=== PATIENT | female | born 1935 | race Caucasian/White ===

== ENCOUNTER → 2019-07-15 10:06 | Outpatient (BNVA) | payer MEDICARE, SELFPAY | PROVIDERS: Family Provider Nurse Practitioner; PCP Nurse Practitioner; Visit Provider Nurse Practitioner | DX: E03.8 Other specified hypothyroidism (principal); E78.2 Mixed hyperlipidemia; I10 Essential (primary) hypertension; E55.9 Vitamin D deficiency, unspecified | CPT/HCPCS: 80053; 80061; 82306; 84443 ==

== ENCOUNTER → 2019-12-30 08:05 | Outpatient (BNVA) | payer MEDICARE, SELFPAY | PROVIDERS: Family Provider Nurse Practitioner; PCP Nurse Practitioner; Visit Provider Nurse Practitioner | DX: E03.8 Other specified hypothyroidism (principal); E55.9 Vitamin D deficiency, unspecified; E78.2 Mixed hyperlipidemia; I10 Essential (primary) hypertension | CPT/HCPCS: 80053; 80061; 82306; 84443 ==

== ENCOUNTER → 2020-07-21 08:52 | Outpatient (BNVA) | payer MEDICARE, SELFPAY | PROVIDERS: Family Provider Nurse Practitioner; PCP Nurse Practitioner; Visit Provider Nurse Practitioner | DX: E03.8 Other specified hypothyroidism (principal); E78.2 Mixed hyperlipidemia; I10 Essential (primary) hypertension; E55.9 Vitamin D deficiency, unspecified | CPT/HCPCS: 80053; 80061; 82306; 84443 ==

== ENCOUNTER → 2021-02-10 08:52 | Outpatient (BNVA) | payer MEDICARE, SELFPAY | PROVIDERS: Family Provider Nurse Practitioner; PCP Nurse Practitioner; Visit Provider Nurse Practitioner | DX: E55.9 Vitamin D deficiency, unspecified (principal); I10 Essential (primary) hypertension; E78.2 Mixed hyperlipidemia; E03.8 Other specified hypothyroidism | CPT/HCPCS: 80053; 80061; 82306; 84443 ==

== ENCOUNTER → 2021-05-07 08:46 | Outpatient (BNVA) | payer MEDICARE, SELFPAY | PROVIDERS: Family Provider Nurse Practitioner; PCP Nurse Practitioner; Visit Provider Nurse Practitioner | DX: E03.8 Other specified hypothyroidism (principal); E55.9 Vitamin D deficiency, unspecified; I10 Essential (primary) hypertension | CPT/HCPCS: 80053; 80061; 82306; 84443 ==

== ENCOUNTER → 2021-08-12 13:36 | Outpatient (BNVA) | payer MEDICARE, SELFPAY | PROVIDERS: Family Provider Nurse Practitioner; PCP Nurse Practitioner; Visit Provider Nurse Practitioner | DX: E03.8 Other specified hypothyroidism (principal); E55.9 Vitamin D deficiency, unspecified; I10 Essential (primary) hypertension; E11.65 Type 2 diabetes mellitus with hyperglycemia | CPT/HCPCS: 80053; 80061; 82306; 84443 ==

== ENCOUNTER → 2022-01-31 09:47 | Outpatient (BNVA) | payer MEDICARE, SELFPAY | PROVIDERS: Family Provider Nurse Practitioner; PCP Nurse Practitioner; Visit Provider Nurse Practitioner | DX: E03.8 Other specified hypothyroidism (principal); E78.2 Mixed hyperlipidemia | CPT/HCPCS: 80053; 80061; 84443 ==

== ENCOUNTER → 2022-02-02 09:46 | Outpatient (BNVA) | payer MEDICARE, SELFPAY | PROVIDERS: Family Provider Nurse Practitioner; PCP Nurse Practitioner; Visit Provider Nurse Practitioner | DX: M25.512 Pain in left shoulder (principal) | CPT/HCPCS: 73030 ==

== ENCOUNTER → 2022-04-15 09:38 | Outpatient (BNVA) | payer MEDICARE, SELFPAY | PROVIDERS: Family Provider Nurse Practitioner; PCP Nurse Practitioner; Visit Provider Nurse Practitioner | DX: I10 Essential (primary) hypertension (principal); E03.8 Other specified hypothyroidism; E78.2 Mixed hyperlipidemia | CPT/HCPCS: 80053; 84443; 85025 ==

== ENCOUNTER 2022-07-30 10:54 | Emergency (ER) | payer MEDICARE, SELFPAY ==
[2022-07-30 10:59] VITALS: BP 124/62; PULSE 65; RESP 16; TEMP 37.2; O2SAT 99
--- NOTE | 2022-07-30 11:21 | XRR_ITS ---
PROCEDURE INFORMATION: Exam: XR Right Hand Exam date and time: 07/30/2022 11:42 AM Age: 86 years old Clinical indication: Pain; Hand; Right; Additional info: Pain post fall TECHNIQUE: Imaging protocol: Radiologic exam of the right hand. 3image(s) are provided. Views: 3 or more views. COMPARISON: No relevant prior studies available of the hand. Wrist same day. FINDINGS: Bones/joints: Osseous alignment is maintained.No displaced fracture or dislocation is appreciated. There is some chronic advanced degeneration of the 1st carpometacarpal junction predominantly with some adjacent soft tissue calcification. There is some chronic spurring of the dorsal interphalangeal distal joint margins. There is some mild chronic radiocarpal level narrowing. There is some subtle cortical irregularity about the proximal aspect of the 2nd and 3rd digit distal phalanges. Consider if there is localized point tenderness. Soft tissues: No radiopaque foreign body or subcutaneous emphysema is appreciated. There appears to be some slight prominence of the soft tissues overall. XR/XR hand RT min 3V* [id number] IMPRESSION: There is chronic degeneration with maintained osseous alignment. There is some subtle cortical irregularity which could represent spurring averaging although some nondisplaced injury could also present in this fashion of the proximal aspect of the 2nd and 3rd digit distal phalanges.
--- NOTE | 2022-07-30 11:21 | XRR_ITS ---
PROCEDURE INFORMATION: Exam: XR Right Wrist Exam date and time: 07/30/2022 11:42 AM Age: 86 years old Clinical indication: Pain; Wrist; Right; Additional info: Pain post fall TECHNIQUE: Imaging protocol: Radiologic exam of the right wrist. 2image(s) are provided. Views: 1 or 2 views. COMPARISON: No relevant prior studies available of the wrist. Hand same day. FINDINGS: Bones/joints: Osseous alignment is maintained.No displaced fracture or dislocation is appreciated. There is chronic degeneration of the 1st carpometacarpal junction predominantly with the adjacent soft tissue calcification. There are subchondral cystic degenerative changes. There is radiocarpal degenerative narrowing present. There is some linear lucency indicative of nondisplaced fracture of the distal radius of the radiocarpal junction. Soft tissues: No radiopaque foreign body or subcutaneous emphysema is appreciated. XR/XR wrist RT 2V [id number] IMPRESSION: There is subtle cortical irregularity and linear lucency indicative of nondisplaced fracture of the distal radius of the radiocarpal junction. No displaced fracture or dislocation is appreciated.
--- NOTE | 2022-07-30 11:21 | XRR_ITS ---
PROCEDURE INFORMATION: Exam: XR Right Humerus Exam date and time: 07/30/2022 11:42 AM Age: 86 years old Clinical indication: Pain; Upper arm; Right; Additional info: Pain post fall TECHNIQUE: Imaging protocol: Radiologic exam of the right humerus. 3image(s) are provided. Views: 2 or more views. COMPARISON: No relevant prior studies available. FINDINGS: Bones/joints: Osseous alignment is maintained.No displaced fracture or dislocation is appreciated.There is slightly decreased bone mineralization overall. There is chronic degeneration of the shoulder with subacromial and glenohumeral joint space narrowing indicative of chronic rotator cuff disease along with acromioclavicular hypertrophy. There is chronic degeneration of the superolateral aspect of the humeral head. There is some chronic spurring of the humeral epicondyles. There is some mild spurring of the olecranon and radial head with no fat pad elevation currently appreciated. Lungs: No lobar consolidation is appreciated. Pleural space: No pneumothorax is appreciated. Soft tissues: No radiopaque foreign body or subcutaneous emphysema is appreciated. XR/[place] [id number] IMPRESSION: There are chronic degenerative changes with maintained glenohumeral alignment.No fracture or dislocation is appreciated.
--- NOTE | 2022-07-30 12:11 | PC.NURSE ---
PT FELL FROM STANDING ON A CHAIR ATTEMPTING TO HANG UP A CLOCK PT LANDED ON HER RIGHT SIDE AND HAS A SWOLLEN RIGHT HAND. PT DENIES HITTING HER HEAD AND WAS DOWN FOR OVER 12 HOURS.
[2022-07-30 12:13] VITALS: BP 124/62; PULSE 58; RESP 16; O2SAT 98
--- NOTE | 2022-07-30 12:31 | ED_ITS ---
HPI - Extremity Problem General: Chief complaint: Extremity Injury, Upper Stated complaint: RIGHT HAND /WRIST PAIN S/P FALL Time Seen by Provider: 07/30/22 11:07 History of Present Illness: 86-year-old female presents emergency room via EMS from a local rehab center after he preplacement few weeks ago. Patient was complaining of right hip and knee pain within the past few days. Described the pain as throbbing sensation with severity of 7 out of 10. She further reviews that the pain started after her rehab section few days ago but denies any direct fall or injury. No fever, chills, nausea or vomiting. Review of Systems General: Reports: 10 or more systems reviewed and unremarkable except in HPI and below Resp: Reports: dyspnea GI: Denies: nausea, vomiting or hematemesis Musc: Reports: extremity pain, extremity swelling, joint swelling and other (Patient complaining of right humerus pain right wrist pain and right hand); Denies: neck pain, back pain, limited range of motion or deformity Neuro: Denies: headache(s), numbness in extremities, weakness in extremities, sensory changes, lack of coordination, difficulty walking, frequent falls, dizziness, vertigo, confusion or behavioral changes PFSH ED PFSH: Medical History Adult onset hypothyroidism Basal cell carcinoma (BCC) Cigarette smoker Essential (primary) hypertension Mixed hyperlipidemia Vitamin D insufficiency Surgical History History of cataract surgery History of hip surgery right Family History Other CHF (congestive heart failure) Cancer Diabetes Social History Smoking and tobacco status: current every day smoker Second hand smoke exposure: Yes Smoking risk assessment/counseling performed?: Yes Alcohol intake: never Desire information about alcohol rehabilitation?: No Counseling given: No Substance/Drug Use: never Desire information about substance/drug rehabilitation?: No Counseling given: No Adopted: No Caregiver/support person: No Lives independently: Yes Marital status: Single Number of children: 2 Current occupational status: retired Do you think of yourself as: Straight/Heterosexual Current gender identity: Female Physical Exam Narrative: EXAM NARRATIVE: Patient is awake and alert without acute distress. Const: COMMON NORMALS: no acute distress, average body habitus, patient oriented x3 and no limitations HENMT: COMMON NORMALS: normocephalic and atraumatic HEAD & SCALP: normal to inspection, normocephalic, atraumatic and Acrocyanosis present; no abrasion, no Abarca's sign, no contusion and no cranial bruits FACE & SINUS: Acrocyanosis present Neck/C-Spine: GENERAL: Yes normal visual inspection, Yes trachea midline, Yes anterior neck swelling and Yes lymphadenopathy Chest: COMMONS NORMALS: normal inspection of the chest, normal palpation of entire chest wall, normal inspection of the breasts and normal palpation of the breasts Breast/axilla inspection: Yes normal inspection of the breasts BREAST/AXILLA PALPATION: Yes normal palpation of the breasts Resp: COMMON NORMALS: normal respiratory effort and No retractions Extremity: NARRATIVE EXTREMITY EXAM: Some diffuse swelling of the right knee with some tenderness upon palpation to the anterior aspect. Emergency motion at the right hip. Obvious deformity or shortening skin without any signs of acute infection RIGHT UPPER EXTREMITY: No clavicle, No bony scapula, Yes upper arm (Tenderness along the lateral aspect of the humerus no obvious deformity.) and Yes wrist (Right wrist with somewhat swelling and bruising but no obvious deformity. ) Right wrist: Yes palpation and Yes neurovascular exam Neuro: COMMON NORMALS: patient oriented x3 Skin: COMMON NORMALS: no rashes or lesions noted, no wounds and turgor normal GENERAL SKIN EXAM: no rashes or lesions noted and turgor normal Course ED course: Patient made comfortable emergency room. She declined pain medication at this time. Splint was applied to the wrist after the x-ray was reviewed and discussed with patient and family. Daughter was also at bedside given history. Discussed patient with family. Also discussed the x-ray finding with family and they are willing to take patient back to [facility] for further rehab. Consultations: Consultation #1: Discussed patient with the orthopedics on-call . I reviewed the pelvic x-ray and recommended getting x-ray of the knee. The x-ray was done Vital Signs: Vital signs: Vital Signs Temperature 98.9 F 07/30/22 10:59 Pulse Rate 58 L 07/30/22 12:13 Respiratory Rate 16 07/30/22 12:13 Blood Pressure 124/62 07/30/22 12:13 Pulse Oximetry 98 07/30/22 12:13 Oxygen Delivery Me thod Room Air 07/30/22 12:13 MDM - Extremity (Nontraumatic) Medical Decision Making History provided by daughter and patient. Discussed x-ray finding with patient. Recommend close follow-up PCP. We will follow-up with official x-ray findings at this time. Consultation with orthopedics on-call Medical Records I reviewed the patient's medical records. Lab Data Radiology Impressions Hand X-Ray 07/30/22 11:21 IMPRESSION: There is chronic degeneration with maintained osseous alignment. There is some subtle cortical irregularity which could represent spurring averaging although some nondisplaced injury could also present in this fashion of the proximal aspect of the 2nd and 3rd digit distal phalanges. Humerus X-Ray 07/30/22 11:21 IMPRESSION: There are chronic degenerative changes with maintained glenohumeral alignment.No fracture or dislocation is appreciated. Wrist X-Ray 07/30/22 11:21 IMPRESSION: There is subtle cortical irregularity and linear lucency indicative of nondisplaced fracture of the distal radius of the radiocarpal junction. No displaced fracture or dislocation is appreciated. Imaging Data Other Xray: My impression: Humerus, wrist and hand no obvious fracture Discharge Plan Discharge Patient Disposition: Home Clinical Impression: Fall, Contusion of right wrist Condition: Stable Prescriptions: New naproxen 375 mg tablet,delayed release (DR/EC) 375 mg PO Q12H PRN (Reason: pain) Qty: 20 0RF No Action levothyroxine 150 mcg tablet 150 mcg PO DAILY Qty: 90 0RF cholecalciferol (vitamin D3) 1,250 mcg (50,000 unit) tablet 50,000 unit PO .1st and 16th monthly Qty: 2 5RF atorvastatin 10 mg tablet 10 mg PO DAILY Qty: 30 5RF amlodipine [Norvasc] 10 mg tablet 10 mg PO DAILY Qty: 30 5RF lisinopril 40 mg tablet 40 mg PO DAILY Qty: 30 5RF Discharge Orders: Discharge ED (Routine); Ordered 07/30/22 Ordered By: Jaqui Andrade Referrals: Marilou Pastrana, BEE BREEDER-C [Primary Care Provider] - Discharge Diet: Regular Discharge Activity: Resume usual activity Patient Instructions: Opioid Safety, Pain Management Coding Level of Care Code ED Tile And Marble Setter for Srinivas Henriquez
== END 2022-07-30 12:59 | disposition home or self-care (01) ==
PROVIDERS: Emergency Provider Family Medicine; PCP Nurse Practitioner
DX: S60.211A Contusion of right wrist, initial encounter (principal); F17.210 Nicotine dependence, cigarettes, uncomplicated; I10 Essential (primary) hypertension; E78.2 Mixed hyperlipidemia; X58.XXXA Exposure to other specified factors, initial encounter
CPT/HCPCS: 73060; 73100; 73130; 99283

== ENCOUNTER → 2022-08-11 16:10 | Outpatient (BNVA) | payer MEDICARE, SELFPAY | PROVIDERS: PCP Nurse Practitioner; Visit Provider Nurse Practitioner | DX: R53.83 Other fatigue (principal) | CPT/HCPCS: 80053; 81000; 84443; 85025; 87077; 87086; 87184 ==

== ENCOUNTER 2022-09-11 11:05 | Inpatient (IN) | payer MEDICARE, SELFPAY ==
[2022-09-11] VITALS (81 sets, daily range): BP systolic 119–178; BP diastolic 47–94; PULSE 40–73; RESP 8–31; TEMP 36.8–37.1; O2SAT 89–100
--- NOTE | 2022-09-11 11:16 | W.ED.FALL ---
HPI - Fall General: Chief Complaint: Fall Stated Complaint: fall, weakness Time Seen by Provider: 09/11/22 11:15 History of Present Illness: Ms. Davies is a 86-year-old lady presenting with upper department for episode of generalized weakness and malaise. She reports that she was going to the bathroom and felt lightheaded so she went to sit on the floor. She was on the floor for a few hours and unable to get up. She currently feels improved. She does note increased urination over the past few days but otherwise denies changes in health. Denies focal neurologic symptoms or head strike/loss of consciousness. No other specific changes in health, exacerbating, or alleviating factors identified. Onset (ago): hour(s) Prolonged down time: hour(s) Symptoms prior to fall: lightheadedness Review of Systems General: Reports: 10 or more systems reviewed and unremarkable except in HPI and below PFSH ED PFSH: Medical History Accelerated hypertension Adult onset hypothyroidism Basal cell carcinoma (BCC) Bradycardia Cigarette smoker Essential (primary) hypertension Meningioma, cerebral Mixed hyperlipidemia Rhabdomyolysis Syncope Vitamin D insufficiency Surgical History History of cataract surgery History of hip surgery right Family History Other CHF (congestive heart failure) Cancer Diabetes Social History Smoking and tobacco status: current every day smoker Second hand smoke exposure: Yes Smoking risk assessment/counseling performed?: Yes Alcohol intake: never Desire information about alcohol rehabilitation?: No Counseling given: No Substance/Drug Use: never Desire information about substance/drug rehabilitation?: No Counseling given: No Adopted: No Caregiver/support person: No Lives independently: Yes Marital status: Single Number of children: 2 Current occupational status: retired Do you think of yourself as: Straight/Heterosexual Current gender identity: Female Physical Exam Const: COMMON NORMALS: patient oriented x3 and alert GENERAL APPEARANCE: cooperative and well developed HENMT: COMMON NORMALS: normocephalic and atraumatic HEAD & SCALP: normocephalic and atraumatic THROAT: posterior oropharynx normal OTHER: No christopher signs or raccoon eyes. No hemotympanum. No otorrhea or rhinorrhea. Jaw alignment normal. Dentition baseline. No obvious bony step-offs. No septal hematoma. No evidence of ocular entrapment. Eye: COMMON NORMALS: conjunctivae normal CONJUNCTIVA: Yes conjunctivae normal SCLERA: sclerae normal Neck/C-Spine: COMMON NORMALS: supple GENERAL: Yes trachea midline Resp: COMMON NORMALS: normal respiratory effort and clear to auscultation bilaterally EFFORT & INSPECTION: Yes able to speak in complete sentences AUSCULTATION: clear to auscultation bilaterally Cardio: COMMON NORMALS: regular rate and regular rhythm RATE: regular rate RHYTHM: regular rhythm GI: COMMON NORMALS: Soft to palpation PALPATION: Yes Soft to palpation and No Tenderness to palpation present (GI) Extremity: GENERAL: Yes normal exam except as noted and No edema Neuro: COMMON NORMALS: patient oriented x3, CN's II-XII intact bilaterally, moves all extremities, no focal motor deficits and no sensory deficits noted SENSORIUM/ORIENTATION: Yes alert and No Orientation impaired Psych: COMMON NORMALS: mental status grossly normal and Normal thought process present THOUGHT PROCESS: Normal thought process present Course Vital Signs: Vital signs: Vital Signs Temperature 97.9 F 09/14/22 04:00 Pulse Rate 50 L 09/14/22 14:03 Respiratory Rate 17 09/14/22 14:03 Blood Pressure 166/72 09/14/22 14:03 Pulse Oximetry 97 09/14/22 14:03 Oxygen Delivery Me thod Room Air 09/13/22 16:00 MDM - Fall Medical Decision Making 86-year-old lady presenting with chief complaint of fall and downtime. Has had generalized illness lately. Exam as above. Nontoxic. Head to toe exam performed. EKG demonstrates sinus rhythm with normal axis and intervals, no STEMI. Labs with no leukocytosis, normal hemoglobin and platelet count. Metabolic panel with normal electrolytes. CKD present. Elevated CK. Negative range 2-hour delta troponin. UA pending. Chest x-ray with reported Posterior right seventh rib fracture however on reexamination patient has no tenderness in this region. Patient treated with IV fluids during ED course. She is noted to have bradycardia which may be related to generalized weakness. There is evidence of rhabdomyolysis based on elevated CK. The results of ED evaluation were discussed with the patient including plan for admission due to requirement for level of care not available if discharged to prevent significant worsening/deterioration. Patient agreeable with plan. Discussed with hospitalist service who was agreeable to admit patient. Medical Records I reviewed the patient's medical records. Lab Data I reviewed the patient's lab results. 09/12/22 02:55 09/12/22 02:55 Radiology Impressions Chest X-Ray 09/11/22 11:24 IMPRESSION: 1. Posterior right 7th rib fracture. 2. Stable cardiomegaly. Carotid Doppler Study 09/11/22 18:18 IMPRESSION: 1. No hemodynamically significant stenosis. 2. There is 50-69% stenosis in the left distal common carotid artery at the bifurcation. REFERENCES: SRU CRITERIA. The degree of internal carotid artery stenosis is based on criteria defined by the Society of Radiologists in Ultrasound (SRU). Normal is no stenosis. Mild is less than 50% stenosis. Moderate is 50-69% stenosis. Severe is greater than 69% stenosis to near occlusion. Near occlusion is a markedly narrowed lumen. Total occlusion is no detectable patent lumen. Head CT 09/11/22 18:21 IMPRESSION: 1. No acute intracranial abnormality. 2. Chronic right sphenoid sinusitis changes. 3. There is a 1 cm left frontal convexity calcified meningioma present. Laboratory Results WBC 6.9 10^3/uL (4.0-10.0) 09/12/22 02:55 RBC 3.55 10^6/uL (4.1-5.3) L 09/12/22 02:55 Hgb 11.2 g/dL (11.5-15.3) L 09/12/22 02:55 Hct 35.0 % (37.0-47.0) L 09/12/22 02:55 MCV 98.6 fl (81-99) 09/12/22 02:55 MCH 31.5 pg (28.0-34.0) 09/12/22 02:55 MCHC 32.0 g/dL (30.0-36.0) D 09/12/22 02:55 RDW 14.4 % (12.1-15.1) 09/12/22 02:55 Plt Count 155 10^3/cmm (130-400) 09/12/22 02:55 MPV 11.2 fL (7.4-10.4) H 09/12/22 02:55 Neut % (Auto) 73.3 % 09/12/22 02:55 Lymph % (Auto) 18.2 % 09/12/22 02:55 [place] % (Auto) 7.3 % 09/12/22 02:55 Eos % (Auto) 0.4 % 09/12/22 02:55 Baso % (Auto) 0.4 % 09/12/22 02:55 Neut # (Auto) 5.04 10^3/uL (1.8-7.7) 09/12/22 02:55 Lymph # (Auto) 1.3 10^3/uL (0.8-4.8) 09/12/22 02:55 [place] # (Auto) 0.5 10^3/uL (0.2-0.9) 09/12/22 02:55 Eos # (Auto) 0.0 10^3/uL (0.0-0.8) 09/12/22 02:55 Baso # (Auto) 0.0 10^3/uL (0.0-0.1) 09/12/22 02:55 Nucleated RBC % (auto) 0 % 09/12/22 02:55 Nucleated RBCs # 0.0 /100WBC 09/12/22 02:55 Sodium 146 mmol/L (136-145) H 09/12/22 02:55 Potassium 3.6 mmol/L (3.5-5.1) 09/12/22 02:55 Chloride 111 mmol/L (98-107) H 09/12/22 02:55 Carbon Dioxide 21 mmol/L (22-29) L 09/12/22 02:55 Anion Gap 17.6 (5-19) 09/12/22 02:55 BUN 27 mg/dL (8-23) H 09/12/22 02:55 Creatinine 1.1 mg/dL (0.5-0.9) H 09/12/22 02:55 GFR Calculation Not Reportable 09/12/22 02:55 Glucose 70 mg/dL (65-115) 09/12/22 02:55 Calculated Osmolality 306 mOsm/kg (285-295) H 09/12/22 02:55 Calcium 8.3 mg/dL (8.5-10.5) L 09/12/22 02:55 Magnesium 2.1 mg/dL (1.7-2.3) 09/11/22 11:42 Total Bilirubin 0.5 mg/dL (0.15-1.2) 09/12/22 02:55 AST 35 U/L (0-32) H 09/12/22 02:55 ALT 25 U/L (0-33) 09/12/22 02:55 Alkaline Phosphatase 59 U/L (35-105) 09/12/22 02:55 Creatine Kinase 372 U/L (26-192) H* 09/12/22 02:55 Troponin T Baseline 67 ng/L (0-10) H 09/11/22 11:42 Troponin T 120 Minute 61.06 ng/L (0-10) H 09/11/22 13:40 Delta Troponin T -5.94 ABS# (0-10) L 09/11/22 13:40 Troponin T Hi Sens 6Hr 62.49 ng/L (0-10) H 09/11/22 17:55 Troponin T Hi Sens 6Hr Delta -4.51 ng/L (0-12) L 09/11/22 17:55 Total Protein 5.0 g/dL (6.6-8.7) L 09/12/22 02:55 Albumin 3.1 g/dL (3.5-5.2) L 09/12/22 02:55 Globulin 1.9 g/dL (1.3-4.6) 09/12/22 02:55 TSH 1.48 uIU/mL (0.27-4.20) 09/11/22 11:42 Urine Color Yellow (Yellow) 09/12/22 13:10 Urine Appearance Clear (CLEAR) 09/12/22 13:10 Urine pH 5 (5-7) 09/12/22 13:10 Ur Specific [place] 1.020 (1.005-1.030) 09/12/22 13:10 Urine Protein Neg (Negative) 09/12/22 13:10 Urine Glucose (UA) Norm (Normal) 09/12/22 13:10 Urine Ketones 1+ (Negative) H 09/12/22 13:10 Urine Blood 2+ (Negative) H 09/12/22 13:10 Urine Nitrate Negative (Negative) 09/12/22 13:10 Urine Bilirubin Neg (Negative) 09/12/22 13:10 Urine Urobilinogen Norm mg/dL (Negative) 09/12/22 13:10 Ur Leukocyte Esterase Negative (Negative) 09/12/22 13:10 Urine RBC 0-4 /hpf (0-2) H 09/12/22 13:10 Urine WBC None /hpf (0-5) 09/12/22 13:10 Ur Squamous Epith Cells Rare /hpf (0-5) 09/12/22 13:10 Amorphous Sediment Not Reportable 09/12/22 13:10 Urine Bacteria Trace /hpf (NONE) 09/12/22 13:10 Discharge Plan Discharge Patient Disposition: Placed in Observation Admit Provider: Anne Pastor Clinical Impression: Rhabdomyolysis, Generalized weakness, Bradycardia Discharge Diet: Regular Discharge Activity: Increase activity as tolerated Coding Level of Care Code ED Electric Meter Inspector for Srinivas Henriquez
--- NOTE | 2022-09-11 11:24 | XRR_ITS ---
PROCEDURE INFORMATION: Exam: XR Chest Exam date and time: 09/11/2022 11:48 AM Age: 86 years old Clinical indication: Other: Weakness; Additional info: Weakness, lightheaded TECHNIQUE: Imaging protocol: Radiologic exam of the chest. Views: 1 view. COMPARISON: CR XR chest 1V [id number] 01/10/2018 4:29 PM FINDINGS: Lungs: The lung parenchyma is clear. Pleural spaces: No pneumothorax. No pleural effusion. Heart/Mediastinum: The heart is mildly enlarged for size, similar to prior exam. Bones/joints: Posterior right 7th rib fracture. XR/XR chest 1V portable [id number] IMPRESSION: 1. Posterior right 7th rib fracture. 2. Stable cardiomegaly.
--- NOTE | 2022-09-11 11:25 | ECG_ITS ---
[facility] Test Date: 2022-09-11 Pat Name: Amy Davies Department: Room: Gender: Female Administrative Asst: : 1935 Requested By: German Galvan Order Number: [id number] Roca MD: Patrick Krause M.D. Measurements Intervals [place] Rate: 50 P: 80 [place]: 138 QRS: 75 QRSD: 102 T: 81 QT: 511 QTc: 470 Interpretive Statements SINUS BRADYCARDIA WITH SINUS ARRHYTHMIA PROLONGED QT INTERVAL Compared to ECG 01/10/2018 17:34:44 Prolonged QT interval now present Sinus rhythm no longer present Electronically Signed On 09-12-2022 8:31:56 CDT by Patrick Krause M.D. [id number]
[2022-09-11 11:57] LABS: Basophils % 0.2 %; Eosinophils % 0.1 %; Hematocrit 38.5 % (37.0-47.0); Lymphocytes # 1.4 10^3/uL (0.8-4.8); Lymphocytes % 17.6 %; Mean Corpuscular HGB Conc 33.8 g/dL (30.0-36.0); Mean Corpuscular Volume 94.8 fl (81-99); Mean Platelet Volume 10.5 fL (7.4-10.4); Monocytes # 0.5 10^3/uL (0.2-0.9); Monocytes % 5.9 %; Neutrophils # 6.17 10^3/uL (1.8-7.7); Neutrophils % 75.7 %; Nucleated Red Blood Cells % 0 %; Platelet Count 176 10^3/cmm (130-400); Red Blood Count 4.06 10^6/uL (4.1-5.3); Red Cell Distribution Width 14.3 % (12.1-15.1); White Blood Count 8.2 10^3/uL (4.0-10.0)
[2022-09-11 12:23] LABS: Troponin(5th) Baseline 67 ng/L (0-10)
[2022-09-11 12:32] LABS: Alanine Aminotransferase 33 U/L (0-33); Albumin Level 3.8 g/dL (3.5-5.2); Alkaline Phosphatase 72 U/L (35-105); Aspartate Amino Transferase 57 U/L (0-32); Blood Urea Nitrogen 34 mg/dL (8-23); Carbon Dioxide 22 mmol/L (22-29); Chloride 107 mmol/L (98-107); Globulin 2.2 g/dL (1.3-4.6); Glucose 70 mg/dL (65-115); Magnesium 2.1 mg/dL (1.7-2.3); Osmolality Calculated 304 mOsm/kg (285-295); Sodium 144 mmol/L (136-145); Thyroid Stimulating Hormone 1.48 uIU/mL (0.27-4.20); Total Bilirubin 0.6 mg/dL (0.15-1.2)
[2022-09-11 12:44] LABS: Creatine Phosphokinase 932 U/L (26-192)
[2022-09-11] MEDS: sodium chloride 0.9% 1,000 ML 999 ML IV (12:53)
--- NOTE | 2022-09-11 14:03 | ECG_ITS ---
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 Measurements Intervals [place] Rate: 47 P: 139 [place]: 148 QRS: 70 QRSD: 102 T: 78 QT: 497 QTc: 444 Interpretive Statements SINUS BRADYCARDIA Compared to ECG 09/11/2022 11:32:09 Sinus arrhythmia no longer present Prolonged QT interval no longer present Electronically Signed On 09-12-2022 8:36:49 CDT by Patrick Krause M.D. [id number]
[2022-09-11 14:32] LABS: Troponin 5 2HR 61.06 ng/L (0-10)
[2022-09-11 14:36] LABS: Troponin 5 2HR Delta -5.94 ABS# (0-10)
--- NOTE | 2022-09-11 16:22 | PC.NURSE ---
Received patient from ER staff at 1506. Patient is alert to person, place, time, and situation. Walked from ER stretcher to bed with 1 person assist, she gets lightheaded while doing so. HR: 43, BP 175/66, SPO2:97% on room air, Temp: 97.6. Belongings include Cellphone and clothing. Orthostatic show blood pressure maintains (See electronic chart), but patient feels increasingly lightheadedfrom laying to sitting to standing. Asymptomatic while at rest.
--- NOTE | 2022-09-11 18:04 | ECG_ITS ---
[facility] Test Date: 2022-09-11 Pat Name: Amy Davies Department: Room: [facility] Gender: Female User Interface Engineer: : 1935 Requested By: German Galvan Order Number: [id number] Chanelle MD: Patrick Krause M.D. Measurements Intervals [place] Rate: 39 P: -22 [place]: 149 QRS: 69 QRSD: 95 T: 78 QT: 502 QTc: 408 Interpretive Statements SINUS BRADYCARDIA NONSPECIFIC T-WAVE ABNORMALITY Compared to ECG 09/11/2022 14:03:06 T-wave abnormality now present Electronically Signed On 09-12-2022 8:36:10 CDT by Patrick Krause M.D. [id number]
--- NOTE | 2022-09-11 18:18 | USCV_ITS ---
Amy Davies Age: 86 Gender: F : 1935 Exam Date: 09/11/2022 19:08 Ordering Phys: Anne Pastor MD Technologist: YAMEL Exam Location: [facility] [place] Indication: syncope BP: / HR: Rhythm: Sinus Technical Quality: Adequate MEASUREMENTS (Male / Female) Normal Values FINDINGS Left Ventricle Left ventricle is normal size. LV systolic function is normal with EF of 55 to 60%. No regional wall motion abnormalities are seen. Right Ventricle Normal in size and function Right Atrium Not well visualized Left Atrium Dilated Mitral Valve Structurally normal mitral valve. Mild mitral regurgitation Aortic Valve Mild aortic thickening. No significant stenosis or regurgitation. Mild aortic regurgitation. Tricuspid Valve Trace tricuspid regurgitation. Insufficient TR jet to calculate RVSP Pulmonic Valve Mild pulmonic regurgitation. Pericardium Normal Aorta Normal in size IVC Appears to be normal CONCLUSIONS LV systolic function is normal with EF of 55 to 60%. Left atrial dilation Mild mitral regurgitation Mild aortic regurgitation Trace tricuspid regurgitation Mild pulmonic regurgitation No comparison studies are available. Patrick Krause MD (Electronically Signed) Final Date: 12 September 2022 17:36 S
--- NOTE | 2022-09-11 18:18 | USR_ITS ---
PROCEDURE INFORMATION: Exam: US Duplex Bilateral Extracranial Arteries; Complete; Carotid Arteries Exam date and time: 09/11/2022 7:27 PM Age: 86 years old Clinical indication: Syncope and collapse TECHNIQUE: Imaging protocol: Real-time duplex ultrasound scan of the bilateral extracranial arteries combining nava scale, color Doppler and spectral waveform analysis with image documentation. Complete exam. Exam focused on the carotid arteries. COMPARISON: CT head wo con* [id number] 09/11/2022 6:37 PM FINDINGS: Right common carotid artery: Unremarkable. No occlusion or stenosis. Waveforms are normal. Right internal carotid artery: Moderate calcified atherosclerotic plaque. No occlusion or stenosis. Waveforms are normal. Right ICA/CCA ratio: Within normal limits. Right external carotid artery: Patent. Right vertebral artery: Unremarkable. Antegrade flow. Left common carotid artery: There is 50-69% stenosis in the left distal common carotid artery at the bifurcation. Left internal carotid artery: Moderate calcified atherosclerotic plaque. No occlusion or stenosis. Waveforms are normal. Left ICA/CCA ratio: Within normal limits. Left external carotid artery: Patent. Left vertebral artery: Unremarkable. Antegrade flow. US/CV carotid duplex BI* [id number] IMPRESSION: 1. No hemodynamically significant stenosis. 2. There is 50-69% stenosis in the left distal common carotid artery at the bifurcation. REFERENCES: SRU CRITERIA. The degree of internal carotid artery stenosis is based on criteria defined by the Society of Radiologists in Ultrasound (SRU). Normal is no stenosis. Mild is less than 50% stenosis. Moderate is 50-69% stenosis. Severe is greater than 69% stenosis to near occlusion. Near occlusion is a markedly narrowed lumen. Total occlusion is no detectable patent lumen.
--- NOTE | 2022-09-11 18:18 | PC.NURSE ---
Patient has not urinated since arrival in ER. Nurse bladder scanned patient and it shows greater than 305 mL . Patient does not report an urge to urinate, bladder does not feel distended. Nurse alerted Dr mathis to bladder scan results. No new orders received.
--- NOTE | 2022-09-11 18:21 | CTR_ITS ---
PROCEDURE INFORMATION: Exam: CT Head Without Contrast Exam date and time: 09/11/2022 6:37 PM Age: 86 years old Clinical indication: Syncope and collapse; Patient HX: Syncopal episode TECHNIQUE: Imaging protocol: Computed tomography of the head without contrast. Radiation optimization: All CT scans at this facility use at least one of these dose optimization techniques: automated exposure control; mA and/or kV adjustment per patient size (includes targeted exams where dose is matched to clinical indication); or iterative reconstruction. REPORTING DATA: Count of CT and Cardiac NM exams in prior 12 months: This patient has received 0 known CTs and 0 known cardiac nuclear medicine studies in the 12 months prior to the current study. COMPARISON: No relevant prior studies available. RADIATION DOSE METRICS: Total DLP (mGy-cm): 1119.48 FINDINGS: Brain: No acute infarct. No hemorrhage. Unremarkable white matter for age. There is a calcified left frontal convexity extra-axial mass measuring 1 cm on series 4, image 45 which is most likely a meningioma. No mass effect. Left basal ganglia chronic lacunar type infarct. Cerebral ventricles: No ventriculomegaly. Paranasal sinuses: Scattered paranasal sinus mucosal thickening, without air-fluid level present. Chronic right sphenoid opacification. Mastoid air cells: Visualized mastoid air cells are well aerated. Bones/joints: Chronic right sphenoid osteitis changes. No acute fracture. Soft tissues: Unremarkable. CT/CT head wo con* [id number] IMPRESSION: 1. No acute intracranial abnormality. 2. Chronic right sphenoid sinusitis changes. 3. There is a 1 cm left frontal convexity calcified meningioma present.
--- NOTE | 2022-09-11 18:22 | P.HP_ITS ---
Providers/Chief Complaint Admitting Physician: Anne Pastor MD Primary Care Provider: Marilou Pastrana, DESIGN STUDIO CONSULTANT-C Chief Complaint: fall, weakness History of Present Illness Amy Davies is a 86 year old female who presented to the ER today after sustaining a fall. Patient states that she went to the bathroom this morning and then she just dropped to the floor. She is unable to specify if she suffered a mechanical fall or her legs gave way. She denied feeling any dizziness, nausea, vomiting, chest pain or palpitations at that time. She denies losing consciousness..She states that after she fell, she rearranged her bathroom floor and cleaned it. She was unable to get back up. Again unable to specify why. She was found by family member and brought to the ER. Her daughters are not currently available to provide further history. In the ER she was noted to have sinus bradycardia with HR 40-50. SBP 160s without orthostatic drop. Denies any recent fever, chills , nausea, vomiting , abdominal pain recently. She was able to ambulate from ER stretcher to hospital bed, howevre did complain of some dizziness on doing so. There is no past h/o seziures. Denies history of recurrent falls however was here in the ER on 07/30 with a fractured wrist after a fall. There is also evidence of a right 7th rib fracture. Review of Systems General: Reports: 10 or more systems reviewed and unremarkable except in HPI and below Const: Denies: fever(s), chills or body aches Eyes: Denies: change in vision, blurry vision or photophobia ENMT: Reports: hoarseness; Denies: throat pain, enlarged tonsils, odynophagia or nasal congestion Card: Denies: chest pain, palpitations, irregular heart rhythm, edema, swelling of feet/ankles, lightheadedness, pre-syncope, dyspnea on exertion or orthopnea Resp: Denies: dyspnea, productive cough, non-productive cough, wheezing, stridor, pain on inspiration, change in phlegm color, hemoptysis or chest congestion GI: Denies: abdominal pain, nausea, vomiting, hematemesis, coffee ground emesis, dysphagia, heartburn, diarrhea, constipation, GI cramping, change in stool character, hematochezia or melena : Denies: flank pain, difficulty voiding, dysuria, urinary frequency, urinary urgency, urinary hesitancy or hematuria Musc: Denies: neck pain, back pain, extremity pain, joint swelling, joint warmth or deformity Neuro: Denies: headache(s), numbness in extremities, weakness in extremities, sensory changes, difficulty walking, frequent falls, dizziness, vertigo, behavioral changes, Slurred speech present or seizure-like activity Psych: Denies: anxiety, depression, suicidal ideation or homicidal ideation Endo: Denies: polyuria, polydipsia, tired all the time, cold intolerance or hot flashes Haider/Lymph: Denies: easy bruising or easy bleeding Medications/Allergies Home Medications Medication Instructions Recorded Confirmed Last Taken Type cholecalciferol (vitamin D3) 1,250 50,000 unit PO . and 02/02/22 09/11/22 Unknown Rx mcg (50,000 unit) tablet monthly #2 tabs naproxen 375 mg tablet,delayed 375 mg PO Q12H PRN pain #20 tabs 07/30/22 09/11/22 Unknown Rx release amlodipine 10 mg tablet (Norvasc) 10 mg PO DAILY #30 tabs 08/11/22 09/11/22 Unknown Rx atorvastatin 10 mg tablet 10 mg PO DAILY #30 tabs 08/11/22 09/11/22 Unknown Rx lisinopril 40 mg tablet 40 mg PO DAILY #30 tabs 08/11/22 09/11/22 Unknown Rx levothyroxine 175 mcg tablet 175 mcg PO DAILY #90 tabs 08/15/22 09/11/22 Unknown Rx Allergies Allergy/AdvReac Type Severity Reaction Status Date / Time No Known Allergies Allergy Verified 09/11/22 11:14 PFSH Acute PFSH: Medical History Adult onset hypothyroidism Basal cell carcinoma (BCC) Cigarette smoker Essential (primary) hypertension Mixed hyperlipidemia Vitamin D insufficiency Surgical History History of cataract surgery History of hip surgery right Family History Other CHF (congestive heart failure) Cancer Diabetes Social History Smoking and tobacco status: current every day smoker Second hand smoke exposure: Yes Smoking risk assessment/counseling performed?: Yes Alcohol intake: never Desire information about alcohol rehabilitation?: No Counseling given: No Substance/Drug Use: never Desire information about substance/drug rehabilitation?: No Counseling given: No Adopted: No Caregiver/support person: No Lives independently: Yes Marital status: Single Number of children: 2 Current occupational status: retired Do you think of yourself as: Straight/Heterosexual Current gender identity: Female Vitals/I&O/Wt Last Vital Signs Temp 98.2 F 09/11/22 11:06 Pulse 58 L 09/11/22 14:00 Resp 18 09/11/22 14:00 BP 154/55 09/11/22 16:01 Pulse Ox 100 09/11/22 14:00 O2 Del Method Room Air 09/11/22 15:20 09/11/22 09/11/22 09/11/22 06:59 14:59 22:59 Intake Total 1200 / 1200 Balance 1200 / 1200 Weight last 48 hrs Weight 68.039 kg Physical Exam Narrative: General: No acute distress, AO x3 HEENT: PERRLA, pupils bilaterally equal and reactive, pallors not present Chest: Normal vesicular breath sounds, systolic murmur+, equal good air entry bilaterally CVS: S1-S2 regular, no murmurs, no tachycardia, no gallops, no rubs Abdomen: Soft, nontender, no organomegaly, bowel sounds present Neuro: No focal deficits, no facial deformity, AO x3, power 5/5 in all limbs Data 09/12/22 02:55 09/12/22 02:55 A&P Assessment and plan (1) Syncope: Patient presents to the hospital with what may be a syncopal episode. She is vague in her history as to the circumstances of her fall , but sates that she went to the bathroom and then just landed on the floor in unclear circumstances and remained there until she was found by family. Patient states the fall happened this morning, but visitor at bedside states that this was yesterday. Uncertain if they are referring to 2 separate falls or the same episode. Previously in July she visited the ER for a wrist fracture which she sustained after a fall- again unable to specify circumstances. On evaluation she is found to have sinus bradycardia with HR 42-59 bpm. She den ies any dizziness except when attempting to walk. BP is maintained with SBP ranging 150-160 bpm There are no focal deficits concerning for stroke Admit to CSU with continuous telemetry monitoring for bradycardia. If Hr less than 40, may be an indication for PPM placement- will consult cardiology in that case Review of home medications does not reveal any medications contributing to bradycardia TSH WNL check Ct head , carotid doppler and echocardiogram. (2) Rhabdomyolysis: Hold statins IVF NS @ 50 cc/hr check CK with am labs monitor kidney function (3) Bradycardia: appears to be relatively new. Review of prior HR shows HR range 70s except in July 2022. (4) Rib fracture: right 7th rib fracture as seen on CXR denies any current pain Saturating 98% on RA Plan Recently treated for UTI, denies any current urinary complaints DVT ppx: SCD for now, await CT head DNR//DNI , but willing for PPM if needed Attestations Medical Necessity Statement*: less than 2 midnight stay is anticipated at this time Coding Level of Care Code Acute Code for [facility] Diagnoses Syncope R55 Rhabdomyolysis M62.82 Bradycardia R00.1 Rib fracture S22.39XA
[2022-09-11 18:33] LABS: Troponin 5 6HR 62.49 ng/L (0-10); Troponin 5 6HR Delta -4.51 ng/L (0-12)
[2022-09-11] MEDS: sodium chloride 0.9% 1,000 ML 50 ML IV (18:47)
[2022-09-12] VITALS (29 sets, daily range): BP systolic 116–170; BP diastolic 45–84; PULSE 33–64; RESP 13–21; TEMP 36.1–36.8; O2SAT 92–100
[2022-09-12 03:33] LABS: Basophils % 0.4 %; Eosinophils % 0.4 %; Hemoglobin 11.2 g/dL (11.5-15.3); Lymphocytes # 1.3 10^3/uL (0.8-4.8); Lymphocytes % 18.2 %; Mean Corpuscular Hemoglobin 31.5 pg (28.0-34.0); Mean Corpuscular Volume 98.6 fl (81-99); Mean Platelet Volume 11.2 fL (7.4-10.4); Monocytes # 0.5 10^3/uL (0.2-0.9); Monocytes % 7.3 %; Neutrophils # 5.04 10^3/uL (1.8-7.7); Neutrophils % 73.3 %; Nucleated Red Blood Cells % 0 %; Platelet Count 155 10^3/cmm (130-400); Red Blood Count 3.55 10^6/uL (4.1-5.3); Red Cell Distribution Width 14.4 % (12.1-15.1); White Blood Count 6.9 10^3/uL (4.0-10.0)
[2022-09-12 03:57] LABS: Alanine Aminotransferase 25 U/L (0-33); Albumin Level 3.1 g/dL (3.5-5.2); Alkaline Phosphatase 59 U/L (35-105); Anion Gap 17.6 (5-19); Aspartate Amino Transferase 35 U/L (0-32); Blood Urea Nitrogen 27 mg/dL (8-23); Calcium 8.3 mg/dL (8.5-10.5); Carbon Dioxide 21 mmol/L (22-29); Chloride 111 mmol/L (98-107); Globulin 1.9 g/dL (1.3-4.6); Glucose 70 mg/dL (65-115); Osmolality Calculated 306 mOsm/kg (285-295); Potassium 3.6 mmol/L (3.5-5.1); Sodium 146 mmol/L (136-145); Total Bilirubin 0.5 mg/dL (0.15-1.2)
[2022-09-12 04:42] LABS: Creatine Phosphokinase 372 U/L (26-192)
[2022-09-12] MEDS: levothyroxine 175 mcg Tablet PO (09:59)
[2022-09-12] MEDS: pantoprazole DR 40 mg Tablet PO (09:59)
[2022-09-12] MEDS: amlodipine 10 mg Tablet PO (09:59)
--- NOTE | 2022-09-12 12:23 | P.CONIM_ITS ---
Providers/Reason For Consult Consulting Physician/Specialty*: HECTOR Mancilla MD/cardiology Reason for Consult*: Patient is diagnosed with bradycardia syncope Requesting Physician: Dr. Sykes Attending Physician: Sumanth Sykes DO Primary Care Provider: STEFFANY White History of Present Illness History of Present Illness Amy Davies is a 86 year old female Review of Systems Narrative: This is an 86-year-old white female with a history of hypertension, dyslipidemia, is admitted to the hospital through the emergency room where she presented with an episode of passing out spell. She was found to be hypertensive and also with a slow heart rate. Cardiology consult is requested for further cardiac evaluation recommendations. This patient apparently was found on the floor of her bathroom, yesterday morning by her family. Patient y is not able to recall exactly as to what happened. She found herself on the floor trying to clean up the urine. According to the emergency room records, she felt dizzy and lightheaded in the bathroom. In order to avoid a fall, she gradually slid into the bathroom floor. She sustained some contusion of the left knee. There is no documentation of loss of consciousness. She denies any chest pain or palpitation, prior to this event or following this event. She has no history for any cardiac arrhythmia. She has no history for coronary artery disease, myocardial infarction or congestive heart failure. She has no fever, chills or cough. No recent medication changes. She has a history of hypertension for many years. Also history of hypothyroidism and dyslipidemia. She has been taking the medications as prescribed. No significant family history for atherosclerotic heart diseas. She smokes 2 or 3 cigarettes a day. She has been smoking like this for the last more than 40 years. Medications/Allergies Home Medications Medication Instructions Recorded Confirmed Last Taken Type cholecalciferol (vitamin D3) 1,250 50,000 unit PO . and 02/02/22 09/11/22 Unknown Rx mcg (50,000 unit) tablet monthly #2 tabs naproxen 375 mg tablet,delayed 375 mg PO Q12H PRN pain #20 tabs 07/30/22 09/11/22 Unknown Rx release amlodipine 10 mg tablet (Norvasc) 10 mg PO DAILY #30 tabs 08/11/22 09/11/22 Unknown Rx atorvastatin 10 mg tablet 10 mg PO DAILY #30 tabs 08/11/22 09/11/22 Unknown Rx lisinopril 40 mg tablet 40 mg PO DAILY #30 tabs 08/11/22 09/11/22 Unknown Rx levothyroxine 175 mcg tablet 175 mcg PO DAILY #90 tabs 08/15/22 09/11/22 Unknown Rx Allergies Allergy/AdvReac Type Severity Reaction Status Date / Time No Known Allergies Allergy Verified 09/11/22 11:14 Current Medications Generic Name Dose Route Start Last Admin Trade Name Randall PRJarrell Reason Stop Dose Admin Amlodipine Besylate 10 mg 09/12/22 09:00 09/12/22 09:59 Amlodipine 10 Mg Tablet PO 10 mg DAILY DAMI Administration Sodium Chloride 1,000 mls @ 50 mls/hr 09/11/22 18:30 09/11/22 18:47 Sodium Chloride 0.9% IV 50 mls/hr .Q20H DAMI Administration Levothyroxine Sodium 175 mcg 09/12/22 09:00 09/12/22 09:59 Levothyroxine 175 Mcg Tablet PO 175 mcg DAILY DAMI Administration Pantoprazole Sodium 40 mg 09/12/22 09:00 09/12/22 09:[address] 40 Mg Tablet PO 40 mg DAILY DAMI Administration PFSH Acute PFSH: Medical History Adult onset hypothyroidism Basal cell carcinoma (BCC) Cigarette smoker Essential (primary) hypertension Mixed hyperlipidemia Vitamin D insufficiency Surgical History History of cataract surgery History of hip surgery right Family History Other CHF (congestive heart failure) Cancer Diabetes Social History Smoking and tobacco status: current every day smoker Second hand smoke exposure: Yes Smoking risk assessment/counseling performed?: Yes Alcohol intake: never Desire information about alcohol rehabilitation?: No Counseling given: No Substance/Drug Use: never Desire information about substance/drug rehabilitation?: No Counseling given: No Adopted: No Caregiver/support person: No Lives independently: Yes Marital status: Single Number of children: 2 Current occupational status: retired Do you think of yourself as: Straight/Heterosexual Current gender identity: Female Vitals/I&O/Wt Last Vital Signs Temp 96.9 F L 09/12/22 10:00 Pulse 54 L 09/12/22 12:00 Resp 15 09/12/22 12:00 BP 162/61 09/12/22 12:00 Pulse Ox 97 09/12/22 12:00 O2 Del Method Room Air 09/12/22 12:00 09/11/22 09/12/22 09/12/22 22:59 06:59 14:59 Intake Total 1450 / 1450 110 / 1560 Output Total 0 / 0 900 / 900 Balance 1450 / 1450 -790 / 660 Weight last 48 hrs Weight 150 lb Physical Exam Narrative: GENERAL: The patient is alert and oriented times three. Not in any acute distress. HEENT: No significant pallor, icterus or lymphadenopathy.Oral cavity: There are no mucous membrane lesions. NECK: Trachea appears to be central. No masses noted. No JVD or thyromegaly appreciated. RESPIRATORY: Chest is symmetrical. No intercostals muscle retraction or any accessory muscle activation. There is no chest wall tenderness. Breath sounds are heard bilaterally. No rales or rhonchi heard. No evidence of any consolidation. BREASTS: Deferred. HEART: The heart sounds are normal. No S3 or S4. Short systolic murmur in the left border. No diastolic murmurs. No pericardial rub ABDOMEN: No vessel pulsations or distention. No tenderness. No organomegaly ap preciated. Bowel sounds are normally heard. : Deferred. RECTAL: Deferred. LYMPHATIC: No lymphadenopathy noted in the neck. EXTREMITIES: No edema or cyanosis. No clubbing. MUSCULOSKELETAL: No acute joint deformities or swelling SKIN: There are no significant rashes or ecchymosis NEUROPSYCHIATRIC: The patient is alert and oriented x3. Appears to be in a good mood. No tremors or rigidity noted. Data 09/12/22 02:55 09/12/22 02:55 A&P Assessment and plan (1) Bradycardia: Of the bradycardia is not clear. Patient is not on any AV dheeraj blocking agents. Possibility of sinus dheeraj dysfunction causing this is a strong consideration. She need to be closely monitored. If the patient has symptomatic bradycardia, she may require a permanent pacemaker to further manage her condition (2) Mixed hyperlipidemia: May continue on the current medications. (3) Accelerated hypertension: Diabetes medications need to be optimized. Currently the blood pressures are stage II. (4) Adult onset hypothyroidism: Clinically euthyroid. May continue on the current medications. (5) Rhabdomyolysis: May continue on the IV hydration and close monitoring of electrolytes Plan I may go ahead and do an echocardiogram to evaluate LV function and rule out any other pathology. Based on the patient's clinical progress the results of the above, further recommendations will be made. Thank you for the opportunity to this patient recommendation Consult Attestations Medical Necessity Statement: Patient requires continued hospital stay for close monitoring and further management Coding Level of Care Code 75377 Diagnoses Bradycardia R00.1 Mixed hyperlipidemia E78.2 Accelerated hypertension I10 Adult onset hypothyroidism E03.8 Rhabdomyolysis M62.82
[2022-09-12 13:40] LABS: Urine Appearance Clear (CLEAR); Urine Color Yellow (Yellow); pH Urine 5 (5-7)
[2022-09-12 13:41] LABS: Add Urine Culture? No; Add Urine Microscopic? YES; Bacteria Urine TRACE /hpf; Bilirubin Urine Neg (Negative); Blood Urine 2+ (Negative); Glucose Urine UA Norm (Normal); Ketones Urine 1+ (Negative); Leukocyte Esterase Urine Negative (Negative); Nitrate Urine Negative (Negative); Protein Urine Neg (Negative); RBC Urine 0-4 /hpf (0-2); Squamous Epithelial Cell Urine RARE /hpf (0-5); Urobilinogen Urine Norm (Negative)
[2022-09-12] MEDS: sodium chloride 0.9% 1,000 ML 50 ML IV (14:21)
--- NOTE | 2022-09-12 15:45 | PM.PN ---
Subjective Subjective: Patient admitted with syncope. Patient is difficult to get a clear answer from however patient states that she ended up on the floor and that she did fall. She is found to be in bradycardia symptomatic with no AV dheeraj blocking agents. Cardiology has been consulted for possible permanent pacemaker. Patient denies any current symptoms of chest pain shortness of breath of course she is only gotten out of bed to a commode. Vitals/I&O/Wt Last Vital Signs Temp 96.9 F L 09/12/22 10:00 Pulse 54 L 09/12/22 12:00 Resp 15 09/12/22 12:00 BP 131/63 09/12/22 13:00 Pulse Ox 97 09/12/22 12:00 O2 Del Method Room Air 09/12/22 12:00 09/12/22 09/12/22 09/12/22 06:59 14:59 22:59 Intake Total 110 / 1560 978.333 / 978.333 Output Total 900 / 900 Balance -790 / 660 978.333 / 978.333 Weight last 48 hrs Weight 68.039 kg Physical Exam Narrative: Elderly frail female. No acute distress. Heart slow, IR regular systolic murmur auscultated Lungs: Clear to auscultation without wheezes rales or rhonchi Abdomen soft nontender nondistended positive bowel sounds no hepatosplenomegaly Extremities: No clubbing cyanosis or edema Data 09/12/22 02:55 09/12/22 02:55 A&P Assessment and plan (1) Syncope: With slow A-fib. Symptomatic Consult cardiology. Appreciate consult cardiology ordered echocardiogram. (2) Rib fracture: Pain management. (3) Rhabdomyolysis: From 11/12 to 03[birth year]18/1971 today. (4) Generalized weakness: Also note total protein at 5 and albumin 3.1 patient probably has protein calorie malnutrition (5) Bradycardia: Diagnosis is slow atrial fibrillation (6) Cigarette smoker: Currently smokes 3 to 4 cigarettes a day. (7) Essential (primary) hypertension: On admissions patient's blood pressure was 172/76 this was diagnosed as accelerated hypertension. Now she is 134/66 Plan Await cardiology recommendations if needed permanent pacemaker. Attestations Medical Necessity Statement*: Patient was symptomatic bradycardia unable to care for self at home continued close cardiac monitoring necessary to ensure no further life-threatening arrhythmia. Coding Level of Care Code Acute Code for [facility] Diagnoses Syncope R55 Rib fracture S22.39XA Rhabdomyolysis M62.82 Generalized weakness R53.1 Bradycardia R00.1 Cigarette smoker F17.210 Essential (primary) hypertension I10
[2022-09-13] VITALS (27 sets, daily range): BP systolic 113–167; BP diastolic 56–101; PULSE 44–80; RESP 16–23; TEMP 36.4–36.7; O2SAT 89–98
[2022-09-13] MEDS: pantoprazole DR 40 mg Tablet PO (08:22)
[2022-09-13] MEDS: amlodipine 10 mg Tablet PO (08:22)
[2022-09-13] MEDS: levothyroxine 175 mcg Tablet PO (08:22)
[2022-09-13] MEDS: sodium chloride 0.9% 1,000 ML 200 ML IV ×2 (09:46→18:34)
--- NOTE | 2022-09-13 13:41 | PM.PN ---
Subjective Subjective: The patient seems to be unsteady in her gait. Denies any chest pain or palpitations. The heart rate is in the 50s most of the times. As she gets up and move around, the heart rate goes up into the 60s and 70s. Through the night, the rate has been staying in the 40s. No prolonged pauses. No recurrence of syncopal episodes. Medications: Medication Review Details: Current Medications Amlodipine Besylate (Amlodipine 10 Mg Tablet) 10 mg PO DAILY [facility] Last Admin: 09/13/22 08:22 Dose: 10 mg Sodium Chloride (Sodium Chloride 0.9%) 1,000 mls @ 200 mls/hr IV .Q5H [facility] Stop: 09/13/22 14:44 Last Admin: 09/13/22 09:46 Dose: 200 mls/hr Levothyroxine Sodium (Levothyroxine 175 Mcg Tablet) 175 mcg PO DAILY [facility] Last Admin: 09/13/22 08:22 Dose: 175 mcg Ondansetron HCl (Ondansetron 2 Mg/Ml Sdv 2 Ml) 4 mg IVP Q8H PRN PRN Reason: vomiting, or N/V if npo Pantoprazole Sodium (Pantoprazole Dr 40 Mg Tablet) 40 mg PO DAILY [facility] Last Admin: 09/13/22 08:22 Dose: 40 mg Vitals/I&O/Wt Last Vital Signs Temp 98.1 F 09/13/22 00:00 Pulse 65 09/13/22 13:00 Resp 23 H 09/13/22 13:00 BP 143/67 09/13/22 13:00 Pulse Ox 97 09/13/22 13:00 O2 Del Method Room Air 09/12/22 12:00 09/12/22 09/13/22 09/13/22 22:59 06:59 14:59 Intake Total 480 / 1458.333 240 / 1819.204 7570.833 / 1310.833 Output Total 750 / 750 500 / 1250 Balance -270 / 708.333 -260 / 960.428 9006.833 / 1310.833 Physical Exam Narrative: GENERAL: The patient is alert and oriented times three. Not in any acute distress. HEENT: No significant pallor, icterus or lymphadenopathy.Oral cavity: There are no mucous membrane lesions. NECK: Trachea appears to be central. No masses noted. No JVD or thyromegaly appreciated. RESPIRATORY: Chest is symmetrical. No intercostals muscle retraction or any accessory muscle activation. There is no chest wall tenderness. Breath sounds are heard bilaterally. No rales or rhonchi heard. No evidence of any consolidation. BREASTS: Deferred. HEART: The heart sounds are normal. No S3 or S4. Short systolic murmur at the lower sternal border. No pericardial rub ABDOMEN: No vessel pulsations or distention. No tenderness. No organomegaly appreciated. Bowel sounds are normally heard. : Deferred. RECTAL: Deferred. LYMPHATIC: No lymphadenopathy noted in the neck. EXTREMITIES: No edema or cyanosis. No clubbing. MUSCULOSKELETAL: No acute joint deformities or swelling SKIN: There are no significant rashes or ecchymosis NEUROPSYCHIATRIC: The patient is alert and oriented x3. No focal motor deficits. She seems to have an unsteady gait Data 09/12/22 02:55 09/12/22 02:55 Other data: Echocardiogram done on 09/11/2022 LV systolic function is normal with EF of 55 to 60%. ?Left atrial dilation ?Mild mitral regurgitation ?Mild aortic regurgitation ?Trace tricuspid regurgitation ?Mild pulmonic regurgitation ?No comparison studies are available. A&P Assessment and plan (1) Bradycardia: Patient has intermittent sinus bradycardia. At this point it is not very clear as to what exactly caused her passing out spell. Because of her dementia and unsteady gait, it might be difficult to say. (2) Mixed hyperlipidemia: May continue on the current medications. (3) Accelerated hypertension: Blood pressure medications need to be optimized. Currently the blood pressures are stage II. (4) Adult onset hypothyroidism: Clinically euthyroid. May continue on the current medications. (5) Rhabdomyolysis: May continue on the IV hydration and close monitoring of electrolytes Plan I had a long discussion with the family, including her brother and 2 daughters. Since it is not convincing that the sinus bradycardia might have caused the passing out spell it was thought to be appropriate to place her on an event monitor and watch the response. The patient's family would like her to go to a rehab facility, where she can be closely monitored and participate in a rehab program. If the patient continues to remain stable, from a cardiac standpoint, she may be discharged to such a facility. Attestations Medical Necessity Statement*: Disposition as per the primary Coding Level of Care Code 98640 Diagnoses Bradycardia R00.1 Mixed hyperlipidemia E78.2 Accelerated hypertension I10 Adult onset hypothyroidism E03.8 Rhabdomyolysis M62.82
[2022-09-13] MEDS: acetaminophen 325 mg Tablet 650 MG PO (17:09)
--- NOTE | 2022-09-13 19:02 | PM.PN ---
Subjective Subjective: Patient admitted with syncope. Patient is difficult to get a clear answer from however patient states that she ended up on the floor and that she did fall. She is found to be in bradycardia symptomatic with no AV dheeraj blocking agents. Cardiology has been consulted for possible permanent pacemaker. Patient denies any current symptoms of chest pain shortness of breath of course she is only gotten out of bed to a commode. Vitals/I&O/Wt Last Vital Signs Temp 98.1 F 09/13/22 00:00 Pulse 80 09/13/22 17:16 Resp 21 H 09/13/22 16:00 BP 167/66 09/13/22 17:16 Pulse Ox 97 09/13/22 16:00 O2 Del Method Room Air 09/13/22 16:00 09/13/22 09/13/22 09/13/22 06:59 14:59 22:59 Intake Total 240 / 7196.625 2075.833 / 1471.932 1916 / 2550.833 Output Total 500 / 1250 500 / 500 Balance -260 / 470.698 4742.833 / 1310.833 740 / 2050.833 Physical Exam Narrative: Elderly frail female. No acute distress. Heart slow, IR regular systolic murmur auscultated Lungs: Clear to auscultation without wheezes rales or rhonchi Abdomen soft nontender nondistended positive bowel sounds no hepatosplenomegaly Extremities: No clubbing cyanosis or edema Data 09/12/22 02:55 09/12/22 02:55 A&P Assessment and plan (1) Bradycardia: With cardiology. Dr. Mancilla does not believe her bradycardia caused her syncopal episode. Her bradycardia has resolved despite no particular treatment. He recommended orthostatic vital signs and these are positive she was given a liter of fluids and still continues to be positive we will continue fluids overnight. (2) Mixed hyperlipidemia: Continue home medications (3) Accelerated hypertension: While technically patient has hypertension and could be optimized I would adjust carefully due to bradycardia and symptoms. (4) Adult onset hypothyroidism: Continue replacement (5) Rhabdomyolysis: Continue IV hydration (6) Syncope: With slow A-fib. Symptomatic As above (7) Rib fracture: Pain management. (8) Generalized weakness: Also note total protein at 5 and albumin 3.1 patient probably has protein calorie malnutrition (9) Cigarette smoker: Currently smokes 3 to 4 cigarettes a day. (10) Essential (primary) hypertension: As above Plan Current plan is to resuscitate with IV fluids and recheck orthostatics. If these remain with a positive I would consider a new neurologic etiology of syncope and further work-up as an outpatient. Attestations Medical Necessity Statement*: Patient with symptomatic bradycardia and orthostatic hypotension that so far has been resistant to treatment patient requires further treatment. Coding Level of Care Code Acute Code for [facility] Fwd Diagnoses Bradycardia R00.1 Mixed hyperlipidemia E78.2 Accelerated hypertension I10 Adult onset hypothyroidism E03.8 Rhabdomyolysis M62.82 Syncope R55 Rib fracture S22.39XA Generalized weakness R53.1 Cigarette smoker F17.210 Essential (primary) hypertension I10
[2022-09-14] VITALS (16 sets, daily range): BP systolic 126–172; BP diastolic 62–93; PULSE 48–88; RESP 14–24; TEMP 36.6; O2SAT 93–100
[2022-09-14] MEDS: sodium chloride 0.9% 1,000 ML 200 ML IV ×2 (00:22→05:40)
[2022-09-14] MEDS: pantoprazole DR 40 mg Tablet PO (08:22)
[2022-09-14] MEDS: levothyroxine 175 mcg Tablet PO (08:22)
[2022-09-14] MEDS: amlodipine 10 mg Tablet PO (08:22)
--- NOTE | 2022-09-14 09:28 | P.DS_ITS ---
Discharge Providers Date of Admission: 09/12/22 18:31 Date of Discharge: September 14, 2022 Attending Provider at Admission: Anne Pastor MD Attending Provider at Discharge: Sumanth Sykes, DO Consults: Cardiology?Dr. Mancilla Primary Care Provider: STEFFANY White Diagnoses at Discharge Discharge Diagnosis (1) Bradycardia: Status: Acute (2) Mixed hyperlipidemia: Status: Chronic (3) Accelerated hypertension: Status: Inactive (4) Adult onset hypothyroidism: Status: Chronic (5) Rhabdomyolysis: Status: Acute (6) Syncope: Status: Acute (7) Rib fracture: Status: Acute (8) Generalized weakness: Status: Acute (9) Cigarette smoker: Status: Chronic (10) Essential (primary) hypertension: Status: Chronic Reason for Visit Reason for Visit: fall, weakness Brief History: Patient experienced a syncopal episode and was found to be significantly bradycardic in the 30s and 40s. Hospital Course Hospital Course Patient was admitted for her syncopal episode and noted bradycardia. She was not on any AV dheeraj blockers. It was suspected that she would require a pacemaker. However after observation her heart rate started to increase into the 50s and 60s. Orthostatics were obtained and they were markedly abnormal. Her laboratory studies showed a protein calorie malnutrition state. She was given IV hydration of about 3 L over 2 days. On the day of discharge 10-05 she was no longer orthostatic. However at rest and laying down she is hypertensive. Dr. Mancilla evaluated the patient and determined that a pacemaker was not needed at this time. The recommendation is that we tolerate a higher blood pressure and her in order to the likelihood of hypotension while upright and active. Thus we will continue her Norvasc dose and I will cut her lisinopril dose in half to 20 mg a day. Current vital signs are 166/72 and heart rate is in the 80s. She is in atrial fib controlled rate. With the recent fall coagulation is not considered at this time. Patient will be discharged with home health care for a nurse to check vital signs discussed with her her fluid and food intake. I had a long conversation with the patient that she needs more protein in her diet. We talked specifics about what she could make herself in the morning and that her daughter who helps with supplying her food would increase the protein intake as well. She was also advised to increase her fluid intake. Physical Exam Narrative: Elderly frail female. No acute distress. Heart irregularly irregular with a normal heart rate. She does have a systolic murmur auscultated. Lungs: Clear to auscultation without wheezes rales or rhonchi Abdomen soft nontender nondistended positive bowel sounds no hepatosplenomegaly Extremities: No clubbing cyanosis or edema Discharge Data Studies Completed and Pending Completed Studies During Hospitalization Category Date Time Status CT head wo con* [id number] Routine Cat Scan 09/11/22 18:21 Completed XR chest 1V portable [id number] Stat Exams 09/11/22 11:24 Completed CV carotid duplex BI* [id number] Routine Ultrasound 09/11/22 18:18 Completed CV. echo complete* [id number] Routine Ultrasound 09/11/22 18:18 Completed Radiology Impressions Chest X-Ray 09/11/22 11:24 IMPRESSION: 1. Posterior right 7th rib fracture. 2. Stable cardiomegaly. Carotid Doppler Study 09/11/22 18:18 IMPRESSION: 1. No hemodynamically significant stenosis. 2. There is 50-69% stenosis in the left distal common carotid artery at the bifurcation. REFERENCES: SRU CRITERIA. The degree of internal carotid artery stenosis is based on criteria defined by the Society of Radiologists in Ultrasound (SRU). Normal is no stenosis. Mild is less than 50% stenosis. Moderate is 50-69% stenosis. Severe is greater than 69% stenosis to near occlusion. Near occlusion is a markedly narrowed lumen. Total occlusion is no detectable patent lumen. Head CT 09/11/22 18:21 IMPRESSION: 1. No acute intracranial abnormality. 2. Chronic right sphenoid sinusitis changes. 3. There is a 1 cm left frontal convexity calcified meningioma present. Laboratory Results WBC 6.9 10^3/uL (4.0-10.0) 09/12/22 02:55 RBC 3.55 10^6/uL (4.1-5.3) L 09/12/22 02:55 Hgb 11.2 g/dL (11.5-15.3) L 09/12/22 02:55 Hct 35.0 % (37.0-47.0) L 09/12/22 02:55 MCV 98.6 fl (81-99) 09/12/22 02:55 MCH 31.5 pg (28.0-34.0) 09/12/22 02:55 MCHC 32.0 g/dL (30.0-36.0) D 09/12/22 02:55 RDW 14.4 % (12.1-15.1) 09/12/22 02:55 Plt Count 155 10^3/cmm (130-400) 09/12/22 02:55 MPV 11.2 fL (7.4-10.4) H 09/12/22 02:55 Neut % (Auto) 73.3 % 09/12/22 02:55 Lymph % (Auto) 18.2 % 09/12/22 02:55 [place] % (Auto) 7.3 % 09/12/22 02:55 Eos % (Auto) 0.4 % 09/12/22 02:55 Baso % (Auto) 0.4 % 09/12/22 02:55 Neut # (Auto) 5.04 10^3/uL (1.8-7.7) 09/12/22 02:55 Lymph # (Auto) 1.3 10^3/uL (0.8-4.8) 09/12/22 02:55 [place] # (Auto) 0.5 10^3/uL (0.2-0.9) 09/12/22 02:55 Eos # (Auto) 0.0 10^3/uL (0.0-0.8) 09/12/22 02:55 Baso # (Auto) 0.0 10^3/uL (0.0-0.1) 09/12/22 02:55 Nucleated RBC % (auto) 0 % 09/12/22 02:55 Nucleated RBCs # 0.0 /100WBC 09/12/22 02:55 Sodium 146 mmol/L (136-145) H 09/12/22 02:55 Potassium 3.6 mmol/L (3.5-5.1) 09/12/22 02:55 Chloride 111 mmol/L (98-107) H 09/12/22 02:55 Carbon Dioxide 21 mmol/L (22-29) L 09/12/22 02:55 Anion Gap 17.6 (5-19) 09/12/22 02:55 BUN 27 mg/dL (8-23) H 09/12/22 02:55 Creatinine 1.1 mg/dL (0.5-0.9) H 09/12/22 02:55 GFR Calculation Not Reportable 09/12/22 02:55 Glucose 70 mg/dL (65-115) 09/12/22 02:55 Calculated Osmolality 306 mOsm/kg (285-295) H 09/12/22 02:55 Calcium 8.3 mg/dL (8.5-10.5) L 09/12/22 02:55 Magnesium 2.1 mg/dL (1.7-2.3) 09/11/22 11:42 Total Bilirubin 0.5 mg/dL (0.15-1.2) 09/12/22 02:55 AST 35 U/L (0-32) H 09/12/22 02:55 ALT 25 U/L (0-33) 09/12/22 02:55 Alkaline Phosphatase 59 U/L (35-105) 09/12/22 02:55 Creatine Kinase 372 U/L (26-192) H* 09/12/22 02:55 Troponin T Baseline 67 ng/L (0-10) H 09/11/22 11:42 Troponin T 120 Minute 61.06 ng/L (0-10) H 09/11/22 13:40 Delta Troponin T -5.94 ABS# (0-10) L 09/11/22 13:40 Troponin T Hi Sens 6Hr 62.49 ng/L (0-10) H 09/11/22 17:55 Troponin T Hi Sens 6Hr Delta -4.51 ng/L (0-12) L 09/11/22 17:55 Total Protein 5.0 g/dL (6.6-8.7) L 09/12/22 02:55 Albumin 3.1 g/dL (3.5-5.2) L 09/12/22 02:55 Globulin 1.9 g/dL (1.3-4.6) 09/12/22 02:55 TSH 1.48 uIU/mL (0.27-4.20) 09/11/22 11:42 Urine Color Yellow (Yellow) 09/12/22 13:10 Urine Appearance Clear (CLEAR) 09/12/22 13:10 Urine pH 5 (5-7) 09/12/22 13:10 Ur Specific [place] 1.020 (1.005-1.030) 09/12/22 13:10 Urine Protein Neg (Negative) 09/12/22 13:10 Urine Glucose (UA) Norm (Normal) 09/12/22 13:10 Urine Ketones 1+ (Negative) H 09/12/22 13:10 Urine Blood 2+ (Negative) H 09/12/22 13:10 Urine Nitrate Negative (Negative) 09/12/22 13:10 Urine Bilirubin Neg (Negative) 09/12/22 13:10 Urine Urobilinogen Norm mg/dL (Negative) 09/12/22 13:10 Ur Leukocyte Esterase Negative (Negative) 09/12/22 13:10 Urine RBC 0-4 /hpf (0-2) H 09/12/22 13:10 Urine WBC None /hpf (0-5) 09/12/22 13:10 Ur Squamous Epith Cells Rare /hpf (0-5) 09/12/22 13:10 Amorphous Sediment Not Reportable 09/12/22 13:10 Urine Bacteria Trace /hpf (NONE) 09/12/22 13:10 Vitals Last Vital Signs Temp 97.9 F 09/14/22 04:00 Pulse 50 L 09/14/22 08:00 Resp 17 09/14/22 08:00 BP 166/72 09/14/22 08:34 Pulse Ox 97 09/14/22 08:00 O2 Del Method Room Air 09/13/22 16:00 Discharge Plan Discharge Patient Disposition: Home Condition: Stable Prescriptions: Continued cholecalciferol (vitamin D3) 1,250 mcg (50,000 unit) tablet 50,000 unit PO .1st and 16th monthly Qty: 2 5RF amlodipine [Norvasc] 10 mg tablet 10 mg PO DAILY Qty: 30 5RF atorvastatin 10 mg tablet 10 mg PO DAILY Qty: 30 5RF levothyroxine 175 mcg tablet 175 mcg PO DAILY Qty: 90 0RF Rx Instructions: dose increase. Lab needed 11 weeks naproxen 375 mg tablet,delayed release (DR/EC) 375 mg PO Q12H PRN (Reason: pain) Qty: 20 0RF Changed lisinopril 40 mg tablet 20 mg PO DAILY Qty: 30 5RF Discharge Orders: Discharge Order (Routine); Ordered 09/14/22 Ordered By: Sumanth Sykes Referrals: Marilou Pastrana, [employer]ICIAN-[employer] [Primary Care Provider] - 09/20/22 11:40 am Discharge Diet: Regular Discharge Activity: Increase activity as tolerated Patient Instructions: High Protein / High Calorie Diet (DC), Rib Fracture (DC), Syncope (DC), Fall Prevention for Older Adults (DC), Bradycardia (DC), Fall Prevention (DC), Opioid Safety Activity Restrictions/Additional Instructions: Work-up at the hospital has shown that you have malnutrition both protein and just overall calorie malnutrition. Please increase your food intake. Also you need to drastically increase your fluid intake. You are found to have a deficit in your fluid balance. If you are experiencing further weakness and dizziness please see your physician for a neurologic work-up Lastly it is advised that you would consider short-term half-way home placement for 2 to 3 weeks to get stronger if you fail home health care. Discharge Attestations Time Spent in Discharge Care*: greater than 30 min Quality Metrics Clinical Quality Measures [ No reported AMI, CVA or VTE this stay] Coding Level of Care Code 67170 Diagnoses Bradycardia R00.1 Mixed hyperlipidemia E78.2 Accelerated hypertension I10 Adult onset hypothyroidism E03.8 Rhabdomyolysis M62.82 Syncope R55 Rib fracture S22.39XA Generalized weakness R53.1 Cigarette smoker F17.210 Essential (primary) hypertension I10
--- NOTE | 2022-09-14 14:01 | PC.NURSE ---
Patient received discharge orders. All IVs removed, all prescriptions sent to preferred pharmacy. Education given to patient who verbalized understanding. All patient belongings sent with patient. Patient taken via w/c to main exit with staff at 1359.
== END 2022-09-14 13:59 | disposition home health service (06) | DRG 309 ==
LOC: ER 13:11 → ICU 13:38
PROVIDERS: Admitting Provider Student in an Organized Health Care Education/Training Program; Emergency Provider Emergency Medicine; PCP Nurse Practitioner; Visit Provider Internal Medicine
DX: I48.91 Unspecified atrial fibrillation (principal); E46 Unspecified protein-calorie malnutrition; S22.31XA Fracture of one rib, right side, initial encounter for closed fracture; M62.82 Rhabdomyolysis; W18.30XA Fall on same level, unspecified, initial encounter; E78.2 Mixed hyperlipidemia; I10 Essential (primary) hypertension; E03.9 Hypothyroidism, unspecified; F17.210 Nicotine dependence, cigarettes, uncomplicated; Z68.22 Body mass index [BMI] 22.0-22.9, adult; Z87.440 Personal history of urinary (tract) infections; Z66 Do not resuscitate; E55.9 Vitamin D deficiency, unspecified; I95.1 Orthostatic hypotension
CPT/HCPCS: 36415; 70450; 71045; 80053; 81001; 82550; 83735; 84443; 84484; 85025; 93005; 93306; 93880; 97110; 97162; 97165; 99285; G0378; J7030

== ENCOUNTER → 2022-10-10 13:52 | Outpatient (BNVA) | payer MEDICARE, SELFPAY | PROVIDERS: PCP Nurse Practitioner; Visit Provider Nurse Practitioner | DX: I10 Essential (primary) hypertension (principal); R53.1 Weakness | CPT/HCPCS: 80053; 85025 ==

== ENCOUNTER 2022-10-12 12:33 | Outpatient (CLI) | payer MEDICARE, SELFPAY ==
--- NOTE | 2022-10-12 13:00 | CT_ITS ---
WS: [id number] CT ABDOMEN AND PELVIS NONCONTRAST HISTORY: R63.4 - Abnormal weight loss TECHNIQUE: Imaging performed through the abdomen and pelvis. Coronal and sagittal reformats are submi tted. All CT scans at [facility] use at least one of these dose optimization techniques: auto mated exposure control; mA and/or kV adjustment per patient size (includes targeted exams where dose is matched to clinical indication); or iterative reconstruction. DLP: 273.54 mGy.cm COMPARISON: None available. Lower thorax: Lung bases are clear. Moderate cardiomegaly. Heavy vascular calcifications in the coron chyna arteries. Liver: Normal size liver. No mass or bile duct dilatation. Gallbladder: Contracted gallbladder. No adjacent inflammation. Pancreas: Normal size and attenuation. Normal pancreatic duct. No pancreatitis or mass. Spleen: Normal. Adrenal glands: Normal. No mass. Right kidney: Normal size kidney with no mass or hydronephrosis. Left kidney: Marked atrophy. No obstruction. Aorta: Moderate atherosclerotic plaque with ectasia and tortuosity. Very mild aneurysmal dilatation n ear the bifurcation. Bilobed appearance of the distal aorta may be from remote dissection or plaque w ithin thrombus. Calcified plaque extends into the iliac arteries. Patient has extensive mesenteric ar terial calcifications. No free fluid, intraperitoneal air or significant lymphadenopathy. GI tract: No obstruction is identified. There is mild diffuse constipation and retained fecal materia l. Increasing fecal material at the rectum. No obstruction. The appendix is not definitely visualized . Abdominal wall: Negative. No hernia. Pelvis: Atrophic uterus as expected. No free fluid or adenopathy. Osseous structures: Prior RIGHT hip arthroplasty. Increase in lumbar lordosis. T12 anterior wedging b y 20%. Mild anterior wedging of T11 by 10%. IMPRESSION: 1. No acute abdominal or pelvic abnormalities are noted on this unenhanced exam. 2. Moderate cardiomegaly. 3. Extensive atherosclerotic disease within the abdominal aorta and mesenteric arteries. Patient is at risk for ischemia. 4. No free fluid or free air. 5. Marked atrophy LEFT kidney. No obstruction.
[2022-10-12] MEDS: iohexol 350 mg/mL 500 mL Btl (per mL) PO (13:54)
== END 2022-10-12 12:34 | disposition home or self-care (01) ==
PROVIDERS: PCP Nurse Practitioner; Visit Provider Nurse Practitioner
DX: R63.4 Abnormal weight loss (principal); R53.1 Weakness; I51.7 Cardiomegaly; I70.0 Atherosclerosis of aorta; K55.1 Chronic vascular disorders of intestine; N26.1 Atrophy of kidney (terminal)
CPT/HCPCS: 74176; Q9967

== ENCOUNTER 2022-10-27 10:44 | Inpatient (IN) | payer MEDICARE, SELFPAY ==
[2022-10-27] VITALS (7 sets, daily range): BP systolic 127–166; BP diastolic 64–82; PULSE 45–56; RESP 15–21; TEMP 36.8; O2SAT 96–100
--- NOTE | 2022-10-27 11:37 | XR_ITS ---
WS: [id number] Exam: XR chest 1V portable [id number] Date/Time of Exam: 10/27/2022 12:03 PM Reason For Exam: weakness Comparison 09/11/2022. The lungs are clear and fully expanded. Mild cardiac enlargement unchanged. No pleural effusions. Hea led RIGHT seventh rib fracture. Dextroscoliosis of the thoracic spine. The mediastinum is normal in c ontour. Moderate DJD of the RIGHT shoulder with high riding humeral head. Extensive atherosclerotic p laquing of the thoracic and abdominal aorta. IMPRESSION: 1. No acute cardiopulmonary finding. 2. Mild cardiac enlargement unchanged.
--- NOTE | 2022-10-27 11:38 | ED_ITS ---
HPI - Weakness General: Chief complaint: Weakness Stated complaint: weakness Time Seen by Provider: 10/27/22 10:49 Source: patient and family Mode of arrival: EMS Limitations: altered mental status (mild dementia) History of Present Illness: Patient is an 86-year-old female who presents to ED today along with family for complaints of weakness. Family states she was found lying in the floor this morning and states she was too weak to get up on her own. Patient tells me she had sat on the floor yesterday evening to watch television. She states she had placed couch cushions and gotten a book to read on the floor. Family confirms that she had seemed to make a bed on the floor. Patient tells me there was no fall. She has no complaints of pain anywhere. She states she wanted to get up but feels like she could not find the strength in her legs to get up. PMH is significant for high blood pressure and hypothyroidism. Current medications include levothyroxine, lisinopril, atorvastatin. Last echo was performed upon last hospitalization and showed an EF of 55-60% MD Complaint: generalized weakness Onset (ago): hour(s) Duration: intermittent Location: LLE and RLE Migration: none Severity: moderate Relieving factors: none Exacerbating factors: none Associated symptoms: Reports no associated symptoms; Denies chest pain, chills, fever(s) or headache(s) Review of Systems Const: Reports: other (generalized weakness); Denies: fever(s), chills, body aches, fatigue or malaise Card: Denies: chest pain, palpitations, edema, swelling of feet/ankles, dyspnea on exertion, orthopnea, leg pain with exertion or acrocyanosis Musc: Denies: neck pain, back pain, extremity pain, extremity swelling, joint pain or joint swelling Neuro: Reports: weakness in extremities (legs); Denies: headache(s), numbness in extremities, sensory changes, lack of coordination or dizziness PFSH ED PFSH: Medical History Accelerated hypertension Adult onset hypothyroidism Basal cell carcinoma (BCC) Bradycardia Cigarette smoker Essential (primary) hypertension Meningioma, cerebral Mixed hyperlipidemia Rhabdomyolysis Syncope Vitamin D insufficiency Surgical History History of cataract surgery History of hip surgery right 2018 Family History Other CHF (congestive heart failure) Cancer Diabetes Social History Smoking and tobacco status: current every day smoker Second hand smoke exposure: Yes Smoking risk assessment/counseling performed?: Yes Alcohol intake: never Desire information about alcohol rehabilitation?: No Counseling given: No Substance/Drug Use: never Desire information about substance/drug rehabilitation?: No Counseling given: No Adopted: No Caregiver/support person: No Lives independently: Yes Marital status: Single Number of children: 2 Current occupational status: retired Do you think of yourself as: Straight/Heterosexual Current gender identity: Female Physical Exam Const: COMMON NORMALS: no acute distress, average body habitus, patient oriented x3, no limitations, healthy appearing, alert and well nourished EXAM LIMITATIONS: altered mental status (slight dementia-family states she is at baseline) GENERAL APPEARANCE: cooperative ORIENTATION/CONSCIOUSNESS: Yes awake, Yes oriented to person and Yes oriented to place HENMT: COMMON NORMALS: normocephalic and atraumatic HEAD & SCALP: normal to inspection, normocephalic and atraumatic Eye: GENERAL EYE: appearance normal, both eyes and all related structures and normal light reflex DIRECT OPHTHALMOSCOPY: Yes normal light reflex Neck/C-Spine: COMMON NORMALS: full ROM, no lymphadenopathy and no meningeal signs GENERAL: Yes normal visual inspection CERVICAL SPINE: Yes cervical ROM normal and No Cervical spine tenderness Chest: COMMONS NORMALS: normal inspection of the chest and normal palpation of entire chest wall Resp: COMMON NORMALS: normal respiratory effort and clear to auscultation bilaterally AUSCULTATION: clear to auscultation bilaterally Cardio: COMMON NORMALS: regular rhythm RATE: bradycardic RHYTHM: regular rhythm GI: COMMON NORMALS: Normal to inspection, nondistended, normoactive bowel sounds present, Soft to palpation and non-tender PALPATION: Yes Soft to palpation Back/Pelvis: COMMON NORMALS: thoracic and lumbar spine normal to inspection, no thoracic nor lumbar tenderness and thoraco-lumbar ROM normal Extremity: COMMON NORMALS: normal to inspection, full ROM, capillary refill normal, no joint enlargement, no clubbing, cyanosis or edema, no calf tenderness and no pedal edema GENERAL: Yes normal exam except as noted Neuro: COMMON NORMALS: patient oriented x3, CN's II-XII intact bilaterally, moves all extremities, no focal motor deficits and no sensory deficits noted SENSORIUM/ORIENTATION: Yes alert, Yes oriented to person and Yes oriented to place MENINGEAL SIGNS: Yes no meningeal signs SPEECH: speech normal MOTOR EXAM: 5/5 motor strength present throughout Skin: COMMON NORMALS: no rashes or lesions noted GENERAL SKIN EXAM: no rashes or lesions noted Course Consultations: Consultation #1: Dr. Martinez-accepts hospitalization Vital Signs: Vital signs: Vital Signs Temperature 98.2 F 10/27/22 10:46 Pulse Rate 49 L 10/27/22 12:36 Respiratory Rate 18 10/27/22 12:36 Blood Pressure 154/82 10/27/22 12:36 Pulse Oximetry 98 10/27/22 12:36 Oxygen Delivery Me thod Room Air 10/27/22 12:36 MDM - Weakness Medical Decision Making Patient here along with family for concerns of weakness after lying on the floor all night. Patient states she laid on the floor to watch television. She denies any fall and has zero physical complaints at this time. No notable weakness to her lower extremities on exam. She did arrive bradycardic. Patient does have a history of this and has an appointment with Dr. Mancilla next month. Patient was recently admitted to the hospital with similar story although she had complained of some lightheadedness and dizziness at that time. EKGs during that hospitalization showing sinus bradycardia with heart rates averaging in the 40s. EKG today appears similar although she has a prolonged QT today. Blood work overall is unremarkable apart from her CPK which is critically elevated at 513. Her baseline troponin is 165. Patient has no complaints of chest pain at this time. Last troponin was performed during her last hospitalization and found to be 67. CXR is normal. Urine is pending. Dr. Belcher is followed along with patient throughout her hospitalization and agrees with plan for admission. Will go ahead and start her on IV fluids. Her last echo performed last month showed a normal EF. Lab Data 10/27/22 11:50 10/27/22 11:50 Laboratory Results WBC 7.15 10^3/uL (3.29-11.43) 10/27/22 11:50 RBC 3.99 10^6/uL (3.85-5.65) 10/27/22 11:50 Hgb 12.30 g/dL (11.27-16.99) 10/27/22 11:50 Hct 37.7 % (36-47) 10/27/22 11:50 MCV 94.5 fl (85-98) 10/27/22 11:50 MCH 30.8 pg (27-33) 10/27/22 11:50 MCHC 32.6 g/dL (30-55) 10/27/22 11:50 RDW 14.2 % (12.1-15.1) 10/27/22 11:50 Plt Count 216 10^3/cmm (157-399) 10/27/22 11:50 MPV 10.2 fL (7.4-10.4) 10/27/22 11:50 Neut % (Auto) 73.0 % 10/27/22 11:50 Lymph % (Auto) 19.2 % 10/27/22 11:50 [place] % (Auto) 6.7 % 10/27/22 11:50 Eos % (Auto) 0.4 % 10/27/22 11:50 Baso % (Auto) 0.6 % 10/27/22 11:50 Neut # (Auto) 5.22 10^3/uL (1.8-7.7) 10/27/22 11:50 Lymph # (Auto) 1.4 10^3/uL (0.8-4.8) 10/27/22 11:50 [place] # (Auto) 0.5 10^3/uL (0.2-0.9) 10/27/22 11:50 Eos # (Auto) 0.0 10^3/uL (0.0-0.8) 10/27/22 11:50 Baso # (Auto) 0.0 10^3/uL (0.0-0.1) 10/27/22 11:50 Nucleated RBC % (auto) 0 % 10/27/22 11:50 Nucleated RBCs # 0.0 /100WBC 10/27/22 11:50 Sodium 144 mmol/L (136-145) 10/27/22 11:50 Potassium 4.1 mmol/L (3.5-5.1) 10/27/22 11:50 Chloride 107 mmol/L (98-107) 10/27/22 11:50 Carbon Dioxide 25 mmol/L (22-29) 10/27/22 11:50 Anion Gap 16.1 (5-19) 10/27/22 11:50 BUN 26 mg/dL (8-23) H 10/27/22 11:50 Creatinine 1.1 mg/dL (0.5-0.9) H 10/27/22 11:50 GFR Calculation Not Reportable 10/27/22 11:50 Glucose 76 mg/dL (65-115) 10/27/22 11:50 Calculated Osmolality 302 mOsm/kg (285-295) H 10/27/22 11:50 Calcium 9.4 mg/dL (8.5-10.5) 10/27/22 11:50 Magnesium 2.0 mg/dL (1.7-2.3) 10/27/22 11:50 Total Bilirubin 0.6 mg/dL (0.15-1.2) 10/27/22 11:50 AST 22 U/L (0-32) 10/27/22 11:50 ALT 9 U/L (0-33) 10/27/22 11:50 Alkaline Phosphatase 92 U/L (35-105) 10/27/22 11:50 Creatine Kinase 513 U/L (26-192) H* 10/27/22 11:50 Troponin T Baseline 165 ng/L (0-10) H* 10/27/22 11:50 Total Protein 6.3 g/dL (6.6-8.7) L 10/27/22 11:50 Albumin 3.6 g/dL (3.5-5.2) 10/27/22 11:50 Globulin 2.7 g/dL (1.3-4.6) 10/27/22 11:50 TSH 0.12 uIU/mL (0.27-4.20) L 10/27/22 11:50 Discharge Plan Discharge Patient Disposition: Admitted As Inpatient Clinical Impression: Generalized weakness, Rhabdomyolysis, Elevated troponin, Bradycardia Condition: Stable Prescriptions: No Action cholecalciferol (vitamin D3) 1,250 mcg (50,000 unit) tablet 50,000 unit PO .1st and 16th monthly Qty: 2 5RF atorvastatin 10 mg tablet 10 mg PO DAILY Qty: 30 5RF lisinopril 40 mg tablet 40 mg PO DAILY Qty: 30 5RF (DME) DME: Walker Unit See Rx Instructions .ROUTE .MEDSUPPLY Qty: 1 0RF Rx Instructions: Code E0143 and E0156 walker 4 wheels and seat levothyroxine 175 mcg tablet 175 mcg PO DAILY Qty: 90 0RF Rx Instructions: dose increase. Lab needed 11 weeks Referrals: Marilou Pastrana FNP-C [Primary Care Provider] - Coding Level of Care Code ED Open[employer] Developer for Chg Martinez
--- NOTE | 2022-10-27 11:48 | ECG_ITS ---
[facility] Test Date: 2022-10-27 Pat Name: Amy Davies Department: Room: Gender: Female Customer Relations Consultant: : 1935 Requested By: Pat Reno Order Number: [id number] Chanelle MD: Fernando العراقي M.D. Measurements Intervals [place] Rate: 51 P: -70 CT: 105 QRS: 66 QRSD: 89 T: 79 QT: 595 QTc: 551 Interpretive Statements JUNCTIONAL BRADYCARDIA MODERATE T-WAVE ABNORMALITY, CONSIDER ANTERIOR ISCHEMIA [-0.1+ mV T-WAVE IN V3/V4] PROLONGED QT INTERVAL CRITICAL TEST RESULT Compared to ECG 09/11/2022 18:04:59 Possible ischemia now present Prolonged QT interval now present Sinus bradycardia no longer present T-wave abnormality still present Electronically Signed On 10-27-2022 19:28:31 CDT by Fernando العراقي M.D. [id number]
[2022-10-27 12:04] LABS: Basophils % 0.6 %; Eosinophils % 0.4 %; Hematocrit 37.7 % (36-47); Lymphocytes # 1.4 10^3/uL (0.8-4.8); Lymphocytes % 19.2 %; Mean Corpuscular HGB Conc 32.6 g/dL (30-55); Mean Corpuscular Hemoglobin 30.8 pg (27-33); Mean Corpuscular Volume 94.5 fl (85-98); Mean Platelet Volume 10.2 fL (7.4-10.4); Monocytes # 0.5 10^3/uL (0.2-0.9); Monocytes % 6.7 %; Neutrophils # 5.22 10^3/uL (1.8-7.7); Nucleated Red Blood Cells % 0 %; Platelet Count 216 10^3/cmm (157-399); Red Blood Count 3.99 10^6/uL (3.85-5.65); Red Cell Distribution Width 14.2 % (12.1-15.1); White Blood Count 7.15 10^3/uL (3.29-11.43)
[2022-10-27 12:29] LABS: Troponin(5th) Baseline 165 ng/L (0-10)
[2022-10-27 12:33] LABS: Alanine Aminotransferase 9 U/L (0-33); Albumin Level 3.6 g/dL (3.5-5.2); Alkaline Phosphatase 92 U/L (35-105); Anion Gap 16.1 (5-19); Aspartate Amino Transferase 22 U/L (0-32); Blood Urea Nitrogen 26 mg/dL (8-23); Calcium 9.4 mg/dL (8.5-10.5); Carbon Dioxide 25 mmol/L (22-29); Chloride 107 mmol/L (98-107); Globulin 2.7 g/dL (1.3-4.6); Glucose 76 mg/dL (65-115); Osmolality Calculated 302 mOsm/kg (285-295); Potassium 4.1 mmol/L (3.5-5.1); Sodium 144 mmol/L (136-145); Thyroid Stimulating Hormone 0.12 uIU/mL (0.27-4.20); Total Bilirubin 0.6 mg/dL (0.15-1.2); Total Protein 6.3 g/dL (6.6-8.7)
--- NOTE | 2022-10-27 12:39 | ECG_ITS ---
[facility] Test Date: 2022-10-27 Pat Name: Amy Davies Department: Room: Gender: Female Director Of Infection Prevention: : 1935 Requested By: Pat Reno Order Number: [id number] Chanelle MD: Fernando العراقي M.D. Measurements Intervals [place] Rate: 57 P: -69 ND: 109 QRS: 67 QRSD: 88 T: 75 QT: 568 QTc: 554 Interpretive Statements JUNCTIONAL BRADYCARDIA WITH OCCASIONAL SUPRAVENTRICULAR PREMATURE COMPLEXES MINIMAL VOLTAGE CRITERIA FOR LVH, CONSIDER NORMAL VARIANT [MEETS CRITERIA IN ONE OF: R(aVL), S(V1), R(V5), R(V5/V6)+S(V1)] ST DEVIATION AND MODERATE T-WAVE ABNORMALITY, CONSIDER ANTERIOR ISCHEMIA [-0.1+ mV T-WAVE IN V3/V4] PROLONGED QT INTERVAL CRITICAL TEST RESULT Compared to ECG 10/27/2022 11:48:45 No significant changes Electronically Signed On 10-27-2022 19:29:23 CDT by Fernando العراقي M.D. [id number]
[2022-10-27] MEDS: aspirin 81 mg Chew Tablet 324 MG PO (12:43)
[2022-10-27 12:48] LABS: Creatine Phosphokinase 513 U/L (26-192)
[2022-10-27] MEDS: sodium chloride 0.9% 1,000 ML 999 ML IV (13:29)
[2022-10-27 13:54] LABS: Free T4 Free Thyroxine 1.77 ng/dL (0.82-1.77); T3 Free 1.8 PG/ML (2.0-4.4)
--- NOTE | 2022-10-27 13:55 | ECG_ITS ---
[facility] Test Date: 2022-10-27 Pat Name: Amy Davies Department: Room: Gender: Female Shipping Lead: : 1935 Requested By: Pat Reno Order Number: [id number] Chanelle MD: Fernando العراقي M.D. Measurements Intervals [place] Rate: 50 P: -75 [place]: 109 QRS: 65 QRSD: 91 T: 71 QT: 629 QTc: 574 Interpretive Statements JUNCTIONAL BRADYCARDIA ST DEVIATION AND MODERATE T-WAVE ABNORMALITY, CONSIDER ANTERIOR ISCHEMIA [-0.1+ mV T-WAVE IN V3/V4] PROLONGED QT INTERVAL CRITICAL TEST RESULT Compared to ECG 10/27/2022 12:44:11 No significant changes Electronically Signed On 10-27-2022 19:29:27 CDT by Fernando العراقي M.D. [id number]
[2022-10-27 14:12] LABS: CKMB 8.6 ng/mL (0-5.34); CKMB Relative Index 1.6 % (0.0-10.4)
[2022-10-27 14:24] LABS: Troponin 5 2HR Delta -8.9 ABS# (0-10)
[2022-10-27 14:33] LABS: Troponin 5 2HR 156.1 ng/L (0-10)
[2022-10-27 15:32] LABS: Add Urine Microscopic? YES; Bilirubin Urine Neg (Negative); Blood Urine 3+ (Negative); Glucose Urine UA Norm (Normal); Ketones Urine 1+ (Negative); Leukocyte Esterase Urine Negative (Negative); Nitrate Urine Negative (Negative); Protein Urine Neg (Negative); Urine Appearance Clear (CLEAR); Urine Color Yellow (Yellow); Urobilinogen Urine Norm (Negative); pH Urine 5 (5-7)
[2022-10-27 15:34] LABS: Add Urine Culture? No; Bacteria Urine TRACE /hpf; Fine Granular Casts Urine 0-4 /lpf; Mucus Urine 2+ /hpf; Squamous Epithelial Cell Urine 0-4 /hpf (0-5); WBC Urine 0-4 /hpf (0-5)
--- NOTE | 2022-10-27 15:35 | P.HP_ITS ---
Providers/Chief Complaint Admitting Physician: Reggie Martinez MD Primary Care Provider: Marilou Pastrana, SUPERINTENDENT TRANSPORTATION-C Chief Complaint: weakness History of Present Illness Amy Davies is a 86 year old female with a past medical history of hypertension, hyperlipidemia, history of bradycardia, history of a DVT, completed anticoagulation, who presents to [facility] due to generalized weakness. Patient tells me that yesterday morning, she was able to carry out her chores, she cleaned the bathroom, she carried out her regular activities, after doing this, at around noon time, she decided to lay on the floor instead of laying in her walker, as it was uncomfortable, with a rocking [id number], she spent the entire evening and night on the floor, as she felt comfortable there, she read a book she watch TV but this morning when she woke up she tried to get up off the floor she could not she felt weak in her legs, no facial droop no slurring of her words, no paresthesias, she is able to lift her legs, but just does not have the strength to lift her self off the ground, no history of strokes, no chest pain, no palpitations, no shortness of breath, no dysuria, hematuria, no diarrhea, no abdominal pain, no cough, no fevers, no ascending weakness, no urinary continence, no bowel incontinence, no saddle or perianal anesthesia, no back pain Review of Systems Const: Denies: fever(s) or chills Eyes: Denies: change in vision ENMT: Denies: throat pain Card: Denies: chest pain, palpitations, edema or syncope Resp: Denies: dyspnea or non-productive cough GI: Denies: abdominal pain, nausea, diarrhea, hematochezia or melena : Denies: flank pain, difficulty voiding or dysuria Musc: Denies: neck pain or back pain Skin/Breast: Denies: rash Neuro: Reports: weakness in extremities; Denies: headache(s), numbness in extremities, sensory changes, lack of coordination, frequent falls, dizziness, vertigo, confusion, Slurred speech present or difficulty communicating thoughts Psych: Denies: anxiety Endo: Denies: polyuria or polydipsia Medications/Allergies Home Medications Medication Instructions Recorded Confirmed Last Taken Type cholecalciferol (vitamin D3) 1,250 50,000 unit PO .1st and 02/02/22 10/27/22 10/14/22 Rx mcg (50,000 unit) tablet monthly #2 tabs atorvastatin 10 mg tablet 10 mg PO DAILY #30 tabs 08/11/22 10/27/22 10/27/22 Rx levothyroxine 175 mcg tablet 175 mcg PO DAILY #90 tabs 08/15/22 10/27/22 10/27/22 Rx lisinopril 40 mg tablet 40 mg PO DAILY #30 tabs 09/20/22 10/27/22 10/27/22 Rx DME: Walker #1 ea 10/13/22 10/27/22 Unknown Rx Allergies Allergy/AdvReac Type Severity Reaction Status Date / Time No Known Allergies Allergy Verified 10/27/22 10:54 PFSH Acute PFSH: Medical History Accelerated hypertension Adult onset hypothyroidism Basal cell carcinoma (BCC) Bradycardia Cigarette smoker Essential (primary) hypertension Meningioma, cerebral Mixed hyperlipidemia Rhabdomyolysis Syncope Vitamin D insufficiency Surgical History History of cataract surgery History of hip surgery right 2018 Family History Other CHF (congestive heart failure) Cancer Diabetes Social History Smoking and tobacco status: current every day smoker Second hand smoke exposure: Yes Smoking risk assessment/counseling performed?: Yes Alcohol intake: never Desire information about alcohol rehabilitation?: No Counseling given: No Substance/Drug Use: never Desire information about substance/drug rehabilitation?: No Counseling given: No Adopted: No Caregiver/support person: No Lives independently: Yes Marital status: Single Number of children: 2 Current occupational status: retired Do you think of yourself as: Straight/Heterosexual Current gender identity: Female Vitals/I&O/Wt Last Vital Signs Temp 98.2 F 10/27/22 10:46 Pulse 48 L 10/27/22 15:13 Resp 18 10/27/22 15:13 BP 154/82 10/27/22 15:13 Pulse Ox 98 10/27/22 15:13 O2 Del Method Room Air 10/27/22 15:13 10/27/22 10/27/22 10/27/22 06:59 14:59 22:59 Intake Total 1000 / 1000 Balance 1000 / 1000 Weight last 48 hrs Weight 68.039 kg Physical Exam Narrative: Severe protein calorie malnutrition, with temporal muscle wasting, bilateral calf muscle wasting, bilateral thighs, bilateral arms and shoulders muscle wasting, Const: COMMON NORMALS: no acute distress and patient oriented x3 HENMT: COMMON NORMALS: normocephalic HEAD & SCALP: normocephalic Eye: COMMON NORMALS: Equal, round and reactive pupils present and EOMs intact bilaterally Neck/C-Spine: COMMON NORMALS: no JVD Lymph: LYMPHATIC: no lymphadenopathy noted Resp: COMMON NORMALS: normal respiratory effort, No retractions, No use of accessory muscles and clear to auscultation bilaterally AUSCULTATION: clear to auscultation bilaterally Cardio: COMMON NORMALS: regular rate, regular rhythm, S1 normal heart sound present and S2 normal heart sound present RATE: regular rate RHYTHM: regular rhythm HEART SOUNDS: S1 normal heart sound present and S2 normal heart sound present GI: COMMON NORMALS: Normal to inspection, nondistended, normoactive bowel so unds present, Soft to palpation and non-tender Extremity: COMMON NORMALS: no pedal edema Neuro: COMMON NORMALS: patient oriented x3, CN's II-XII intact bilaterally, moves all extremities and no focal motor deficits Psych: COMMON NORMALS: mental status grossly normal Skin: NARRATIVE SKIN EXAM: Loose skin over abdomen present Data 10/27/22 11:50 10/27/22 11:50 CXR: My impression: No acute infiltrates, mild cardiomegaly EKG 3: My Interpretation: Bradycardia, T wave inversions in anterior leads,, QTc 5 or 74 ms, MA 190 ms, QRS 91 ms A&P Assessment and plan (1) Rhabdomyolysis: Qualifiers: Rhabdomyolysis type: non-traumatic Qualified Code(s): M62.82 - Rhabdomyolysis (2) NSTEMI (non-ST elevated myocardial infarction): (3) Bradycardia: (4) Arteriosclerosis: (5) Essential (primary) hypertension: (6) Vitamin D insufficiency: (7) Goals of care, counseling/discussion: (8) Severe protein-calorie malnutrition: (9) Physical deconditioning: (10) Muscle wasting: (11) Generalized weakness: Plan Generalized weakness -Orthostatic vitals were negative -UA negative for UTI -Chest x-ray no focal pneumonia -No significant electrolyte abnormalities -Will monitor, PT OT -No alarm symptoms no urine incontinence, no bowel incontinence or saddle apparent anesthesia, no ascending weakness NSTEMI -Type I versus type II -No chest pain complaints -Serial EKGs, serial troponins, telemetry monitoring -Continue aspirin, hold off. Given rhabdomyolysis, -Cardiac echo History of DVT, with elevated troponins, will order cardiac echo, D-dimer Rhabdomyolysis, IV fluids Bradycardia, with long QT, T wave inversions entire leads -Continue to telemetry monitoring -I had extensive discussion with patient's about pacemaker placement, if needed, she is unsure about it, video profoundly members had it, she has not made up her mind Muscle wasting, severe protein calorie malnutrition, bilateral calves, bilateral thighs, bilateral arms, temporal muscle wasting, will consult dietary, PT OT, supplement meals Patient is DNR/DNI Lovenox for DVT prophylaxis Goals of care, she is DNR/DNI, she tells me that if God is ready to take her, that she is ready, she does not want any life-sustaining measures, she is unsure about pacemaker placement she is going to think on it, he is okay with medications to help with a heart rate Attestations Medical Necessity Statement*: Patient requires hospitalization inpatient, greater than 2 midnights for genera lized weakness, NSTEMI, rhabdomyolysis, prolonged QT, bradycardia Diagnoses Rhabdomyolysis M62.82 Rhabdomyolysis type: non-traumatic NSTEMI (non-ST elevated myocardial infarction) I21.4 Bradycardia R00.1 Arteriosclerosis I70.90 Essential (primary) hypertension I10 Vitamin D insufficiency E55.9 Goals of care, counseling/discussion Z71.89 Severe protein-calorie malnutrition E43 Physical deconditioning R53.81 Muscle wasting M62.50 Generalized weakness R53.1
[2022-10-27 16:01] LABS: D Dimer 3.71 ug/mLFEU (0-0.59)
--- NOTE | 2022-10-27 16:01 | USCV_ITS ---
Keke Amy Age: 86 Gender: F : 1935 Exam Date: 10/27/2022 19:18 Ordering Phys: Reggie Martinez MD Technologist: DOMINIQUE [place]am Location[place] [facility] [place] [facility] [place] Indication: assess for DVT ; history of LLE DVT, patient cannot recall how long ago. AMS, dementia. HISTORY: assess for DVT ; history of LLE DVT, patient cannot recall how long ago. AMS, dementia. PROCEDURES: Venous duplex imaging was performed in bilateral lower extremities. The following venous structures were evaluated: common femoral vein, profunda vein, proximal portion of the greater saphenous vein, superficial femoral vein, and the popliteal vein. In addition, the posterior tibial veins were evaluated. FINDINGS: Acute DVT left: complete occlusion mid SFA through the popliteal vein. No right DVT. CONCLUSIONS Acute left lower extremity deep venous thrombosis, SFA and popliteal veins. Dr. Constance Hartman DO (Electronically Signed) Final Date: 28 October 2022 08:30 S
--- NOTE | 2022-10-27 16:01 | USCV_ITS ---
Keke Amy Age: 86 Gender: F : 1935 Exam Date: 10/27/2022 19:56 Ordering Phys: Reggie Martinez MD Technologist: DOMINIQUE [place] [facility] [place]: NSTEMI, weakness, history of LEFT atrial enlargement. There was a prior echo on 09/11/22. BP: 166 / 80 HR: 53 Rhythm: Sinus Technical Quality: Adequate MEASUREMENTS (Male / Female) Normal Values 2D ECHO LV Diastolic Diameter PLAX 3.1 cm 4.2 - 5.9 / 3.9 - 5.3 cm LV Systolic Diameter PLAX 2.0 cm IVS Diastolic Thickness 2.2 cm 0.6 - 1.0 / 0.6 - 0.9 cm IVS Systolic Thickness 2.8 cm LVPW Diastolic Thickness 1.6 cm 0.6 - 1.0 / 0.6 - 0.9 cm LVPW Systolic Thickness 2.2 cm LVOT Diameter 2.1 cm LV Ejection Fraction 2D Teich 68.1 % LV Ejection Fraction MOD 2C 77.6 % LV Ejection Fraction 2C AL 77.4 % LA Diameter 4.4 cm LA Width 4.6 cm LA Height 6.6 cm RA Width 3.2 cm RA Height 4.3 cm Aorta at Sinotubular Diameter 2.9 cm IVC Diameter 1.3 cm M-MODE Aortic Annulus Diameter 3.2 cm LA Ao Ratio MM 1.3 MV E Point Septal Separation 0.5 cm DOPPLER AV Peak Velocity 165.0 cm/s LVOT Peak Velocity 91.0 cm/s AV Area Cont Eq vti 2.1 cm squared AV Area Cont Eq pk 1.9 cm squared MV Peak Velocity 104.0 cm/s MV Area PHT 2.5 cm squared Mitral E to A Ratio 0.8 MV E' Velocity 39.0 cm/s Mitral E to MV E' Ratio 12.2 Mitral E to LV E' Lateral Ratio 9.7 Mitral E to LV E' Septal Ratio 16.4 TR Peak Velocity 229.0 cm/s TR Peak Gradient 21.0 mmHg TV Peak E Velocity 59.0 cm/s Right Atrial Pressure 5.0 mmHg Pulmonary Artery Systolic Pressu 26.0 mmHg PV Peak Velocity 95.0 cm/s RV Acceleration Time 0.1 s RV Ejection Time 0.4 s RV AcT/ET 0.3 FINDINGS Left Ventricle Normal left ventricular size and systolic function, EF 75 %. No regional wall motion abnormalities. Moderate left ventricular hypertrophy. Grade I/IV diastolic dysfunction (abnormal relaxation filling pattern), normal to mildly elevated filling pressures. Right Ventricle The right ventricle is normal in size and function. Right Atrium The right atrium is normal in size. Left Atrium Mildly increased left atrial size. Mitral Valve Trace mitral valve regurgitation. Aortic Valve Thickened aortic valve. Moderate aortic valve calcification. Tricuspid Valve Mild tricuspid valve regurgitation. Pulmonic Valve Mild pulmonary valve regurgitation. Pericardium Normal pericardium without effusion. Aorta Normal ascending aorta dimension. IVC Normal inferior vena cava. CONCLUSIONS Normal left ventricular size and systolic function, EF 75 %. No regional wall motion abnormalities. Moderate left ventricular hypertrophy. Grade I/IV diastolic dysfunction (abnormal relaxation filling pattern), normal to mildly elevated filling pressures. Mildly increased left atrial size. Thickened aortic valve. Moderate aortic valve calcification. Trace mitral valve regurgitation. Mild pulmonary valve regurgitation. Estimated pulmonary artery peak systolic pressure 26 mmHg There is no pericardial effusion. There are no intracardiac masses. Compared to the study from 09/11/2022, there may not be a significant change Dr Cyndee Mancilla MD FACC (Electronically Signed) Final Date: 27 October 2022 22:16 S
--- NOTE | 2022-10-27 16:49 | CTR_ITS ---
PROCEDURE INFORMATION: Exam: CTA Chest With Contrast Exam date and time: 10/27/2022 9:47 PM Age: 86 years old Clinical indication: Abnormal findings; Abnormal diagnostic tests; Elevated d-dimer and other: Heavenly trop; Additional info: Weakness, eleavted d dimer, elevated trop TECHNIQUE: Imaging protocol: Computed tomographic angiography of the chest with contrast. Exam focused on the arteries. 3D rendering (Not supervised by radiologist): MIP and/or 3D reconstructed images were created by the technologist. Radiation optimization: All CT scans at this facility use at least one of these dose optimization techniques: automated exposure control; mA and/or kV adjustment per patient size (includes targeted exams where dose is matched to clinical indication); or iterative reconstruction. Contrast material: OMNI 350; Contrast volume: 80 ml; Contrast route: INTRAVENOUS (IV); REPORTING DATA: Count of CT and Cardiac NM exams in prior 12 months: This patient has received 2 known CTs and 0 known cardiac nuclear medicine studies in the 12 months prior to the current study. COMPARISON: CR XR chest 1V portable [id number] 10/27/2022 12:13 PM RADIATION DOSE METRICS: Total DLP (mGy-cm): 321.23 FINDINGS: Pulmonary arteries: Normal. No pulmonary emboli. Aorta: Unremarkable. No aortic aneurysm. No aortic dissection. Lungs: There is probable atelectasis/scar in the lungs. There is mild ground-glass opacification in all lobes of the bilateral lungs. No dominant lung mass. Pleural spaces: Unremarkable. No pneumothorax. No pleural effusion. Heart: Unremarkable. No cardiomegaly. No pericardial effusion. Lymph nodes: Unremarkable. No enlarged lymph nodes. Bones/joints: Degenerative change is identified in the spine. There is no evidence for acute fracture or malalignment. Soft tissues: Unremarkable. CT/CT angio chest PE protcl [id number] IMPRESSION: There is no evidence for a pulmonary artery embolus. There is mild ground-glass opacification in all lobes of the bilateral lungs consistent with pneumonia and/or edema.
[2022-10-27] MEDS: pantoprazole 40 mg SDV IVP (17:37)
[2022-10-27] MEDS: enoxaparin 40 mg/0.4 mL Syringe SUBCUT (17:37)
[2022-10-27] MEDS: sodium chloride 0.9% 1,000 ML 75 ML IV (17:38)
--- NOTE | 2022-10-27 18:05 | ECG_ITS ---
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 Measurements Intervals [place] Rate: 50 P: 9 PA: 146 QRS: 56 QRSD: 98 T: 68 QT: 611 QTc: 562 Interpretive Statements SINUS BRADYCARDIA WITH FREQUENT SUPRAVENTRICULAR PREMATURE COMPLEXES MARKED T-WAVE ABNORMALITY, CONSIDER ANTERIOR ISCHEMIA [-0.5+ mV T-WAVE IN V3/V4] PROLONGED QT INTERVAL CRITICAL TEST RESULT Compared to ECG 10/27/2022 14:04:34 No significant changes Electronically Signed On 10-27-2022 19:30:52 CDT by Fernando العراقي M.D. [email or web address]
[2022-10-27 19:06] LABS: Troponin 5 6HR Delta -23.7 ng/L (0-12)
[2022-10-27 19:08] LABS: Troponin 5 6HR 141.3 ng/L (0-10)
[2022-10-27] MEDS: iohexol 350 mg/mL 500 mL Btl (per mL) IV (21:52)
[2022-10-28] VITALS (11 sets, daily range): BP systolic 134–187; BP diastolic 65–79; PULSE 48–74; RESP 15–28; TEMP 36.6–37.2; O2SAT 93–99
[2022-10-28 05:22] LABS: Basophils % 0.5 %; Eosinophils # 0.2 10^3/uL (0.0-0.8); Eosinophils % 3.5 %; Hematocrit 32.5 % (36-47); Lymphocytes # 1.3 10^3/uL (0.8-4.8); Lymphocytes % 22.4 %; Mean Corpuscular HGB Conc 32.3 g/dL (30-55); Mean Corpuscular Hemoglobin 30.5 pg (27-33); Mean Corpuscular Volume 94.5 fl (85-98); Monocytes # 0.5 10^3/uL (0.2-0.9); Monocytes % 8.2 %; Neutrophils # 3.88 10^3/uL (1.8-7.7); Neutrophils % 65.1 %; Nucleated Red Blood Cells % 0 %; Platelet Count 202 10^3/cmm (157-399); Red Blood Count 3.44 10^6/uL (3.85-5.65); Red Cell Distribution Width 14.6 % (12.1-15.1); White Blood Count 5.97 10^3/uL (3.29-11.43)
[2022-10-28 05:48] LABS: Alanine Aminotransferase 8 U/L (0-33); Albumin Level 3.1 g/dL (3.5-5.2); Alkaline Phosphatase 75 U/L (35-105); Anion Gap 11.5 (5-19); Aspartate Amino Transferase 19 U/L (0-32); Blood Urea Nitrogen 31 mg/dL (8-23); Calcium 8.6 mg/dL (8.5-10.5); Carbon Dioxide 25 mmol/L (22-29); Chloride 112 mmol/L (98-107); Globulin 2.5 g/dL (1.3-4.6); Glucose 99 mg/dL (65-115); Osmolality Calculated 305 mOsm/kg (285-295); Phosphorus 3.8 mg/dL (2.5-4.5); Potassium 4.5 mmol/L (3.5-5.1); Sodium 144 mmol/L (136-145); Total Bilirubin 0.2 mg/dL (0.15-1.2); Total Protein 5.6 g/dL (6.6-8.7)
[2022-10-28] MEDS: sodium chloride 0.9% 1,000 ML 75 ML IV ×2 (07:59→09:40)
[2022-10-28 09:24] LABS: Creatine Phosphokinase 248 U/L (26-192)
--- NOTE | 2022-10-28 09:35 | PC.CHAP ---
Pastoral Care Encounter/Spiritual Assessment Type of Contact [] Declined ward assistant visit [] Patient/Family/Request visit [] Outpatient visit [] Follow-up visit [] Physician referral [] Code/Alert [x] Routine visit [] Staff referral [] Actively dying [] Patient sleeping [] Family support [] [] Out of room [] Palliative care [] [] Receiving care in room [] Pre-surgical visit [] Trauma [] Long length of stay [] ICU visit [] Other: Relational/Emotional Strength [x] Patient feels connected with others/family/visitors/staff [] Distress [] Loneliness/isolation [] Abandonment Spirituality of Patient [x] Person of Darlene [] Attends Zoroastrianism of their Darlene [x] Believes in Prayer [] Reads Bible or Hindu materials [] There are Spiritual issues to be addressed Stave Cutter Interventions [x] Prayer [x] Active listening [] Non-anxious presence [x] Spiritual/emotional support [] Crisis/trauma care [] Spiritual counseling [] Bereavement support [] Provided bereavement packet [] Provided Bible/devotional materials [] Provided toy/stuffed animal, coloring book to patient or family member [] Provided Communion [] Anointing/[place] [] Salvation [x] Completed spiritual assessment [] Other: Impact on Illness or Injury [] Angry [] Fearful [] Anxious [] Often cries [] Exhaustion [] Unable to work [] Unable to attend presybeterian [] Unable to walk/stand [] Unable to read [] Unable to drive [] Unable to eat/drink [] Unable to sleep [] Unable to be with family [] Patient intubated [] Other: Summary Time spent with patient 5 min
[2022-10-28] MEDS: aspirin 81 mg EC Tablet PO (09:38)
[2022-10-28] MEDS: levothyroxine 175 mcg Tablet PO (09:38)
[2022-10-28] MEDS: cefTRIAXone 1,000 MG in sodium chloride 0.9% (plus) 50 ML 100 MG IV (09:39)
[2022-10-28] MEDS: pantoprazole 40 mg SDV IVP (09:39)
[2022-10-28] MEDS: azithromycin 500 MG in sodium chloride 0.9% 250 ML 250 MG IV (09:39)
[2022-10-28] MEDS: heparin 5,000 unit/mL INJ 1 mL IV (10:34)
[2022-10-28] MEDS: heparin drip 25,000 UNIT/500 ML PREMIX 19 UNIT IV (10:35)
--- NOTE | 2022-10-28 14:40 | USR_ITS ---
PROCEDURE INFORMATION: Exam: US Retroperitoneal; Complete; Kidneys and Bladder Exam date and time: 10/28/2022 4:44 PM Age: 86 years old Clinical indication: Condition or disease; Other: Samuel; Additional info: Samuel, with doppler TECHNIQUE: Imaging protocol: Real-time ultrasound of the retroperitoneum with image documentation. Complete exam focused on the kidneys and bladder. COMPARISON: CT abdomen pelvis wo con [id number] 10/12/2022 1:48 PM FINDINGS: Right kidney: The right kidney measures 10.4 x 5.6 x 5.3 cm in approximately 1.4 cm simple cyst is seen in the lower pole. No solid mass or hydronephrosis. No cortical thinning. Cortical thickness measures about 1.3 cm. Blood flow is visualized. Left kidney: There is suboptimal visualization of the left kidney which appears to be relatively hypoplastic with uncertain measurements. No blood flow is seen on color Doppler imaging. Aorta: There are extensive aortic calcifications. The distal aorta is ectatic measuring about 2.9 cm in diameter. Urinary bladder: The bladder is unremarkable. US/US renal BI* [id number] IMPRESSION: 1. Simple cyst in the right kidney. Otherwise unremarkable right kidney. 2. Hypoplastic left kidney. Unable to document blood flow with color Doppler. 3. Ectatic calcified abdominal aorta.
--- NOTE | 2022-10-28 15:04 | P.PN_ITS ---
Vitals/I&O/Wt Last Vital Signs Temp 98.6 F 10/28/22 12:00 Pulse 62 10/28/22 12:00 Resp 18 10/28/22 12:00 BP 176/79 10/28/22 12:00 Pulse Ox 95 10/28/22 12:00 O2 Del Method Room Air 10/28/22 12:00 10/28/22 10/28/22 10/28/22 06:59 14:59 22:59 Intake Total 1300 / 2540 720 / 720 Balance 1300 / 2540 720 / 720 Weight last 48 hrs Weight 68.039 kg Physical Exam Const: COMMON NORMALS: no acute distress and patient oriented x3 Resp: COMMON NORMALS: normal respiratory effort, No retractions, No use of accessory muscles and clear to auscultation bilaterally AUSCULTATION: clear to auscultation bilaterally Cardio: COMMON NORMALS: regular rate, regular rhythm, S1 normal heart sound present and S2 normal heart sound present RATE: regular rate RHYTHM: regular rhythm HEART SOUNDS: S1 normal heart sound present and S2 normal heart sound present GI: COMMON NORMALS: Normal to inspection, nondistended, normoactive bowel sounds present and non-tender Extremity: COMMON NORMALS: no pedal edema Neuro: COMMON NORMALS: patient oriented x3 Psych: COMMON NORMALS: mental status grossly normal Data 10/28/22 04:24 10/28/22 04:24 A&P Assessment and plan (1) DVT (deep venous thrombosis): (2) CLOVIS (acute kidney injury): (3) Bradycardia: (4) Arteriosclerosis: (5) Essential (primary) hypertension: (6) Vitamin D insufficiency: (7) Goals of care, counseling/discussion: (8) Severe protein-calorie malnutrition: (9) Physical deconditioning: (10) Muscle wasting: (11) Generalized weakness: Plan Generalized weakness -Orthostatic vitals were negative -UA negative for UTI -Chest x-ray no focal pneumonia -No significant electrolyte abnormalities -Will monitor, PT OT -No alarm symptoms no urine incontinence, no bowel incontinence or saddle apparent anesthesia, no ascending weakness Acute kidney injury -IV fluids -Renal ultrasound NSTEMI -Type I versus type II -No chest pain complaints -Serial EKGs, serial troponins, telemetry monitoring -Continue aspirin, hold of on statins , Given rhabdomyolysis, -CT angiogram negative for PE given left lower extremity DVT -Cardiac echo CONCLUSIONS ?Normal left ventricular size and systolic function, EF 75 %. No ?regional wall motion abnormalities.? Moderate left ventricular ?hypertrophy. Grade I/IV diastolic dysfunction (abnormal ?relaxation filling pattern), normal to mildly elevated filling ?pressures. ?Mildly increased left atrial size. ?Thickened aortic valve. Moderate aortic valve calcification. ?Trace mitral valve regurgitation. ?Mild pulmonary valve regurgitation. ?Estimated pulmonary artery peak systolic pressure 26 mmHg ?There is no pericardial effusion. ?There are no intracardiac masses. ?Compared to the study from 09/11/2022, there may not be a ?significant change Acute DVT, left lower extremity, start heparin drip CT angiogram negative for pulmonary embolism or- Rhabdomyolysis, IV fluids Bradycardia, with long QT, T wave inversions entire leads -Continue to telemetry monitoring -I had extensive discussion with patient's about pacemaker placement, if needed, she is unsure about it, video profoundly members had it, she has not made up her mind Muscle wasting, severe protein calorie malnutrition, bilateral calves, bilateral thighs, bilateral arms, temporal muscle wasting, will consult dietary, PT OT, supplement meals Patient is DNR/DNI Lovenox for DVT prophylaxis Goals of care, she is DNR/DNI, she tells me that if God is ready to take her, that she is ready, she does not want any life-sustaining measures, she is unsure about pacemaker placement she is going to think on it, he is okay with medications to help with a heart rate Attestations Medical Necessity Statement*: Patient requires hospitalization for acute DVT, NSTEMI, clovis Diagnoses DVT (deep venous thrombosis) I82.409 CLOVIS (acute kidney injury) N17.9 Bradycardia R00.1 Arteriosclerosis I70.90 Essential (primary) hypertension I10 Vitamin D insufficiency E55.9 Goals of care, counseling/discussion Z71.89 Severe protein-calorie malnutrition E43 Physical deconditioning R53.81 Muscle wasting M62.50 Generalized weakness R53.1
[2022-10-28 17:15] LABS: Partial Thromboplastin Time 190.3 SECONDS (23.9-36.7)
[2022-10-28 21:11] LABS: Partial Thromboplastin Time 101.1 SECONDS (23.9-36.7)
[2022-10-28] MEDS: atorvastatin 40 mg Tablet PO (21:57)
[2022-10-29] VITALS (7 sets, daily range): BP systolic 161–177; BP diastolic 76–99; PULSE 47–75; RESP 15–22; TEMP 36.6–37; O2SAT 95–98
[2022-10-29] MEDS: sodium chloride 0.9% 1,000 ML 75 ML IV (04:33)
[2022-10-29 05:06] LABS: Basophils % 0.7 %; Eosinophils # 0.4 10^3/uL (0.0-0.8); Hematocrit 33.8 % (36-47); Lymphocytes # 1.6 10^3/uL (0.8-4.8); Lymphocytes % 29.8 %; Mean Corpuscular HGB Conc 31.1 g/dL (30-55); Mean Corpuscular Hemoglobin 30.3 pg (27-33); Mean Corpuscular Volume 97.7 fl (85-98); Monocytes # 0.5 10^3/uL (0.2-0.9); Monocytes % 8.3 %; Neutrophils # 2.86 10^3/uL (1.8-7.7); Nucleated Red Blood Cells % 0 %; Platelet Count 180 10^3/cmm (157-399); Red Blood Count 3.46 10^6/uL (3.85-5.65); Red Cell Distribution Width 14.6 % (12.1-15.1)
[2022-10-29 05:36] LABS: Anion Gap 9.9 (5-19); Blood Urea Nitrogen 21 mg/dL (8-23); Calcium 8.2 mg/dL (8.5-10.5); Carbon Dioxide 26 mmol/L (22-29); Chloride 111 mmol/L (98-107); Glucose 94 mg/dL (65-115); Osmolality Calculated 299 mOsm/kg (285-295); Partial Thromboplastin Time 211.8 SECONDS (23.9-36.7); Potassium 3.9 mmol/L (3.5-5.1); Sodium 143 mmol/L (136-145)
--- NOTE | 2022-10-29 05:48 | PC.NURSE ---
Nurse voalte messaged Dr. Alvarez to inform her that patient's PTT was critical at 211.8 and heparin gtt had been stopped, Dr. Alvarez responded ok, check ptt in 1 hour
[2022-10-29] MEDS: azithromycin 500 MG in sodium chloride 0.9% 250 ML 250 MG IV (09:07)
[2022-10-29] MEDS: pantoprazole 40 mg SDV IVP (09:07)
[2022-10-29] MEDS: levothyroxine 175 mcg Tablet PO (09:08)
[2022-10-29] MEDS: cefTRIAXone 1,000 MG in sodium chloride 0.9% (plus) 50 ML 50 MG IV (09:08)
[2022-10-29] MEDS: aspirin 81 mg EC Tablet PO (09:08)
[2022-10-29 09:17] LABS: Partial Thromboplastin Time 151.4 SECONDS (23.9-36.7)
--- NOTE | 2022-10-29 09:29 | PC.SOCIAL ---
Pg 2 IMM Explained to pt Pg 2 IMM. No questions voiced. Provided pt a copy. Initialed, dated, & timed a copy & placed in chart.
--- NOTE | 2022-10-29 09:48 | PC.NURSE ---
Provider notified of PTT results at 0920. Provider stopped heparin drip and will start PO medication at 1300 today. Also see critical lab flow sheet.
--- NOTE | 2022-10-29 11:38 | P.DS_ITS ---
Discharge Providers Date of Admission: 10/27/22 13:35 Date of Discharge: October 29, 2022 Attending Provider at Admission: Reggie Martinez MD Attending Provider at Discharge: Reggie Martinez MD Primary Care Provider: STEFFANY White Diagnoses at Discharge Discharge Diagnosis (1) DVT (deep venous thrombosis): Status: Acute (2) CLOVIS (acute kidney injury): Status: Acute (3) Bradycardia: Status: Acute (4) Arteriosclerosis: Status: Acute (5) Essential (primary) hypertension: Status: Chronic (6) Vitamin D insufficiency: Status: Chronic (7) Goals of care, counseling/discussion: Status: Acute (8) Severe protein-calorie malnutrition: Status: Acute (9) Physical deconditioning: Status: Acute (10) Muscle wasting: Status: Acute (11) Generalized weakness: Status: Acute Reason for Visit Reason for Visit: weakness Hospital Course Hospital Course Amy Davies is a 86 year old female with a past medical history of hypertension, hyperlipidemia, history of bradycardia, history of a DVT, completed anticoagulation, who presents to [facility] due to generalized weakness.? Patient tells me that yesterday morning, she was able to carry out her chores, she cleaned the bathroom, she carried out her regular act ivities, after doing this, at around noon time, she decided to lay on the floor instead of laying in her walker, as it was uncomfortable, with a rocking [id number], she spent the entire evening and night on the floor, as she felt comfortable there, she read a book she watch TV but this morning when she woke up she tried to get up off the floor she could not she felt weak in her legs, no facial droop no slurring of her words, no paresthesias, she is able to lift her legs, but just does not have the strength to lift her self off the ground, no history of strokes, no chest pain, no palpitations, no shortness of breath, no dysuria, hematuria, no diarrhea, no abdominal pain, no cough, no fevers, no ascending weakness, no urinary continence, no bowel incontinence, no saddle or perianal anesthesia, no back pain This is a 86-year-old female who presented to [facility] for generalized weakness, CT angiogram of the chest shows scattered infiltrates, possible pneumonia, she was started with IV antibiotics, so far remained afebrile, discharged on p.o. 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 On discharge I will discharge her with instructions to drink plenty of electrolyte balanced fluids, avoid nephrotoxic agents, follow-up with nephrology in [place] Patient had bradycardia with prolonged QT during hospitalization asymptomatic, no lightheadedness, dizziness, no passing out spells, no significant sinus block or bundle branch block, we had extensive discussion with her about considering pacemaker placement however for now she declines pacemaker placement, wanted to medically manage, will discharge her with close follow-up with cardiology as outpatient For NSTEMI, no complaints of chest pain, echocardiogram no significant wall motion abnormalities, EF 75%, EKG did show T wave abnormalities in anterior leads, discharged on aspirin, statin, with a close follow-up cardiology as outpatient She also has a history of a meningioma, 1 cm left frontal convexity calcified meningioma present, follow-up with neurosurgery as outpatient Physical Exam Const: COMMON NORMALS: no acute distress and patient oriented x3 Resp: COMMON NORMALS: normal respiratory effort, No retractions, No use of accessory muscles and clear to auscultation bilaterally AUSCULTATION: clear to auscultation bilaterally Cardio: COMMON NORMALS: regular rate, regular rhythm, S1 normal heart sound present and S2 normal heart sound present RATE: regular rate RHYTHM: regular rhythm HEART SOUNDS: S1 normal heart sound present and S2 normal heart sound present GI: COMMON NORMALS: Normal to inspection, nondistended, normoactive bowel sounds present and non-tender Extremity: COMMON NORMALS: no pedal edema Neuro: COMMON NORMALS: patient oriented x3 Psych: COMMON NORMALS: mental status grossly normal Discharge Data Studies Completed and Pending Completed Studies During Hospitalization Category Date Time Status CT angio chest PE protcl [id number] Stat Cat Scan 10/27/22 16:49 Completed XR chest 1V portable [id number] Urgent Exams 10/27/22 11:37 [place] [id number] Routine Ultrasound 10/27/22 16:01 Completed CV. echo complete* [id number] Routine Ultrasound 10/27/22 16:01 Completed US renal BI* [id number] Routine Ultrasound 10/28/22 14:40 Completed Pending at discharge Category Date Time Status Basic Metabolic Panel AM LABS Lab 10/30/22 04:00 Ordered Basic Metabolic Panel AM LABS Lab 10/31/22 04:00 Ordered Complete Blood Count w/Auto AM LABS Lab 10/30/22 04:00 Ordered Complete Blood Count w/Auto AM LABS Lab 10/31/22 04:00 Ordered Platelet Count Q2D Lab 10/30/22 04:00 Ordered Platelet Count Q2D Lab 11/01/22 04:00 Ordered Respiratory Panel 2 Routine Lab 10/28/22 09:51 Uncollected Sputum Culture and Gram Stain Stat Lab 10/28/22 09:51 Uncollected Radiology Impressions Chest CTA 10/27/22 16:49 IMPRESSION: There is no evidence for a pulmonary artery embolus. There is mild ground-glass opacification in all lobes of the bilateral lungs consistent with pneumonia and/or edema. Renal Ultrasound 10/28/22 14:40 IMPRESSION: 1. Simple cyst in the right kidney. Otherwise unremarkable right kidney. 2. Hypoplastic left kidney. Unable to document blood flow with color Doppler. 3. Ectatic calcified abdominal aorta. Laboratory Results WBC 5.40 10^3/uL (3.29-11.43) 10/29/22 04:11 RBC 3.46 10^6/uL (3.85-5.65) L 10/29/22 04:11 Hgb 10.50 g/dL (11.27-16.99) L 10/29/22 04:11 Hct 33.8 % (36-47) L 10/29/22 04:11 MCV 97.7 fl (85-98) 10/29/22 04:11 MCH 30.3 pg (27-33) 10/29/22 04:11 MCHC 31.1 g/dL (30-55) 10/29/22 04:11 RDW 14.6 % (12.1-15.1) 10/29/22 04:11 Plt Count 180 10^3/cmm (157-399) 10/29/22 04:11 MPV 11.0 fL (7.4-10.4) H 10/29/22 04:11 Neut % (Auto) 53.0 % 10/29/22 04:11 Lymph % (Auto) 29.8 % 10/29/22 04:11 Mcmullen % (Auto) 8.3 % 10/29/22 04:11 Eos % (Auto) 8.0 % 10/29/22 04:11 Baso % (Auto) 0.7 % 10/29/22 04:11 Neut # (Auto) 2.86 10^3/uL (1.8-7.7) 10/29/22 04:11 Lymph # (Auto) 1.6 10^3/uL (0.8-4.8) 10/29/22 04:11 [place]mullen # (Auto) 0.5 10^3/uL (0.2-0.9) 10/29/22 04:11 Eos # (Auto) 0.4 10^3/uL (0.0-0.8) 10/29/22 04:11 Baso # (Auto) 0.0 10^3/uL (0.0-0.1) 10/29/22 04:11 Nucleated RBC % (auto) 0 % 10/29/22 04:11 Nucleated RBCs # 0.0 /100WBC 10/29/22 04:11 APTT 151.4 SECONDS (23.9-36.7) H* 10/29/22 07:00 D-Dimer 3.71 ug/mLFEU (0-0.59) H 10/27/22 11:50 Sodium 143 mmol/L (136-145) 10/29/22 04:11 Potassium 3.9 mmol/L (3.5-5.1) 10/29/22 04:11 Chloride 111 mmol/L (98-107) H 10/29/22 04:11 Carbon Dioxide 26 mmol/L (22-29) 10/29/22 04:11 Anion Gap 9.9 (5-19) 10/29/22 04:11 BUN 21 mg/dL (8-23) 10/29/22 04:11 Creatinine 1.2 mg/dL (0.5-0.9) H 10/29/22 04:11 GFR Calculation Not Reportable 10/29/22 04:11 Glucose 94 mg/dL (65-115) 10/29/22 04:11 Calculated Osmolality 299 mOsm/kg (285-295) H 10/29/22 04:11 Lactic Acid 1.0 mmol/L (0.5-2.2) 10/27/22 11:50 Calcium 8.2 mg/dL (8.5-10.5) L 10/29/22 04:11 Phosphorus 3.8 mg/dL (2.5-4.5) 10/28/22 04:24 Magnesium 2.0 mg/dL (1.7-2.3) 10/28/22 04:24 Total Bilirubin 0.2 mg/dL (0.15-1.2) 10/28/22 04:24 AST 19 U/L (0-32) 10/28/22 04:24 ALT 8 U/L (0-33) 10/28/22 04:24 Alkaline Phosphatase 75 U/L (35-105) 10/28/22 04:24 Creatine Kinase 248 U/L (26-192) H 10/28/22 04:24 CK-MB (CK-2) 8.6 ng/mL (0-5.34) H 10/27/22 11:50 CK-MB (CK-2) Rel Index 1.6 % (0.0-10.4) 10/27/22 11:50 Troponin T Baseline 165 ng/L (0-10) H* 10/27/22 11:50 Troponin T 120 Minute 156.1 ng/L (0-10) H 10/27/22 13:46 Delta Troponin T -8.9 ABS# (0-10) L 10/27/22 13:46 Troponin T Hi Sens 6Hr 141.3 ng/L (0-10) H 10/27/22 18:40 Troponin T Hi Sens 6Hr Delta -23.7 ng/L (0-12) L 10/27/22 18:40 Total Protein 5.6 g/dL (6.6-8.7) L 10/28/22 04:24 Albumin 3.1 g/dL (3.5-5.2) L 10/28/22 04:24 Globulin 2.5 g/dL (1.3-4.6) 10/28/22 04:24 Procalcitonin 0.10 ng/mL (0-0.5) 10/27/22 11:50 TSH 0.10 uIU/mL (0.27-4.20) L 10/28/22 04:24 Free T4 1.77 ng/dL (0.82-1.77) 10/27/22 11:50 Free T3 1.8 PG/ML (2.0-4.4) L 10/27/22 11:50 Urine Color Yellow (Yellow) 10/27/22 15:13 Urine Appearance Clear (CLEAR) 10/27/22 15:13 Urine pH 5 (5-7) 10/27/22 15:13 Ur Specific Diana 1.020 (1.005-1.030) 10/27/22 15:13 Urine Protein Neg (Negative) 10/27/22 15:13 Urine Glucose (UA) Norm (Normal) 10/27/22 15:13 Urine Ketones 1+ (Negative) H 10/27/22 15:13 Urine Blood 3+ (Negative) H 10/27/22 15:13 Urine Nitrate Negative (Negative) 10/27/22 15:13 Urine Bilirubin Neg (Negative) 10/27/22 15:13 Urine Urobilinogen Norm mg/dL (Negative) 10/27/22 15:13 Ur Leukocyte Esterase Negative (Negative) 10/27/22 15:13 Urine RBC 5-10 /hpf (0-2) H 10/27/22 15:13 Urine WBC 0-4 /hpf (0-5) H 10/27/22 15:13 Ur Squamous Epith Cells 0-4 /hpf (0-5) H 10/27/22 15:13 Amorphous Sediment Not Reportable 10/27/22 15:13 Urine Bacteria Trace /hpf (NONE) 10/27/22 15:13 Fine Granular Casts 0-4 /lpf H 10/27/22 15:13 Urine Mucus 2+ /hpf 10/27/22 15:13 Vitals Last Vital Signs Temp 97.9 F 10/29/22 08:00 Pulse 63 10/29/22 08:00 Resp 22 H 10/29/22 08:00 BP 165/76 10/29/22 08:00 Pulse Ox 98 10/29/22 08:00 O2 Del Method Room Air 10/29/22 08:00 Discharge Plan Discharge Patient Disposition: Home Health Service Condition: Stable Prescriptions: New Eliquis DVT-PE Treat 30D Start 5 mg (74 tabs) tablets,dose pack See Rx Instructions .ROUTE .COMPLEX Qty: 74 0RF Rx Instructions: orally per package directions doxycycline hyclate 100 mg tablet 100 mg PO BID 7 Days Qty: 14 0RF aspirin 81 mg capsule 81 mg PO DAILY 30 Days Qty: 30 0RF Continued cholecalciferol (vitamin D3) 1,250 mcg (50,000 unit) tablet 50,000 unit PO .1st and 16th monthly Qty: 2 5RF atorvastatin 10 mg tablet 10 mg PO DAILY Qty: 30 5RF lisinopril 40 mg tablet 40 mg PO DAILY Qty: 30 5RF (DME) DME: Walker Unit See Rx Instructions .ROUTE .MEDSUPPLY Qty: 1 0RF Rx Instructions: Code E0143 and E0156 walker 4 wheels and seat levothyroxine 175 mcg tablet 175 mcg PO DAILY Qty: 90 0RF Rx Instructions: dose increase. Lab needed 11 weeks Discharge Orders: Discharge Order (Routine); Ordered 10/29/22 Ordered By: Reggie Martinez Referrals: [facility] ([facility]) [Outside] Fernando العراقي MD [Physician] - 11/14/22 1:45 pm Marilou Pastrana, SHANK ARCHER-C [Primary Care Provider] - (Please call Marilou Pastrana's Office on Monday at [phone] to schedule a follow up appointment for 2 weeks. Thank you.) Mikey Felix [Referring] - 1 month (Please call Dr. Felix's Office on Monday at [phone] to schedule a follow up appointment for 1 month. Thank you. meningioma) Orquidea Medina DO [Referring] - 2 weeks (Please call Dr. Medina's Office on Monday to schedule a follow up appointment for 2 weeks. Thank you. 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 No reported AMI, CVA or VTE this stay] Coding Level of Care Code 41247 Total time (in minutes) for Discharge: 45 Diagnoses DVT (deep venous thrombosis) I82.409 CLOVIS (acute kidney injury) N17.9 Bradycardia R00.1 Arteriosclerosis I70.90 Essential (primary) hypertension I10 Vitamin D insufficiency E55.9 Goals of care, counseling/discussion Z71.89 Severe protein-calorie malnutrition E43 Physical deconditioning R53.81 Muscle wasting M62.50 Generalized weakness R53.1
[2022-10-29] MEDS: apixaban 5 mg Tablet 10 MG PO (12:55)
--- NOTE | 2022-10-29 17:39 | PC.NURSE ---
faxed darby robbins in [place]
== END 2022-10-29 15:43 | disposition home health service (06) | DRG 280 ==
LOC: ER 13:45 → CSU 10-28 07:08
PROVIDERS: Internal Medicine; Admitting Provider Family Medicine; Emergency Provider Physician Assistant; PCP Nurse Practitioner; Visit Provider Family Medicine
DX: I82.412 Acute embolism and thrombosis of left femoral vein (principal); I21.4 Non-ST elevation (NSTEMI) myocardial infarction; E43 Unspecified severe protein-calorie malnutrition; M62.82 Rhabdomyolysis; Q60.3 Renal hypoplasia, unilateral; N17.9 Acute kidney failure, unspecified; I82.432 Acute embolism and thrombosis of left popliteal vein; I10 Essential (primary) hypertension; E78.2 Mixed hyperlipidemia; Z86.718 Personal history of other venous thrombosis and embolism; E86.0 Dehydration; R00.1 Bradycardia, unspecified; R94.31 Abnormal electrocardiogram [ECG] [EKG]; D32.9 Benign neoplasm of meninges, unspecified; E03.9 Hypothyroidism, unspecified; Z85.828 Personal history of other malignant neoplasm of skin; F17.210 Nicotine dependence, cigarettes, uncomplicated; Z66 Do not resuscitate; E55.9 Vitamin D deficiency, unspecified; I25.10 Atherosclerotic heart disease of native coronary artery without angina pectoris; Z68.22 Body mass index [BMI] 22.0-22.9, adult
CPT/HCPCS: 36415; 71045; 71275; 76770; 80048; 80053; 81001; 81015; 82550; 82553; 83605; 83735; 84100; 84145; 84439; 84443; 84481; 84484; 85025; 85378; 85730; 93005; 93306; 93970; 94664; 96372; 96376; 97161; 97165; C9113; J0456; J0696; J1644; J1650; J7030; J7050; Q9967

== ENCOUNTER → 2022-11-14 13:49 | Outpatient (BNVA) | payer MEDICARE, SELFPAY | PROVIDERS: PCP Nurse Practitioner; Visit Provider Internal Medicine Cardiovascular Disease | DX: I82.402 Acute embolism and thrombosis of unspecified deep veins of left lower extremity (principal); Q60.5 Renal hypoplasia, unspecified; E03.8 Other specified hypothyroidism; D32.0 Benign neoplasm of cerebral meninges; I10 Essential (primary) hypertension; I83.813 Varicose veins of bilateral lower extremities with pain; Z79.01 Long term (current) use of anticoagulants; Z79.82 Long term (current) use of aspirin | CPT/HCPCS: 99203 ==

== ENCOUNTER → 2022-11-29 14:03 | Outpatient (BNVA) | payer MEDICARE, SELFPAY | PROVIDERS: PCP Nurse Practitioner; Visit Provider Nurse Practitioner | DX: R63.4 Abnormal weight loss (principal); I10 Essential (primary) hypertension; Z23 Encounter for immunization; E03.8 Other specified hypothyroidism; R73.9 Hyperglycemia, unspecified | CPT/HCPCS: 80048; 83036; 84443 ==

== ENCOUNTER → 2022-12-13 09:30 | Outpatient (BNVA) | payer MEDICARE, SELFPAY | PROVIDERS: PCP Nurse Practitioner; Referring Provider Nurse Practitioner; Visit Provider Psychiatry & Neurology Neurology | DX: D32.0 Benign neoplasm of cerebral meninges (principal); I65.22 Occlusion and stenosis of left carotid artery; I10 Essential (primary) hypertension | CPT/HCPCS: 99203 ==

== ENCOUNTER 2022-12-20 17:16 | Emergency (ER) | payer MEDICARE, SELFPAY ==
--- NOTE | 2022-12-20 17:19 | XRR_ITS ---
PROCEDURE INFORMATION: Exam: XR Chest Exam date and time: 12/20/2022 5:27 PM Age: 87 years old Clinical indication: Other: N/v dizzy TECHNIQUE: Imaging protocol: Radiologic exam of the chest. Views: 1 view. COMPARISON: CR XR chest 1V portable [id number] 10/27/2022 12:13 PM FINDINGS: Lungs: Mild diffuse interstitial prominence which is probably chronic.. Pleural spaces: Unremarkable. No pleural effusion. No pneumothorax. Heart/Mediastinum: Unremarkable. No cardiomegaly. Bones/joints: Old right 7th rib fracture. No acute findings. XR/XR chest 1V portable [id number] IMPRESSION: No acute findings.
--- NOTE | 2022-12-20 17:20 | ECG_ITS ---
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 Measurements Intervals [place] Rate: 60 P: -27 NV: 137 QRS: 61 QRSD: 88 T: 76 QT: 463 QTc: 465 Interpretive Statements SINUS RHYTHM WITH MARKED SINUS ARRHYTHMIA NONSPECIFIC T-WAVE ABNORMALITY Compared to ECG 10/27/2022 18:05:04 Sinus bradycardia no longer present Possible ischemia no longer present Prolonged QT interval no longer present T-wave abnormality still present Electronically Signed On 12-20-2022 21:17:52 FILM AND VIDEO GRAPHICS DESIGNER by Patrick Krause M.D. [id number]
[2022-12-20 17:23] VITALS: BP 207/86; PULSE 63; RESP 16; TEMP 36.9; O2SAT 98; BMI 18.8
[2022-12-20 17:39] VITALS: BP 202/91; PULSE 67; O2SAT 97
--- NOTE | 2022-12-20 17:39 | ED_ITS ---
HPI - Dizziness General: Chief Complaint: Dizziness Stated Complaint: N/V Dizzy Time Seen by Provider: 12/20/22 17:19 Source: patient and EMS Mode of arrival: EMS Limitations: no limitations History of Present Illness: HPI Narrative: 87-year-old female states that roughly 3 to 4 hours ago started having nausea vomiting states she drank a 7-Up and had vomiting. States she had some dizziness while vomiting she states she did receive Zofran in route and her symptoms are much improved she still has a little bit of nausea but states is not near as bad denies any dizziness currently denies any headache denies any chest pain. Associated symptoms: Reports nausea and vomiting; Denies chest pain, chills or headache(s) Review of Systems Const: Denies: fever(s), chills, body aches or change in appetite Eyes: Denies: blurry vision or eye discomfort ENMT: Denies: throat pain or dental pain Card: Denies: chest pain Resp: Denies: dyspnea GI: Reports: nausea and vomiting; Denies: abdominal pain or diarrhea Musc: Denies: neck pain or back pain Skin/Breast: Denies: rash Neuro: Reports: dizziness; Denies: headache(s) PFSH ED PFSH: Medical History Accelerated hypertension Adult onset hypothyroidism Basal cell carcinoma (BCC) Bradycardia Cigarette smoker Essential (primary) hypertension Meningioma, cerebral Mixed hyperlipidemia Rhabdomyolysis Syncope Vitamin D insufficiency Surgical History History of cataract surgery History of hip surgery right 2018 Family History Other CHF (congestive heart failure) Cancer Diabetes Social History Smoking and tobacco/nicotine status: never used tobacco/nicotine Second hand smoke exposure: No Alcohol intake: never Substance/Drug Use: never Adopted: No Caregiver/support person: No Lives independently: Yes Marital status: Single Number of children: 2 Current occupational status: retired Do you think of yourself as: Straight/Heterosexual Current gender identity: Female Physical Exam Const: COMMON NORMALS: no acute distress, patient oriented x3 and healthy appearing HENMT: COMMON NORMALS: normocephalic and atraumatic HEAD & SCALP: normocephalic and atraumatic Eye: COMMON NORMALS: Equal, round and reactive pupils present and EOMs intact bilaterally PUPIL: Yes Equal, round and reactive pupils present Neck/C-Spine: COMMON NORMALS: full ROM and supple Chest: COMMONS NORMALS: normal inspection of the chest and normal palpation of entire chest wall Resp: COMMON NORMALS: normal respiratory effort, No retractions, No use of accessory muscles and clear to auscultation bilaterally AUSCULTATION: clear to auscultation bilaterally Cardio: COMMON NORMALS: regular rate, regular rhythm and No murmurs present (Cardio) RATE: regular rate RHYTHM: regular rhythm GI: COMMON NORMALS: Normal to inspection, nondistended, normoactive bowel sounds present, Soft to palpation, non-tender and no masses PALPATION: Yes Soft to palpation Extremity: COMMON NORMALS: normal to inspection and full ROM Neuro: COMMON NORMALS: patient oriented x3, moves all extremities and no focal motor deficits Psych: COMMON NORMALS: mental status grossly normal, Normal thought process present and cooperative THOUGHT PROCESS: Normal thought process present Skin: COMMON NORMALS: no rashes or lesions noted and no wounds GENERAL SKIN EXAM: no rashes or lesions noted Course Vital Signs: Vital signs: Vital Signs Temperature 98.5 F 12/20/22 17:23 Pulse Rate 85 12/20/22 18:58 Respiratory Rate 16 12/20/22 17:23 Blood Pressure 172/88 12/20/22 18:58 Pulse Oximetry 98 12/20/22 18:58 Oxygen Delivery Me thod Room Air 12/20/22 18:31 MDM - Dizziness Medical Decision Making Patient presents here with nausea vomiting much improved after Zofran she is hypertensive but is improved as well she does take blood pressure medicine at home she had no dizziness here no signs of a stroke she is stable for discharge we will prescribe her Zofran she is return if worsening. Medical Records I reviewed the patient's medical records. Lab Data I reviewed the patient's lab results. 12/20/22 17:37 12/20/22 17:37 Radiology Impressions Chest X-Ray 12/20/22 17:19 IMPRESSION: No acute findings. Laboratory Results WBC 8.96 10^3/uL (3.29-11.43) 12/20/22 17:37 RBC 4.15 10^6/uL (3.85-5.65) 12/20/22 17:37 Hgb 12.30 g/dL (11.27-16.99) 12/20/22 17:37 Hct 37.9 % (36-47) 12/20/22 17:37 MCV 91.3 fl (85-98) 12/20/22 17:37 MCH 29.6 pg (27-33) 12/20/22 17:37 MCHC 32.5 g/dL (30-55) 12/20/22 17:37 RDW 14.7 % (12.1-15.1) 12/20/22 17:37 Plt Count 230 10^3/cmm (157-399) 12/20/22 17:37 MPV 10.3 fL (7.4-10.4) 12/20/22 17:37 Neut % (Auto) 86.3 % 12/20/22 17:37 Lymph % (Auto) 6.3 % 12/20/22 17:37 [place] % (Auto) 3.5 % 12/20/22 17:37 Eos % (Auto) 3.5 % 12/20/22 17:37 Baso % (Auto) 0.2 % 12/20/22 17:37 Neut # (Auto) 7.74 10^3/uL (1.8-7.7) H 12/20/22 17:37 Lymph # (Auto) 0.6 10^3/uL (0.8-4.8) L 12/20/22 17:37 [place]ver # (Auto) 0.3 10^3/uL (0.2-0.9) 12/20/22 17:37 Eos # (Auto) 0.3 10^3/uL (0.0-0.8) 12/20/22 17:37 Baso # (Auto) 0.0 10^3/uL (0.0-0.1) 12/20/22 17:37 Nucleated RBC % (auto) 0 % 12/20/22 17:37 Nucleated RBCs # 0.0 /100WBC 12/20/22 17:37 Sodium 142 mmol/L (136-145) 12/20/22 17:37 Potassium 4.3 mmol/L (3.5-5.1) 12/20/22 17:37 Chloride 108 mmol/L (98-107) H 12/20/22 17:37 Carbon Dioxide 25 mmol/L (22-29) 12/20/22 17:37 Anion Gap 13.3 (5-19) 12/20/22 17:37 BUN 26 mg/dL (8-23) H 12/20/22 17:37 Creatinine 1.0 mg/dL (0.5-0.9) H 12/20/22 17:37 GFR Calculation Not Reportable 12/20/22 17:37 Glucose 90 mg/dL (65-115) 12/20/22 17:37 Calculated Osmolality 298 mOsm/kg (285-295) H 12/20/22 17:37 Calcium 8.9 mg/dL (8.5-10.5) 12/20/22 17:37 Total Bilirubin 0.3 mg/dL (0.15-1.2) 12/20/22 17:37 AST 20 U/L (0-32) 12/20/22 17:37 ALT 19 U/L (0-33) 12/20/22 17:37 Alkaline Phosphatase 71 U/L (35-105) 12/20/22 17:37 Total Protein 6.5 g/dL (6.6-8.7) L 12/20/22 17:37 Albumin 3.7 g/dL (3.5-5.2) 12/20/22 17:37 Globulin 2.8 g/dL (1.3-4.6) 12/20/22 17:37 Lipase 20 U/L (13-60) 12/20/22 17:37 Urine Color Light yellow (Yellow) 12/20/22 18:20 Urine Appearance Sl hazy (CLEAR) A 12/20/22 18:20 Urine pH 6 (5-7) 12/20/22 18:20 Ur Specific [place] 1.015 (1.005-1.030) 12/20/22 18:20 Urine Protein Neg (Negative) 12/20/22 18:20 Urine Glucose (UA) Norm (Normal) 12/20/22 18:20 Urine Ketones Negative (Negative) 12/20/22 18:20 Urine Blood 2+ (Negative) H 12/20/22 18:20 Urine Nitrate Negative (Negative) 12/20/22 18:20 Urine Bilirubin Neg (Negative) 12/20/22 18:20 Urine Urobilinogen Norm mg/dL (Negative) 12/20/22 18:20 Ur Leukocyte Esterase Negative (Negative) 12/20/22 18:20 Urine RBC 0-4 /hpf (0-2) H 12/20/22 18:20 Urine WBC Rare /hpf (0-5) 12/20/22 18:20 Ur Squamous Epith Cells 0-4 /hpf (0-5) H 12/20/22 18:20 Amorphous Sediment Not Reportable 12/20/22 18:20 Urine Bacteria None /hpf (NONE) 12/20/22 18:20 Urine Mucus None /hpf 12/20/22 18:20 No radiology studies performed this visit EKG Data EKG 1: I personally reviewed and interpreted this EKG as follows: EKG interpretation date: 12/20/22 EKG interpretation time: 17:22 Interpretation: nsr hr [address] or t wave abnormalities qrs 88 qtc 464 Discharge Plan Discharge Patient Disposition: Home Clinical Impression: Vomiting, Hypertension Condition: Stable Prescriptions: New ondansetron 4 mg tablet,disintegrating 4 mg PO Q6H PRN (Reason: nausea and vomiting) Qty: 14 0RF No Action Xarelto 20 mg tablet 20 mg PO DAILY Qty: 30 2RF Rx Instructions: must administer with evening meal levothyroxine 100 mcg tablet 100 mcg PO DAILY Qty: 90 0RF Rx Instructions: decrease dose atorvastatin 10 mg tablet 10 mg PO DAILY Qty: 30 5RF lisinopril 40 mg tablet 40 mg PO DAILY Qty: 30 5RF Discharge Orders: Discharge ED (Routine); Ordered 12/20/22 Ordered By: Bambi Belcher Referrals: Marilou Pastrana, PRIZE FIGHTER-C [Primary Care Provider] - 1-3 days Discharge Diet: Advance as tolerated Discharge Activity: Resume usual activity Patient Instructions: Acute Nausea and Vomiting (ED) Coding Level of Care Code ED Computer Engineering Professor for Srinivas Henriquez
[2022-12-20] MEDS: hyDRALAzine 20 mg/mL INJ 1 mL 10 MG IVP ×2 (17:40→18:28)
[2022-12-20] MEDS: sodium chloride 0.9% 1,000 ML 999 ML IV (17:40)
[2022-12-20 17:48] LABS: Basophils % 0.2 %; Eosinophils # 0.3 10^3/uL (0.0-0.8); Eosinophils % 3.5 %; Hematocrit 37.9 % (36-47); Lymphocytes # 0.6 10^3/uL (0.8-4.8); Lymphocytes % 6.3 %; Mean Corpuscular HGB Conc 32.5 g/dL (30-55); Mean Corpuscular Hemoglobin 29.6 pg (27-33); Mean Corpuscular Volume 91.3 fl (85-98); Mean Platelet Volume 10.3 fL (7.4-10.4); Monocytes # 0.3 10^3/uL (0.2-0.9); Monocytes % 3.5 %; Neutrophils # 7.74 10^3/uL (1.8-7.7); Neutrophils % 86.3 %; Nucleated Red Blood Cells % 0 %; Platelet Count 230 10^3/cmm (157-399); Red Blood Count 4.15 10^6/uL (3.85-5.65); Red Cell Distribution Width 14.7 % (12.1-15.1); White Blood Count 8.96 10^3/uL (3.29-11.43)
[2022-12-20 18:09] VITALS: BP 190/91; PULSE 68; O2SAT 98
[2022-12-20 18:14] LABS: Alanine Aminotransferase 19 U/L (0-33); Albumin Level 3.7 g/dL (3.5-5.2); Alkaline Phosphatase 71 U/L (35-105); Aspartate Amino Transferase 20 U/L (0-32); Chloride 108 mmol/L (98-107); Globulin 2.8 g/dL (1.3-4.6); Glucose 90 mg/dL (65-115); Lipase 20 U/L (13-60); Potassium 4.3 mmol/L (3.5-5.1); Sodium 142 mmol/L (136-145); Total Protein 6.5 g/dL (6.6-8.7)
[2022-12-20 18:28] LABS: Anion Gap 13.3 (5-19); Blood Urea Nitrogen 26 mg/dL (8-23); Calcium 8.9 mg/dL (8.5-10.5); Carbon Dioxide 25 mmol/L (22-29); Osmolality Calculated 298 mOsm/kg (285-295); Total Bilirubin 0.3 mg/dL (0.15-1.2)
[2022-12-20 18:31] VITALS: BP 191/87; PULSE 69; O2SAT 99
[2022-12-20 18:37] LABS: Add Urine Microscopic? YES; Bilirubin Urine Neg (Negative); Blood Urine 2+ (Negative); Glucose Urine UA Norm (Normal); Ketones Urine Negative (Negative); Leukocyte Esterase Urine Negative (Negative); Nitrate Urine Negative (Negative); Protein Urine Neg (Negative); Specific Gravity, Urine 1.015 (1.005-1.030); Urine Appearance SL Hazy (CLEAR); Urine Color Light yellow (Yellow); Urobilinogen Urine Norm (Negative); pH Urine 6 (5-7)
[2022-12-20 18:54] LABS: Add Urine Culture? No; RBC Urine 0-4 /hpf (0-2); Squamous Epithelial Cell Urine 0-4 /hpf (0-5); WBC Urine RARE /hpf (0-5)
[2022-12-20] MEDS: ondansetron 4 MG Tablet PO (18:56)
[2022-12-20 18:58] VITALS: BP 172/88; PULSE 85; O2SAT 98
== END 2022-12-20 18:59 | disposition home or self-care (01) ==
PROVIDERS: Emergency Provider Emergency Medicine; PCP Nurse Practitioner
DX: R11.11 Vomiting without nausea (principal); I10 Essential (primary) hypertension; E78.2 Mixed hyperlipidemia
CPT/HCPCS: 71045; 80053; 81001; 83690; 85025; 93005; 96361; 96374; 96375; 96376; 99285; J0360; J7030; Q0162

== ENCOUNTER 2022-12-23 07:49 | Inpatient (IN) | payer MEDICARE, SELFPAY ==
[2022-12-23] VITALS (17 sets, daily range): BP systolic 136–191; BP diastolic 62–95; PULSE 62–74; RESP 14–19; TEMP 36.6–36.9; O2SAT 94–100; BMI 17.7
--- NOTE | 2022-12-23 | XRR_ITS ---
PROCEDURE INFORMATION: Exam: XR Pelvis Exam date and time: 12/23/2022 8:08 AM Age: 87 years old Clinical indication: Hip pain; Left hip; Additional info: Trauma, included in hip charge TECHNIQUE: Imaging protocol: Radiologic exam of the pelvis. Views: 1 or 2 view. COMPARISON: CR XR hip LT 2-3V wo/w pel* [id number] 12/23/2022 8:08 AM FINDINGS: Bones/joints: Transverse displaced subcapital fracture of the left femoral neck. There is retraction of the distal component. Incidentally noted is a metallic right hip arthroplasty in good position. Soft tissues: Metallic surgical clips seen in the upper of central pelvis. IMPRESSION: 1. Transverse displaced subcapital fracture left femoral neck 2. Metallic right hip arthroplasty in good position. 3. Metallic valerie are upper central pelvis 4. Otherwise negative examination of the pelvis MTDD
--- NOTE | 2022-12-23 07:59 | XR_ITS ---
WS: [id number] Left hip, 2 views, 12/23/2022 Clinical Data: fall Comparison: Pelvis and right hip, 11/25/2018. Findings: There is a fracture of the left femoral neck. The left femoral head remains within the acetabulum. Th e right hip arthroplasty is seen. The adjacent pelvis is unremarkable. Impression: Left femoral neck fracture.
--- NOTE | 2022-12-23 08:03 | ED_ITS ---
HPI - Extremity Problem General: Chief complaint: Extremity Injury, Lower Stated complaint: fall Time Seen by Provider: 12/23/22 07:52 Source: patient Mode of arrival: EMS History of Present Illness: 87-year-old female brought in by EMS. She slipped and fell off the end of the bed this morning. Evidently initially she told EMS she fell last night. She told she fell this morning after she had folded and put away some close she went to sit on the end of the bed and then slipped off the end of the bed landed on the floor and could not get up. She has complaint of pain in her left hip. She is not able to move the left leg. She was given fentanyl and Zofran in route. She denies striking her head denies loss of consciousness. Complaint: joint pain Onset (ago): unknown Associated symptoms: Deny chest pain, fever(s) or rash Review of Systems Const: Denies: fever(s) or chills Card: Denies: chest pain Resp: Denies: dyspnea GI: Denies: abdominal pain : Denies: dysuria, urinary frequency or urinary urgency Musc: Reports: joint pain (L hip); Denies: neck pain or back pain Skin/Breast: Denies: rash PFSH ED PFSH: Medical History (Updated 12/29/22 @ 07:08 by Terrance Hawk DO) Accelerated hypertension Adult onset hypothyroidism Basal cell carcinoma (BCC) Bradycardia Cigarette smoker DVT (deep venous thrombosis) Essential (primary) hypertension Meningioma, cerebral Mixed hyperlipidemia Rhabdomyolysis Syncope Vitamin D insufficiency Surgical History History of cataract surgery History of hip surgery right 2018 Family History Other CHF (congestive heart failure) Cancer Diabetes Social History Smoking and tobacco/nicotine status: never used tobacco/nicotine Second hand smoke exposure: No Alcohol intake: never Substance/Drug Use: never Adopted: No Caregiver/support person: No Lives independently: Yes Marital status: Single Number of children: 2 Current occupational status: retired Do you think of yourself as: Straight/Heterosexual Current gender identity: Female Physical Exam Const: GENERAL APPEARANCE: cooperative ORIENTATION/CONSCIOUSNESS: Yes awake HENMT: COMMON NORMALS: normocephalic, atraumatic and hearing grossly normal bilaterally HEAD & SCALP: normocephalic and atraumatic Resp: COMMON NORMALS: normal respiratory effort, No retractions, No use of accessory muscles and clear to auscultation bilaterally AUSCULTATION: clear to auscultation bilaterally Cardio: COMMON NORMALS: regular rate, regular rhythm and No murmurs present (Cardio) RATE: regular rate RHYTHM: regular rhythm GI: COMMON NORMALS: Soft to palpation and No hepatosplenomegaly present AUSCULTATION: Yes normoactive bowel sounds PALPATION: Yes Soft to palpation, No Tenderness to palpation present (GI), No Guarding due to palpation present (GI) and Yes No hepatosplenomegaly present Extremity: COMMON NORMALS: normal to inspection, capillary refill normal, no c lubbing, cyanosis or edema, no calf tenderness and no pedal edema OTHER: Pain in the left hip unable to move the left leg. Pulses normal sensation lower extremity normal. Skin: COMMON NORMALS: no rashes or lesions noted GENERAL SKIN EXAM: no rashes or lesions noted Course Vital Signs: Vital signs: Vital Signs Temperature 97.5 F L 12/26/22 15:46 Pulse Rate 82 12/26/22 15:46 Respiratory Rate 19 H 12/26/22 15:46 Blood Pressure 149/77 12/26/22 15:46 Pulse Oximetry 96 12/26/22 15:46 Oxygen Delivery Me thod Room Air 12/25/22 12:00 Oxygen Flow Rate 7 12/23/22 16:25 MDM - Extremity (Nontraumatic) Medical Decision Making Mildly displaced left femoral neck fracture. Patient recently diagnosed DVT and is on Xarelto last took last evening. Discussed with Ortho also discussed with hospitalist will admit orders written. Medical Records I reviewed the patient's medical records. Lab Data I reviewed the patient's lab results. 12/25/22 04:40 12/25/22 04:40 Laboratory Results WBC 9.89 10^3/uL (3.29-11.43) 12/23/22 08:28 RBC 4.33 10^6/uL (3.85-5.65) 12/23/22 08:28 Hgb 12.70 g/dL (11.27-16.99) 12/23/22 08:28 Hct 39.2 % (36-47) 12/23/22 08: MCV 90.5 fl (85-98) 12/23/22 08: MCH 29.3 pg (27-33) 12/23/22 08: MCHC 32.4 g/dL (30-55) 12/23/22 08: RDW 14.7 % (12.1-15.1) 12/23/22 08:28 Plt Count 197 10^3/cmm (157-399) 12/23/22 08:28 MPV 10.3 fL (7.4-10.4) 12/23/22 08:28 Neut % (Auto) 87.0 % 12/23/22 08: Lymph % (Auto) 6.7 % 12/23/22 08: [place] % (Auto) 5.7 % 12/23/22 08: Eos % (Auto) 0.0 % 12/23/22 08: Baso % (Auto) 0.1 % 12/23/22 08: Neut # (Auto) 8.61 10^3/uL (1.8-7.7) H 12/23/22 08:28 Lymph # (Auto) 0.7 10^3/uL (0.8-4.8) L 12/23/22 08:28 [place] # (Auto) 0.6 10^3/uL (0.2-0.9) 12/23/22 08:28 Eos # (Auto) 0.0 10^3/uL (0.0-0.8) 12/23/22 08:28 Baso # (Auto) 0.0 10^3/uL (0.0-0.1) 12/23/22 08: Nucleated RBC % (auto) 0 % 12/23/22 08: Nucleated RBCs # 0.0 /100WBC 12/23/22 08:28 PT 16.80 SECONDS (12.1-14.9) H 12/23/22 08:28 INR 1.31 (0.8-1.2) H 12/23/22 08:28 APTT 39.6 SECONDS (23.9-36.7) H 12/23/22 08:28 Sodium 139 mmol/L (136-145) 12/23/22 08:28 Potassium 3.8 mmol/L (3.5-5.1) 12/23/22 08:28 Chloride 105 mmol/L (98-107) 12/23/22 08:28 Carbon Dioxide 23 mmol/L (22-29) 12/23/22 08:28 Anion Gap 14.8 (5-19) 12/23/22 08:28 BUN 24 mg/dL (8-23) H 12/23/22 08:28 Creatinine 1.1 mg/dL (0.5-0.9) H 12/23/22 08:28 GFR Calculation Not Reportable 12/23/22 08:28 Glucose 131 mg/dL (65-115) H 12/23/22 08:28 Calculated Osmolality 294 mOsm/kg (285-295) 12/23/22 08:28 Calcium 9.3 mg/dL (8.5-10.5) 12/23/22 08:28 Total Bilirubin 0.3 mg/dL (0.15-1.2) 12/23/22 08:28 AST 24 U/L (0-32) 12/23/22 08:28 ALT 19 U/L (0-33) 12/23/22 08:28 Alkaline Phosphatase 73 U/L (35-105) 12/23/22 08:28 Creatine Kinase 411 U/L (26-192) H* 12/23/22 08:28 Total Protein 6.8 g/dL (6.6-8.7) 12/23/22 08:28 Albumin 3.7 g/dL (3.5-5.2) 12/23/22 08:28 Globulin 3.1 g/dL (1.3-4.6) 12/23/22 08:28 All radiology interpretation(s) finalized by discharge Discharge Plan Discharge Patient Disposition: Admitted As Inpatient Admit Provider: Magda Wheeler Clinical Impression: Closed fracture of neck of left femur, DVT (deep venous thrombosis), Poor short term memory Condition: Stable Coding Level of Care Code ED Family Resource Specialist for Srinivas Henriquez
--- NOTE | 2022-12-23 08:13 | PC.PHAR ---
pt brought in med bottles except for her multivitamin-pt states she only takes 4 prescription medications and a multivitamin otc-
--- NOTE | 2022-12-23 08:40 | ECG_ITS ---
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 Measurements Intervals [place] Rate: 72 P: 98 HI: 149 QRS: 61 QRSD: 88 T: 74 QT: 478 QTc: 525 Interpretive Statements Multifocal atrial rhythm MINIMAL VOLTAGE CRITERIA FOR LVH, CONSIDER NORMAL VARIANT [MEETS CRITERIA IN ONE OF: R(aVL), S(V1), R(V5), R(V5/V6)+S(V1)] NONSPECIFIC T-WAVE ABNORMALITY PROLONGED QT INTERVAL CRITICAL TEST RESULT Compared to ECG 12/20/2022 17:22:44 Prolonged QT interval now present Sinus arrhythmia no longer present T-wave abnormality still present Electronically Signed On 12-23-2022 20:47:53 DOCK WORKER by Cyndee Mancilla M.D. [id number]
--- NOTE | 2022-12-23 08:40 | XR_ITS ---
WS: [id number] Portable AP semiupright chest, 12/23/2022 Clinical Data: dyspnea/cough Comparison: Portable chest, 12/20/2022 Findings: No nodules, masses or effusions are seen. The heart is normal. The pulmonary vascularity is not increased. No pneumonia or pneumothorax is seen. The aortic arch and descending thoracic aorta s how calcification and tortuosity. There is an old right seventh rib fracture. The patient's clothing obscures only minimal detail. Impression: Atherosclerosis.
[2022-12-23 08:42] LABS: Basophils % 0.1 %; Hematocrit 39.2 % (36-47); Lymphocytes # 0.7 10^3/uL (0.8-4.8); Lymphocytes % 6.7 %; Mean Corpuscular HGB Conc 32.4 g/dL (30-55); Mean Corpuscular Hemoglobin 29.3 pg (27-33); Mean Corpuscular Volume 90.5 fl (85-98); Mean Platelet Volume 10.3 fL (7.4-10.4); Monocytes # 0.6 10^3/uL (0.2-0.9); Monocytes % 5.7 %; Neutrophils # 8.61 10^3/uL (1.8-7.7); Nucleated Red Blood Cells % 0 %; Platelet Count 197 10^3/cmm (157-399); Red Blood Count 4.33 10^6/uL (3.85-5.65); Red Cell Distribution Width 14.7 % (12.1-15.1); White Blood Count 9.89 10^3/uL (3.29-11.43)
[2022-12-23 08:54] LABS: INR 1.31 (0.8-1.2)
[2022-12-23 08:55] LABS: Partial Thromboplastin Time 39.6 SECONDS (23.9-36.7)
[2022-12-23 08:59] LABS: Alanine Aminotransferase 19 U/L (0-33); Albumin Level 3.7 g/dL (3.5-5.2); Alkaline Phosphatase 73 U/L (35-105); Anion Gap 14.8 (5-19); Aspartate Amino Transferase 24 U/L (0-32); Blood Urea Nitrogen 24 mg/dL (8-23); Calcium 9.3 mg/dL (8.5-10.5); Carbon Dioxide 23 mmol/L (22-29); Chloride 105 mmol/L (98-107); Globulin 3.1 g/dL (1.3-4.6); Glucose 131 mg/dL (65-115); Osmolality Calculated 294 mOsm/kg (285-295); Potassium 3.8 mmol/L (3.5-5.1); Sodium 139 mmol/L (136-145); Total Bilirubin 0.3 mg/dL (0.15-1.2); Total Protein 6.8 g/dL (6.6-8.7)
[2022-12-23 09:03] LABS: Creatine Phosphokinase 411 U/L (26-192)
--- NOTE | 2022-12-23 09:20 | P.CONIM_ITS ---
Providers/Reason For Consult Consulting Physician/Specialty*: orthopedics Reason for Consult*: Left hip pain Primary Care Provider: STEFFANY White History of Present Illness History of Present Illness Amy Davies is a 87 year old female Who fell at home, reports slipping and fell off the end of the bed this morning.? She felt immediate pain in her left hip that is sharp stabbing constant in nature. Any movement made it much worse. She was transported to the emergency room where x-rays confirmed a left hip fracture orthopedics was then consulted and she was evaluated in room 5 in the emergency room.She is unable to recall who fixed her right hip. She denies any neck or back pain. Pain has been localized to her left hip. Rest gives her some temporary relief. Medications is helped. She denies any specific loss of consciousness. Reports the pain is 5 out of 10 on the pain scale. Review of Systems Const: Denies: fever(s) or chills Card: Denies: chest pain Resp: Denies: dyspnea GI: Denies: abdominal pain : Denies: dysuria, urinary frequency or urinary urgency Musc: Reports: joint pain (L hip); Denies: neck pain or back pain Skin/Breast: Denies: rash Medications/Allergies Home Medications Medication Instructions Recorded Confirmed Last Taken Type atorvastatin 10 mg tablet 10 mg PO DAILY #30 tabs 08/11/22 12/23/22 10/27/22 Rx lisinopril 40 mg tablet 40 mg PO DAILY #30 tabs 09/20/22 12/23/22 10/27/22 Rx rivaroxaban 20 mg tablet (Xarelto) 20 mg PO DAILY #30 tabs 11/01/22 12/23/22 Unknown Rx levothyroxine 100 mcg tablet 100 mcg PO DAILY #90 tabs 11/30/22 12/23/22 Unknown Rx ondansetron 4 mg disintegrating 4 mg PO Q6H PRN nausea and 12/20/22 12/23/22 Unknown Rx tablet vomiting #14 tabs multivitamin 1 tab PO DAILY 12/23/22 12/23/22 Unknown History Allergies Allergy/AdvReac Type Severity Reaction Status Date / Time No Known Allergies Allergy Verified 12/23/22 08:11 PFSH Acute PFSH: Medical History Accelerated hypertension Adult onset hypothyroidism Basal cell carcinoma (BCC) Bradycardia Cigarette smoker Essential (primary) hypertension Meningioma, cerebral Mixed hyperlipidemia Rhabdomyolysis Syncope Vitamin D insufficiency Surgical History History of cataract surgery History of hip surgery right 2018 Family History Other CHF (congestive heart failure) Cancer Diabetes Social History Smoking and tobacco/nicotine status: never used tobacco/nicotine Second hand smoke exposure: No Alcohol intake: never Substance/Drug Use: never Adopted: No Caregiver/support person: No Lives independently: Yes Marital status: Single Number of children: 2 Current occupational status: retired Do you think of yourself as: Straight/Heterosexual Current gender identity: Female Vitals/I&O/Wt Last Vital Signs Temp 98.4 F 12/23/22 07:53 Pulse 68 12/23/22 07:53 Resp 18 12/23/22 07:53 BP 181/78 12/23/22 08:03 Pulse Ox 95 12/23/22 08:03 O2 Del Method Room Air 12/23/22 07:53 Weight last 48 hrs Weight 120 lb Physical Exam Narrative: Movement making it much worse which is sharp stabbing constant in nature. Patient is alert and orient x3 she has good general appearance normal mood and affect. She has obvious shortening and external rotation of the left hip. She has positive logroll. She has pain with palpation over the left hip. She has well-healed incision over the right from previous hip replacement surgery. Skin is clear warm femoral good cap refill dorsalis pedis posterior pulses are palpable. Calves are supple no medial thigh tenderness. She has no palpable p ain in the lumbar thoracic or cervical spine full range of motion both upper extremities at the shoulders elbows and wrist hands warm good cap refill radial pulses are palpable. Full range of motion of the cervical spine. HENMT: COMMON NORMALS: normocephalic and atraumatic HEAD & SCALP: normocephalic and atraumatic Resp: COMMON NORMALS: normal respiratory effort Cardio: COMMON NORMALS: regular rate and regular rhythm RATE: regular rate RHYTHM: regular rhythm GI: COMMON NORMALS: Soft to palpation and non-tender PALPATION: Yes Soft to palpation : COMMON NORMALS: Yes no CVA tenderness BLADDER/KIDNEY EXAM: Yes no CVA tenderness Back/Pelvis: COMMON NORMALS: no CVA tenderness Psych: COMMON NORMALS: mental status grossly normal and cooperative Urinary Catheter Management: Banks: Cath Placed During This Visit: no Data 12/23/22 08:28 12/23/22 08:28 A&P Assessment and plan (1) Femoral neck fracture: Discussed with the patient she has displaced left femoral neck fracture and require hemiarthroplasty. Explained the risks and benefits of the procedure was good but meant to bleed infection nerve damage continued hip pain need for further surgery reaction anesthesia. She understands these risks wished to proceed. Discussed this with Dr. Puente he agrees above-stated plan. We will continue to keep her n.p.o. More than 50% of the time spent with the patient today involved coordination of care, counseling and discussion of conservative versus surgical treatment options. Total amount of time spent with the patient was 32 minutes. Qualifiers: Encounter type: initial encounter Fracture type: closed Laterality: left Qualified Code(s): S72.002A - Fracture of unspecified part of neck of left femur, initial encounter for closed fracture Coding Level of Care Code Acute Code for Chg Fwd Diagnoses Femoral neck fracture S72.002A Encounter type: initial encounter Fracture type: closed Laterality: left Time Spent (min) 32
[2022-12-23 09:45] LABS: Add Urine Culture? Yes; Add Urine Microscopic? YES; Bacteria Urine TRACE /hpf; Bilirubin Urine Neg (Negative); Blood Urine 3+ (Negative); Glucose Urine UA Norm (Normal); Ketones Urine Negative (Negative); Leukocyte Esterase Urine Negative (Negative); Nitrate Urine Negative (Negative); Protein Urine Neg (Negative); RBC Urine 0-4 /hpf (0-2); Specific Gravity, Urine 1.005 (1.005-1.030); Squamous Epithelial Cell Urine 0-4 /hpf (0-5); Urine Appearance Clear (CLEAR); Urine Color Yellow (Yellow); Urobilinogen Urine Norm (Negative); WBC Urine 40-55 /hpf (0-5); pH Urine 5 (5-7)
[2022-12-23] MEDS: ceFAZolin 2,000 MG in sodium chloride 0.9% (plus) 50 ML 100 MG IV ×3 (09:50→23:40)
--- NOTE | 2022-12-23 09:54 | PC.NURSE ---
HARRY EXPLAINED SURGERY NEED TO PT. PT SIGNED CONSENT FOR SURGERY AND ANESTHESIA. FAMILY WAS PRESENT.
--- NOTE | 2022-12-23 10:05 | PM.HP ---
Providers/Chief Complaint Admitting Physician: Cj Burnette MD Primary Care Provider: NAYLA WhiteC Chief Complaint: fall History of Present Illness Amy Davies is a 87 year old female with history of cognitive deficit presenting from home. She reports she slid off the bed sometime in the night and started having left hip pain. Family found her this morning. She denies any other pain or any other injuries. Several days ago, on the she had nausea and vomiting. Apparently the entire family was sick at that time. No fevers documented, no shortness of breath, no dizziness, no chest pain. Took her Xarelto last night. This was initiated for DVT that was diagnosed October 27. She has been compliant with treatment. Review of Systems General: Reports: 10 or more systems reviewed and unremarkable except in HPI and below Card: Denies: chest pain Resp: Denies: dyspnea GI: Denies: hematemesis, hematochezia or melena Medications/Allergies Home Medications Medication Instructions Recorded Confirmed Last Taken Type atorvastatin 10 mg tablet 10 mg PO DAILY #30 tabs 08/11/22 12/23/22 10/27/22 Rx lisinopril 40 mg tablet 40 mg PO DAILY #30 tabs 09/20/22 12/23/22 10/27/22 Rx rivaroxaban 20 mg tablet (Xarelto) 20 mg PO DAILY #30 tabs 11/01/22 12/23/22 Unknown Rx levothyroxine 100 mcg tablet 100 mcg PO DAILY #90 tabs 11/30/22 12/23/22 Unknown Rx ondansetron 4 mg disintegrating 4 mg PO Q6H PRN nausea and 12/20/22 12/23/22 Unknown Rx tablet vomiting #14 tabs multivitamin 1 tab PO DAILY 12/23/22 12/23/22 Unknown History Allergies Allergy/AdvReac Type Severity Reaction Status Date / Time No Known Allergies Allergy Verified 12/23/22 08:11 PFSH Acute PFSH: Medical History (Updated 12/23/22 @ 10:13 by Cj Burnette MD) Accelerated hypertension Adult onset hypothyroidism Basal cell carcinoma (BCC) Bradycardia Cigarette smoker DVT (deep venous thrombosis) Essential (primary) hypertension Meningioma, cerebral Mixed hyperlipidemia Rhabdomyolysis Syncope Vitamin D insufficiency Surgical History History of cataract surgery History of hip surgery right 2018 Family History Other CHF (congestive heart failure) Cancer Diabetes Social History Smoking and tobacco/nicotine status: never used tobacco/nicotine Second hand smoke exposure: No Alcohol intake: never Substance/Drug Use: never Adopted: No Caregiver/support person: No Lives independently: Yes Marital status: Single Number of children: 2 Current occupational status: retired Do you think of yourself as: Straight/Heterosexual Current gender identity: Female Vitals/I&O/Wt Last Vital Signs Temp 98.3 F 12/23/22 09:53 Pulse 74 12/23/22 09:53 Resp 18 12/23/22 09:53 BP 191/84 12/23/22 09:53 Pulse Ox 97 12/23/22 09:53 O2 Del Method Room Air 12/23/22 09:53 Weight last 48 hrs Weight 54.431 kg Physical Exam Narrative: General exam is a white female, reporting she has left hip pain when she moves. HEENT: Atraumatic and normocephalic. Pupils equally round. Oropharynx clear. Neck is supple no lymphadenopathy thyromegaly Cardiovascular regular rate and rhythm, heart sounds distant Lungs clear no wheezing or crackles Abdomen is soft with positive bowel sounds. No obvious organomegaly exams deferred Extremities no cyanosis clubbing or edema. Varicose veins are noted lower extremities. Left leg is externally rotated and shortened Skin no rash Neuro: Some confusion, but conversant and able to relate some history. Urinary Catheter Management: Banks: Cath Placed During This Visit: no Data 12/23/22 08:28 12/23/22 08:28 Other Labs: INR 1.31 LFTs normal CK4 11 Calcium, albumin normal Urinalysis with 40-55 whites, 0-4 reds Chest x-ray which I reviewed demonstrates no infiltrate Hip and pelvis x-ray demonstrates left hip fracture. I reviewed this as well. Urine culture has been ordered Echo October 27 demonstrated preserved EF, 1/4 diastolic dysfunction, LVH EKG demonstrates sinus rhythm, occasional premature atrial contracture, normal axis, and prolonged QT interval is noted. Nonspecific ST-T wave changes. Changes consistent with LVH. A&P Assessment and plan (1) Femoral neck fracture: Patient with a left femoral neck fracture after a mechanical fall NPO. Discussed with surgery that she recently took her Xarelto. Their intention is to take to surgery today, that bleeding risk with the type of surgery proposed is acceptable. Pain control Telemetry I discussed risk benefits and need for surgery as well. Will need long-term facility placement for hip fracture rehabilitation CBC, BMP in the morning Qualifiers: Encounter type: initial encounter Fracture type: closed Laterality: left Qualified Code(s): S72.002A - Fracture of unspecified part of neck of left femur, initial encounter for closed fracture (2) DVT (deep venous thrombosis): Patient with history of DVT in October 2013. She has been on anticoagulation since then. She will need to restart anticoagulation following surgery. (3) Prolonged QT interval: Prolonged QT intervals noted on initial EKG. Will repeat this in the morning. No current medications noted that would prolong QT interval. Check magnesium level. Avoid medications that could prolong QT. (4) Poor short term memory: Patient with history of poor short-term memory/cognitive deficits/dementia. Monitor closely in the hospital. High risk for delirium. Plan UTI. Rocephin initiated. Urine culture. History of hypertension. Hold HALIMA inhibitor until reevaluated blood pressure tomorrow morning secondary to surgery today Other medical problems as listed in past medical history Full code On Xarelto, last dose last night, sufficient for DVT prophylaxis. Will be addressed by surgery following surgery as well. Will need pharmacologic and SCDs Attestations Medical Necessity Statement*: Will need greater than 2 midnight stay for evaluation and treatment of hip fracture Diagnoses Femoral neck fracture S72.002A Encounter type: initial encounter Fracture type: closed Laterality: left DVT (deep venous thrombosis) I82.409 Prolonged QT interval R94.31 Poor short term memory R41.3 Time Spent (min) 49
[2022-12-23 10:47] LABS: Magnesium 1.8 mg/dL (1.7-2.3)
[2022-12-23] MEDS: sodium chloride 0.9% 1,000 ML 75 ML IV (12:22)
--- NOTE | 2022-12-23 13:24 | ANES.PREANE2 ---
Pre-Anesthetic Assessment Height/Weight: Height 1.75 m Weight 54.431 kg Temp Pulse Resp BP Pulse Ox O2 Del Method 98 F 69 17 185/89 95 Room Air 12/23/22 11:29 12/23/22 11:29 12/23/22 11:29 12/23/22 11:29 12/23/22 11:29 12/23/22 11:28 Preop Diagnosis: Left femoral neck fracture Operation Date: 12/23/22 14:00 Proposed Procedures p Hemiarthroplasty Hip(Left) - Fransico Puente, DO Familial anesthetic complications: NONE Was Beta Hernando taken within 24 hours: N/A Was Clonidine taken within 24 hours: N/A Last intake: 12/22/22- 1800 SOLIDS AND LIQUIDS Social No alcohol and No tobacco Exam alert, oriented x 3, clear to auscultation bilaterally and regular rate & rhythm Airway Submandibular: within normal limits Cervical ROM: within normal limits Mallampati: Class II Dentition: false Pulmonary None reported CV/HEM Arrythmia (BRADYCARDIA, prolonged QT), Deep Vein Thrombosis (Xarelto 12/22 INR 1.3), Hypertension and Peripheral Vascular Disease ECHO 11/05 Normal left ventricular size and systolic function, EF 75 %. No ?regional wall motion abnormalities.? Moderate left ventricular ?hypertrophy. Grade I/IV diastolic dysfunction (abnormal ?relaxation filling pattern), normal to mildly elevated filling ?pressures. ?Mildly increased left atrial size. ?Thickened aortic valve. Moderate aortic valve calcification. ?Trace mitral valve regurgitation. ?Mild pulmonary valve regurgitation. ?Estimated pulmonary artery peak systolic pressure 26 mmHg ?There is no pericardial effusion. ?There are no intracardiac masses. ?Compared to the study from 09/11/2022, there may not be a ?significant change Chronic Renal Insufficiency (creatinine 1.1) Hepatic None reported GI None reported Metabolic Hyperlipidemia and Thyroid Disease Musc/skel Weakness 12/20/22: ED VISIT N/V weakness syncope. Neuropsych Deficit (short term memory) Anesthetic Plan ASA status: 3 Anesthesia: General Medications/Allergies Home Medications Medication Instructions Recorded Confirmed Last Taken Type atorvastatin 10 mg tablet 10 mg PO DAILY #30 tabs 08/11/22 12/23/22 10/27/22 Rx lisinopril 40 mg tablet 40 mg PO DAILY #30 tabs 09/20/22 12/23/22 10/27/22 Rx rivaroxaban 20 mg tablet (Xarelto) 20 mg PO DAILY #30 tabs 11/01/22 12/23/22 Unknown Rx levothyroxine 100 mcg tablet 100 mcg PO DAILY #90 tabs 11/30/22 12/23/22 Unknown Rx ondansetron 4 mg disintegrating 4 mg PO Q6H PRN nausea and 12/20/22 12/23/22 Unknown Rx tablet vomiting #14 tabs multivitamin 1 tab PO DAILY 12/23/22 12/23/22 Unknown History Allergies Allergy/AdvReac Type Severity Reaction Status Date / Time No Known Allergies Allergy Verified 12/23/22 08:11 Current Medications Generic Name Dose Route Start Last Admin Trade Name Freq PRN Reason Stop Dose Admin Sodium Chloride 1,000 mls @ 75 mls/hr 12/23/22 11:26 12/23/22 12:22 Sodium Chloride 0.9% IV 75 mls/hr .[id number] DAMI Administration PFSH Anesthesia Medical History (Updated 12/23/22 @ 10:13 by Cj Burnette MD) Accelerated hypertension Adult onset hypothyroidism Basal cell carcinoma (BCC) Bradycardia Cigarette smoker DVT (deep venous thrombosis) Essential (primary) hypertension Meningioma, cerebral Mixed hyperlipidemia Rhabdomyolysis Syncope Vitamin D insufficiency Surgical History History of cataract surgery History of hip surgery right 2018 Family History Other CHF (congestive heart failure) Cancer Diabetes Social History Smoking and tobacco/nicotine status: never used tobacco/nicotine Second hand smoke exposure: No Alcohol intake: never Substance/Drug Use: never Adopted: No Caregiver/support person: No Lives independently: Yes Marital status: Single Number of children: 2 Current occupational status: retired Do you think of yourself as: Straight/Heterosexual Current gender identity: Female Data Anesthesia 12/23/22 08:28 12/23/22 08:28 Short CBC 12/23/22 Range/Units 08:28 WBC 9.89 (3.29-11.43) 10^3/uL Hgb 12.70 (11.27-16.99) g/dL Hct 39.2 (36-47) % MCV 90.5 (85-98) fl Plt Count 197 (157-399) 10^3/cmm Neut % (Auto) 87.0 % Neut # (Auto) 8.61 H (1.8-7.7) 10^3/uL BMP 12/23/22 08:28 Sodium 139 Potassium 3.8 Chloride 105 Carbon Dioxide 23 BUN 24 H Creatinine 1.1 H Glucose 131 H Calcium 9.3 Cardiac Enzymes 12/23/22 Range/Units 08:28 Creatine Kinase 411 H* (26-192) U/L Liver Function 12/23/22 Range/Units 08:28 Total Bilirubin 0.3 (0.15-1.2) mg/dL AST 24 (0-32) U/L ALT 19 (0-33) U/L Alkaline Phosphatase 73 (35-105) U/L Albumin 3.7 (3.5-5.2) g/dL Urine 12/23/22 Range/Units 09:15 Urine Color Yellow (Yellow) Urine Appearance Clear (CLEAR) Urine pH 5 (5-7) Ur Specific [place] 1.005 (1.005-1.030) Urine Protein Neg (Negative) Urine Glucose (UA) Norm (Normal) Urine Ketones Negative (Negative) Urine Nitrate Negative (Negative) Urine Bilirubin Neg (Negative) Ur Leukocyte Esterase Negative (Negative) Urine RBC 0-4 H (0-2) /hpf Urine WBC 40-55 H (0-5) /hpf Coags 12/23/22 08:28 PT 16.80 H INR 1.31 H APTT 39.6 H Cardiac Studies: Echocardiogram 10/27/22
[2022-12-23] MEDS: sodium chloride 0.9% 1,000 ML 30 ML IV (14:20)
--- NOTE | 2022-12-23 14:49 | W.PM.OPSUD ---
Surgery/Procedure H&P Update DATE OF PROCEDURE: December 23, 2022 DATE H&P PERFORMED: 12/23/22 H&P UPDATE INFORMATION: I have reviewed H&P completed within last 30 days, I have examined patient prior to procedure and No changes to prior documentation PREOP DIAGNOSIS: Left femoral neck fracture PLANNED PROCEDURE: Operation Date: 12/23/22 14:00 Proposed Procedures p Hemiarthroplasty Hip(Left) - Fransico Puente DO
[2022-12-23] MEDS: vancomycin 1,000 MG SDV 1000 MG XX (15:49)
--- NOTE | 2022-12-23 16:15 | PM.OP ---
Operative Report Date of procedure: December 23, 2022 Pre-op diagnosis: Left femoral neck fracture Post-op diagnosis: same Procedure done: Left hip hemiarthroplasty Surgeon: Fransico Puente DO Estimated blood loss (mL): 50 Procedure: Left hip hemiarthroplasty Patient is brought to the operative suite after going anesthesia was placed in the lateral decubitus position. All areas impingement were well-padded. Patient was then prepped and draped normal sterile fashion. Skin incision is made over the lateral hip. The IT band was split and then the abductors and anterior hip capsule were taken down down to the lesser trochanter. The femoral cut was made with a saw fingerbreadth above the lesser trochanter. The femoral head was then removed and measured to be 45. She was brought to the femur. The tibia greater trochanter was cut with a box toe buffer. Followed by the canal finder followed by lateralizer. The canal was broached to 5 with a [employer] broaching system. And then a 5 stem from Krista was inserted. A size 45 head and -4 neck length were used. Hip was then reduced and felt to be stable in all positions. Wound was then closed in layered fashion using FiberWire to close the capsule and abductors back to the anterior femur as well as 0 Vicryl was used to close the IT band and skin was closed with 2-0 Vicryl and valerie. Sterile dressings were applied and patient was transferred to the PACU in stable condition.
--- NOTE | 2022-12-23 16:41 | ANE.PACU2 ---
Inpatient post-anesthesia follow up: Airway intact: Yes Vital signs: Temperature 97.8 F Pulse Rate 68 Respiratory Rate 18 Blood Pressure 175/67 Pulse Oximetry 97 Oxygen Delivery Me thod Room Air Oxygen Flow Rate 7 Fraction of Inspir ed Oxygen Hydration adequate: Yes Nausea and vomiting: No Pain level: 2 Mental status: Baseline
[2022-12-24] VITALS: BP 116/52; PULSE 60; RESP 17; TEMP 36.6; O2SAT 94
[2022-12-24 04:00] VITALS: BP 129/67; PULSE 57; RESP 16; TEMP 36.8; O2SAT 94
[2022-12-24] MEDS: HYDROcodone-acetaminophen 5-325 mg Tablet 1 TAB PO (04:58)
[2022-12-24] MEDS: sodium chloride 0.9% 1,000 ML 75 ML IV (04:59)
[2022-12-24 05:29] LABS: Basophils % 0.1 %; Hematocrit 33.8 % (36-47); Lymphocytes # 1.1 10^3/uL (0.8-4.8); Lymphocytes % 14.4 %; Mean Corpuscular HGB Conc 31.7 g/dL (30-55); Mean Corpuscular Volume 91.6 fl (85-98); Mean Platelet Volume 10.6 fL (7.4-10.4); Monocytes # 0.5 10^3/uL (0.2-0.9); Monocytes % 6.9 %; Neutrophils # 5.73 10^3/uL (1.8-7.7); Neutrophils % 78.2 %; Nucleated Red Blood Cells % 0 %; Platelet Count 190 10^3/cmm (157-399); Red Blood Count 3.69 10^6/uL (3.85-5.65); Red Cell Distribution Width 15.1 % (12.1-15.1); White Blood Count 7.34 10^3/uL (3.29-11.43)
[2022-12-24] MEDS: ketorolac 30 mg/mL INJ 15 MG IVP (05:55)
[2022-12-24 05:56] LABS: Blood Urea Nitrogen 20 mg/dL (8-23); Calcium 8.2 mg/dL (8.5-10.5); Carbon Dioxide 21 mmol/L (22-29); Chloride 110 mmol/L (98-107); Glucose 120 mg/dL (65-115); Osmolality Calculated 298 mOsm/kg (285-295); Sodium 142 mmol/L (136-145)
[2022-12-24 06:02] LABS: Creatine Phosphokinase 405 U/L (26-192)
[2022-12-24] MEDS: ceFAZolin 2,000 MG in sodium chloride 0.9% (plus) 50 ML 100 MG IV ×2 (06:13→15:26)
--- NOTE | 2022-12-24 07:00 | ECG_ITS ---
[facility] Test Date: 2022-12-24 Pat Name: Amy Davies Department: Room: 258 Gender: Female Intelligence Manager: : [id number] Requested By: Cj Mcclain Order Number: [id number] Chanelle MD: Karen Liz M.D. Measurements Intervals [place] Rate: 68 P: -17 TX: 153 QRS: 70 QRSD: 85 T: 100 QT: 471 QTc: 503 Interpretive Statements SINUS RHYTHM LEFT VENTRICULAR HYPERTROPHY AND ST-T CHANGE [VOLTAGE CRITERIA PLUS ST/T ABNORMALITY] Compared to ECG 12/23/2022 08:40:57 ST (T wave) deviation now present T-wave abnormality no longer present Prolonged QT interval no longer present Electronically Signed On 12-26-2022 8:12:00 SOCIAL MEDIA EXECUTIVE by Karen Liz M.D. [id number]
[2022-12-24 07:50] VITALS: BP 136/69; PULSE 54; RESP 19; TEMP 36.4; O2SAT 95
[2022-12-24] MEDS: rivaroxaban 10 mg Tablet 20 MG PO (08:42)
[2022-12-24] MEDS: atorvastatin 40 mg Tablet 20 MG PO (08:43)
[2022-12-24] MEDS: levothyroxine 100 mcg Tablet PO (08:43)
--- NOTE | 2022-12-24 09:10 | PM.PN ---
Subjective Subjective: Patient is postop day #1 from her left hip hemiarthroplasty. She is resting comfortably in bed has not been up with therapy yet however is pain-free laying in bed. Vitals/I&O/Wt Last Vital Signs Temp 97.5 F L 12/24/22 07:50 Pulse 54 L 12/24/22 07:50 Resp 19 H 12/24/22 07:50 BP 136/69 12/24/22 07:50 Pulse Ox 95 12/24/22 07:50 O2 Del Method Room Air 12/24/22 07:50 O2 Flow Rate 7 12/23/22 16:25 12/23/22 12/24/22 12/24/22 22:59 06:59 14:59 Intake Total 890 / 940 1030.75 / 1970.75 50 / 50 Output Total 1075 / 1075 100 / 1175 Balance -185 / -135 930.75 / 795.75 50 / 50 Weight last 48 hrs Weight 120 lb Physical Exam Narrative: Resting comfortably in bed Urinary Catheter Management: Banks: Cath Placed During This Visit: yes, but has since been removed by the nurse Reason for Continuing Indwelling Catheter: Decision to DC Catheter Date Urinary Catheter Removed: 12/24/22 Time Urinary Catheter Discontinued: 06:27 Data 12/24/22 04:55 12/24/22 04:55 A&P Assessment and plan (1) Encounter for postoperative care: Patient is postop day #1 left hip hemiarthroplasty. Encourage incentive spirometer up with physical therapy DVT prophylaxis she can restart her rivaroxaban Attestations Medical Necessity Statement*: Per primary service Coding Level of Care Code Acute Code for Chg Fwd Diagnoses Encounter for postoperative care Z48.89
[2022-12-24] MEDS: cefTRIAXone 1,000 MG in sodium chloride 0.9% (plus) 50 ML 100 MG IV (11:23)
[2022-12-24 11:39] VITALS: BP 170/84; PULSE 67; RESP 19; TEMP 36.6; O2SAT 95
--- NOTE | 2022-12-24 14:25 | P.PN_ITS ---
Subjective Subjective: seen this morning. She is in good spirits. She states she is doing well. She has been reading a novel Vitals/I&O/Wt Last Vital Signs Temp 97.9 F 12/24/22 11:39 Pulse 67 12/24/22 11:39 Resp 19 H 12/24/22 11:39 BP 170/84 12/24/22 11:39 Pulse Ox 95 12/24/22 11:39 O2 Del Method Room Air 12/24/22 11:39 O2 Flow Rate 7 12/23/22 16:25 12/23/22 12/24/22 12/24/22 22:59 06:59 14:59 Intake Total 890 / 940 1030.75 / 1970.75 1656.5 / 1656.5 Output Total 1075 / 1075 100 / 1175 Balance -185 / -135 930.75 / 795.75 1656.5 / 1656.5 Weight last 48 hrs Weight 54.431 kg Physical Exam Narrative: General exam: No acute distress. HEENT: Atraumatic and normocephalic. Pupils equally round. Oropharynx clear. Neck is supple no lymphadenopathy thyromegaly Cardiovascular regular rate and rhythm, heart sounds distant Lungs clear no wheezing or crackles Abdomen is soft with positive bowel sounds. Extremities no cyanosis clubbing or edema. Left leg surgical site covered with Band-Aid. Appropriately tender to palpation. Urinary Catheter Management: Banks: Cath Placed During This Visit: yes, but has since been removed by the nurse Reason for Continuing Indwelling Catheter: Decision to DC Catheter Date Urinary Catheter Removed: 12/24/22 Time Urinary Catheter Discontinued: 06:27 Data 12/24/22 04:55 12/24/22 04:55 Micro: Microbiology 12/23/22 09:15 Urine Culture - Preliminary Urine,Clean Catch A&P Assessment and plan (1) Femoral neck fracture: Patient with a left femoral neck fracture after a mechanical fall She is status post ORIF. Postop day 1. Pain control Patient is doing well. Orthopedic surgery on board. Will need retirement facility placement for hip fracture rehabilitation CBC, BMP in the morning Qualifiers: Encounter type: initial encounter Fracture type: closed Laterality: left Qualified Code(s): S72.002A - Fracture of unspecified part of neck of left femur, initial encounter for closed fracture (2) DVT (deep venous thrombosis): Patient with history of DVT in October 2013. She has been on anticoagulation since then. She will need to restart anticoagulation following surgery. Xarelto has been restarted. (3) Prolonged QT interval: Prolonged QT intervals noted on initial EKG. Will repeat this in the morning. No current medications noted that would prolong QT interval. Check magnesium level. Avoid medications that could prolong QT. QT 503. Continue to monitor. Check magnesium (4) Poor short term memory: Patient with history of poor short-term memory/cognitive deficits/dementia. Monitor closely in the hospital. High risk for delirium. Plan UTI. Rocephin initiated. Urine culture. History of hypertension. Hold HALIMA inhibitor bradycardia started blood pressure limits. Other medical problems as listed in past medical history Patient work with physical therapy today. Full code Xarelto and SCDs Attestations Medical Necessity Statement*: Awaiting placement to rehab. Diagnoses Femoral neck fracture S72.002A Encounter type: initial encounter Fracture type: closed Laterality: left DVT (deep venous thrombosis) I82.409 Prolonged QT interval R94.31 Poor short term memory R41.3
[2022-12-24 16:52] VITALS: BP 164/80; PULSE 65; RESP 22; TEMP 36.5; O2SAT 95
[2022-12-24 19:47] VITALS: BP 170/76; PULSE 68; RESP 17; TEMP 36.7; O2SAT 94
[2022-12-25] VITALS (7 sets, daily range): BP systolic 107–188; BP diastolic 66–82; PULSE 63–93; RESP 17–19; TEMP 36.4–37; O2SAT 93–98
[2022-12-25 04:53] LABS: Basophils % 0.4 %; Eosinophils % 0.5 %; Hematocrit 32.3 % (36-47); Lymphocytes # 1.2 10^3/uL (0.8-4.8); Lymphocytes % 15.9 %; Mean Corpuscular HGB Conc 32.5 g/dL (30-55); Mean Corpuscular Hemoglobin 29.2 pg (27-33); Mean Corpuscular Volume 89.7 fl (85-98); Mean Platelet Volume 10.6 fL (7.4-10.4); Monocytes # 0.5 10^3/uL (0.2-0.9); Monocytes % 6.1 %; Neutrophils # 5.96 10^3/uL (1.8-7.7); Nucleated Red Blood Cells % 0 %; Platelet Count 170 10^3/cmm (157-399); White Blood Count 7.74 10^3/uL (3.29-11.43)
[2022-12-25 05:24] LABS: Anion Gap 11.8 (5-19); Blood Urea Nitrogen 26 mg/dL (8-23); Calcium 8.3 mg/dL (8.5-10.5); Carbon Dioxide 24 mmol/L (22-29); Chloride 108 mmol/L (98-107); Glucose 95 mg/dL (65-115); Magnesium 1.7 mg/dL (1.7-2.3); Osmolality Calculated 295 mOsm/kg (285-295); Potassium 3.8 mmol/L (3.5-5.1); Sodium 140 mmol/L (136-145)
[2022-12-25] MEDS: ketorolac 30 mg/mL INJ 15 MG IVP (06:06)
[2022-12-25] MEDS: amlodipine 5 mg Tablet PO (06:13)
--- NOTE | 2022-12-25 07:52 | PM.PN ---
Subjective Subjective: Resting comfortably in bed Vitals/I&O/Wt Last Vital Signs Temp 98.3 F 12/25/22 04:00 Pulse 69 12/25/22 04:00 Resp 17 12/25/22 04:00 BP 184/82 12/25/22 04:00 Pulse Ox 96 12/25/22 04:00 O2 Del Method Room Air 12/24/22 16:52 O2 Flow Rate 7 12/23/22 16:25 12/24/22 12/25/22 12/25/22 22:59 06:59 14:59 Intake Total 1770 / 3426.5 Output Total 0 / 0 Balance 1770 / 3426.5 Weight last 48 hrs Weight 120 lb Physical Exam Narrative: Resting comfortably in bed Urinary Catheter Management: Banks: Cath Placed During This Visit: yes, but has since been removed by the nurse Reason for Continuing Indwelling Catheter: Decision to DC Catheter Date Urinary Catheter Removed: 12/24/22 Time Urinary Catheter Discontinued: 06:27 Data 12/25/22 04:40 12/25/22 04:40 Micro: Microbiology 12/23/22 09:15 Urine Culture - Preliminary Urine,Clean Catch A&P Assessment and plan (1) Encounter for postoperative care: up with pt d/c planning Plan per primary service Attestations Medical Necessity Statement*: per primary service Coding Level of Care Code Acute Code for Chg Fwd Diagnoses Encounter for postoperative care Z48.89
[2022-12-25] MEDS: cefTRIAXone 1,000 MG in sodium chloride 0.9% (plus) 50 ML 100 MG IV (09:06)
[2022-12-25] MEDS: levothyroxine 100 mcg Tablet PO (09:06)
[2022-12-25] MEDS: rivaroxaban 10 mg Tablet 20 MG PO (09:07)
[2022-12-25] MEDS: atorvastatin 40 mg Tablet 20 MG PO (09:07)
--- NOTE | 2022-12-25 13:44 | PM.PN ---
Subjective Subjective: seen this am walking with PT when seen Vitals/I&O/Wt Last Vital Signs Temp 97.5 F L 12/25/22 12:00 Pulse 93 12/25/22 12:00 Resp 19 H 12/25/22 12:00 BP 161/77 12/25/22 12:00 Pulse Ox 98 12/25/22 12:00 O2 Del Method Room Air 12/25/22 12:00 O2 Flow Rate 7 12/23/22 16:25 12/24/22 12/25/22 12/25/22 22:59 06:59 14:59 Intake Total 1770 / 3426.5 530 / 530 Output Total 0 / 0 Balance 1770 / 3426.5 530 / 530 Physical Exam Narrative: General exam: No acute distress. HEENT: Atraumatic and normocephalic. Cardiovascular regular rate and rhythm, heart sounds distant Lungs clear no wheezing or crackles Abdomen is soft with positive bowel sounds. Extremities no cyanosis clubbing or edema. Left leg surgical site covered with Band-Aid. Urinary Catheter Management: Banks: Cath Placed During This Visit: yes, but has since been removed by the nurse Reason for Continuing Indwelling Catheter: Decision to DC Catheter Date Urinary Catheter Removed: 12/24/22 Time Urinary Catheter Discontinued: 06:27 Data 12/25/22 04:40 12/25/22 04:40 Micro: Microbiology 12/23/22 09:15 Urine Culture - Final Urine,Clean Catch A&P Assessment and plan (1) Femoral neck fracture: Patient with a left femoral neck fracture after a mechanical fall She is status post ORIF. Postop day 2. Pain control Patient is doing well. Orthopedic surgery on board. Will need senior living facility placement for hip fracture rehabilitation CBC, BMP in the morning Qualifiers: Encounter type: initial encounter Fracture type: closed Laterality: left Qualified Code(s): S72.002A - Fracture of unspecified part of neck of left femur, initial encounter for closed fracture (2) DVT (deep venous thrombosis): Patient with history of DVT in October 2013. She has been on anticoagulation since then. She will need to restart anticoagulation following surgery. Xarelto has been restarted. (3) Prolonged QT interval: Prolonged QT intervals noted on initial EKG. Will repeat this in the morning. No current medications noted that would prolong QT interval. Check magnesium level. Avoid medications that could prolong QT. QT 503. Continue to monitor. Mg 1.7 (4) Poor short term memory: Patient with history of poor short-term memory/cognitive deficits/dementia. Monitor closely in the hospital. High risk for delirium. Plan UTI. Rocephin initiated. Urine culture. History of hypertension. Hold HALIMA inhibitor bradycardia started blood pressure limits. Other medical problems as listed in past medical history Patient work with physical therapy today. Full code Xarelto and SCDs Attestations Medical Necessity Statement*: Awaiting placement to rehab. Diagnoses Femoral neck fracture S72.002A Encounter type: initial encounter Fracture type: closed Laterality: left DVT (deep venous thrombosis) I82.409 Prolonged QT interval R94.31 Poor short term memory R41.3
[2022-12-26 04:00] VITALS: BP 180/78; PULSE 70; RESP 17; TEMP 36.5; O2SAT 96
[2022-12-26 07:58] VITALS: BP 187/85; PULSE 67; RESP 18; TEMP 36.4; O2SAT 95
[2022-12-26] MEDS: rivaroxaban 10 mg Tablet 20 MG PO (08:52)
[2022-12-26] MEDS: atorvastatin 40 mg Tablet 20 MG PO (08:52)
[2022-12-26] MEDS: levothyroxine 100 mcg Tablet PO (08:52)
[2022-12-26] MEDS: cefTRIAXone 1,000 MG in sodium chloride 0.9% (plus) 50 ML 100 MG IV (08:52)
--- NOTE | 2022-12-26 11:28 | P.DS_ITS ---
Discharge Providers Date of Admission: 12/23/22 08:46 Date of Discharge: December 26, 2022 Attending Provider at Admission: Magda Wheeler MD Attending Provider at Discharge: Magda Wheeler MD Primary Care Provider: STEFFANY White Diagnoses at Discharge Discharge Diagnosis (1) Femoral neck fracture: Status: Resolved Qualifiers: Encounter type: initial encounter Fracture type: closed Laterality: left Qualified Code(s): S72.002A - Fracture of unspecified part of neck of left femur, initial encounter for closed fracture (2) DVT (deep venous thrombosis): Status: Acute (3) Prolonged QT interval: Status: Acute (4) Poor short term memory: Status: Acute Reason for Visit Reason for Visit: fall Hospital Course Hospital Course admitted for left femoral neck fracture and underwent ORIF. Already on xarelto for previous dvt. It was restarted after surgery. Patient working well with PT and will be discharged to SNF in stable condition. During stay, it was noted she had prolonged QT. EKG repeated and it remained 503 range. mag level checked and normal. zofran discontinued. patient to f/u with PCP. Copy of dc summary sent to pcp Physical Exam Narrative: General exam: No acute distress. HEENT: Atraumatic and normocephalic. Cardiovascular regular rate and rhythm, heart sounds distant Lungs clear no wheezing or crackles Abdomen is soft with positive bowel sounds. Extremities no cyanosis clubbing or edema. Left leg surgical site covered with Band-Aid. Urinary Catheter Management: Banks: Cath Placed During This Visit: yes, but has since been removed by the nurse Reason for Continuing Indwelling Catheter: Decision to DC Catheter Date Urinary Catheter Removed: 12/24/22 Time Urinary Catheter Discontinued: 06:27 Discharge Data Studies Completed and Pending Completed Studies During Hospitalization Category Date Time Status XR chest 1V portable [id number] Stat Exams 12/23/22 08:40 Completed XR hip LT 2-3V wo/w pel* [id number] Stat Exams 12/23/22 07:59 Completed XR pelvis 1-2V* [id number] Routine Exams 12/23/22 Completed Laboratory Results WBC 7.74 10^3/uL (3.29-11.43) 12/25/22 04:40 RBC 3.60 10^6/uL (3.85-5.65) L 12/25/22 04:40 Hgb 10.50 g/dL (11.27-16.99) L 12/25/22 04:40 Hct 32.3 % (36-47) L 12/25/22 04:40 MCV 89.7 fl (85-98) 12/25/22 04:40 MCH 29.2 pg (27-33) 12/25/22 04:40 MCHC 32.5 g/dL (30-55) 12/25/22 04:40 RDW 15.0 % (12.1-15.1) 12/25/22 04:40 Plt Count 170 10^3/cmm (157-399) 12/25/22 04:40 MPV 10.6 fL (7.4-10.4) H 12/25/22 04:40 Neut % (Auto) 77.0 % 12/25/22 04:40 Lymph % (Auto) 15.9 % 12/25/22 04:40 [place] % (Auto) 6.1 % 12/25/22 04:40 Eos % (Auto) 0.5 % 12/25/22 04:40 Baso % (Auto) 0.4 % 12/25/22 04:40 Neut # (Auto) 5.96 10^3/uL (1.8-7.7) 12/25/22 04:40 Lymph # (Auto) 1.2 10^3/uL (0.8-4.8) 12/25/22 04:40 [place] # (Auto) 0.5 10^3/uL (0.2-0.9) 12/25/22 04:40 Eos # (Auto) 0.0 10^3/uL (0.0-0.8) 12/25/22 04:40 Baso # (Auto) 0.0 10^3/uL (0.0-0.1) 12/25/22 04:40 Nucleated RBC % (auto) 0 % 12/25/22 04:40 Nucleated RBCs # 0.0 /100WBC 12/25/22 04:40 PT 16.80 SECONDS (12.1-14.9) H 12/23/22 08:28 INR 1.31 (0.8-1.2) H 12/23/22 08:28 APTT 39.6 SECONDS (23.9-36.7) H 12/23/22 08:28 Sodium 140 mmol/L (136-145) 12/25/22 04:40 Potassium 3.8 mmol/L (3.5-5.1) 12/25/22 04:40 Chloride 108 mmol/L (98-107) H 12/25/22 04:40 Carbon Dioxide 24 mmol/L (22-29) 12/25/22 04:40 Anion Gap 11.8 (5-19) 12/25/22 04:40 BUN 26 mg/dL (8-23) H 12/25/22 04:40 Creatinine 1.1 mg/dL (0.5-0.9) H 12/25/22 04:40 GFR Calculation Not Reportable 12/25/22 04:40 Glucose 95 mg/dL (65-115) 12/25/22 04:40 Calculated Osmolality 295 mOsm/kg (285-295) 12/25/22 04:40 Calcium 8.3 mg/dL (8.5-10.5) L 12/25/22 04:40 Magnesium 1.7 mg/dL (1.7-2.3) 12/25/22 04:40 Total Bilirubin 0.3 mg/dL (0.15-1.2) 12/23/22 08:28 AST 24 U/L (0-32) 12/23/22 08:28 ALT 19 U/L (0-33) 12/23/22 08:28 Alkaline Phosphatase 73 U/L (35-105) 12/23/22 08:28 Creatine Kinase 405 U/L (26-192) H* 12/24/22 04:55 Total Protein 6.8 g/dL (6.6-8.7) 12/23/22 08:28 Albumin 3.7 g/dL (3.5-5.2) 12/23/22 08:28 Globulin 3.1 g/dL (1.3-4.6) 12/23/22 08:28 Urine Color Yellow (Yellow) 12/23/22 09:15 Urine Appearance Clear (CLEAR) 12/23/22 09:15 Urine pH 5 (5-7) 12/23/22 09:15 Ur Specific [place] 1.005 (1.005-1.030) 12/23/22 09:15 Urine Protein Neg (Negative) 12/23/22 09:15 Urine Glucose (UA) Norm (Normal) 12/23/22 09:15 Urine Ketones Negative (Negative) 12/23/22 09:15 Urine Blood 3+ (Negative) H 12/23/22 09:15 Urine Nitrate Negative (Negative) 12/23/22 09:15 Urine Bilirubin Neg (Negative) 12/23/22 09:15 Urine Urobilinogen Norm mg/dL (Negative) 12/23/22 09:15 Ur Leukocyte Esterase Negative (Negative) 12/23/22 09:15 Urine RBC 0-4 /hpf (0-2) H 12/23/22 09:15 Urine WBC 40-55 /hpf (0-5) H 12/23/22 09:15 Ur Squamous Epith Cells 0-4 /hpf (0-5) H 12/23/22 09:15 Amorphous Sediment Not Reportable 12/23/22 09:15 Urine Bacteria Trace /hpf (NONE) 12/23/22 09:15 Vitals Last Vital Signs Temp 97.5 F L 12/26/22 07:58 Pulse 67 12/26/22 07:58 Resp 18 12/26/22 07:58 BP 187/85 12/26/22 07:58 Pulse Ox 95 12/26/22 07:58 O2 Del Method Room Air 12/25/22 12:00 O2 Flow Rate 7 12/23/22 16:25 Discharge Plan Discharge Patient Disposition: Xfer SNF Condition: Stable Prescriptions: New Senna with Docusate Sodium 8.6-50 mg tablet 1 tab-cap PO BID PRN (Reason: constipation) Qty: 10 0RF hydrocodone-acetaminophen 5-325 mg tablet 1 tab PO Q8H PRN (Reason: pain) Qty: 10 0RF Continued Xarelto 20 mg tablet 20 mg PO DAILY Qty: 30 2RF Rx Instructions: must administer with evening meal levothyroxine 100 mcg tablet 100 mcg PO DAILY Qty: 90 0RF Rx Instructions: decrease dose atorvastatin 10 mg tablet 10 mg PO DAILY Qty: 30 5RF lisinopril 40 mg tablet 40 mg PO DAILY Qty: 30 5RF multivitamin Tablet 1 tab PO DAILY Discontinued ondansetron 4 mg tablet,disintegrating 4 mg PO Q6H PRN (Reason: nausea and vomiting) Qty: 14 0RF Discharge Orders: Discharge Order (Routine); Ordered 12/26/22 Ordered By: Magda Wheeler Referrals: Marliou Pastrana, CONSTRUCTION MANAGEMENT INSTRUCTOR-C [Primary Care Provider] - 4-7 days Discharge Diet: Cardiac Discharge Activity: Increase activity as tolerated and As per PT/OT instructions Discharge Attestations Time Spent in Discharge Care*: less than 30 min Quality Metrics Clinical Quality Measures [ No reported AMI, CVA or VTE this stay] Coding Level of Care Code Acute Code for Chg Fwd Diagnoses Femoral neck fracture S72.002A Encounter type: initial encounter Fracture type: closed Laterality: left DVT (deep venous thrombosis) I82.409 Prolonged QT interval R94.31 Poor short term memory R41.3
[2022-12-26 12:00] VITALS: BP 134/77; PULSE 87; RESP 19; TEMP 36.5; O2SAT 97
--- NOTE | 2022-12-26 15:45 | PC.NURSE ---
Called report to Meng Talavera LPN at [facility]
[2022-12-26 15:46] VITALS: BP 149/77; PULSE 82; RESP 19; TEMP 36.4; O2SAT 96
--- NOTE | 2022-12-26 15:48 | PC.NURSE ---
Iv was discontinued by this nurse. Catheter tip intact.
== END 2022-12-26 15:48 | disposition skilled nursing facility (03) | DRG 522 ==
LOC: ER 09:29 → MEDSURG 10:49
PROVIDERS: Internal Medicine; Orthopaedic Surgery; Admitting Provider Internal Medicine; Emergency Provider Family Medicine; PCP Nurse Practitioner; Visit Provider Internal Medicine
PROC: 0SRS0JZ Replacement of Left Hip Joint, Femoral Surface with Synthetic Substitute, Open Approach (ICD-10-PCS; CPT 27125; principal; 2022-12-23 13:15)
DX: S72.012A Unspecified intracapsular fracture of left femur, initial encounter for closed fracture (principal); N39.0 Urinary tract infection, site not specified; W06.XXXA Fall from bed, initial encounter; Z86.718 Personal history of other venous thrombosis and embolism; R94.31 Abnormal electrocardiogram [ECG] [EKG]; Z79.01 Long term (current) use of anticoagulants; E03.9 Hypothyroidism, unspecified; F17.210 Nicotine dependence, cigarettes, uncomplicated; I10 Essential (primary) hypertension; E78.2 Mixed hyperlipidemia; R41.3 Other amnesia; Z85.828 Personal history of other malignant neoplasm of skin; Z75.1 Person awaiting admission to adequate facility elsewhere
CPT/HCPCS: 36415; 51702; 71045; 72170; 73502; 80048; 80053; 81001; 82550; 83690; 83735; 85025; 85610; 85730; 87086; 93005; 96361; 96365; 96374; 96375; 96376; 97110; 97116; 97161; 97166; 97530; 97535; 99285; C1776; J0360; J0690; J0696; J1100; J1885; J2371; J2405; J2704; J2710; J3010; J3370; J3490; J7030; P9045; Q0162

== ENCOUNTER → 2023-01-17 11:51 | Outpatient (BNVA) | payer MEDICARE, SELFPAY | PROVIDERS: PCP Nurse Practitioner; Visit Provider Nurse Practitioner | DX: Z96.642 Presence of left artificial hip joint (principal); S72.002D Fracture of unspecified part of neck of left femur, subsequent encounter for closed fracture with routine healing; X58.XXXD Exposure to other specified factors, subsequent encounter | CPT/HCPCS: 73502; 99024 ==

== ENCOUNTER 2023-04-24 15:48 | Inpatient (IN) | payer MEDICARE, SELFPAY ==
[2023-04-24] VITALS (14 sets, daily range): BP systolic 131–181; BP diastolic 77–99; PULSE 69–116; RESP 16–37; TEMP 36.8–37.8; O2SAT 89–97; BMI 19.9
--- NOTE | 2023-04-24 15:54 | XRR_ITS ---
PROCEDURE INFORMATION: Exam: XR Chest Exam date and time: 04/24/2023 5:04 PM Age: 87 years old Clinical indication: Cough and shortness of breath; Patient HX: URI for 5 days; Additional info: Dyspnea/cough TECHNIQUE: Imaging protocol: Radiologic exam of the chest. Views: 1 view. COMPARISON: CR XR chest 1V portable [id number] 12/23/2022 8:46 AM FINDINGS: Lungs: Moderate patchy bibasilar opacities consistent with multifocal pneumonia or interstitial edema. Moderate pulmonary vascular congestion. Pleural spaces: Unremarkable. No pleural effusion. No pneumothorax. Heart/Mediastinum: The cardiac silhouette is magnified by portable technique, likely borderline size and more pronounced from prior imaging. Vasculature: Tortuous thoracic aorta likely due to age-related changes. No superior mediastinal widening. Moderately extensive thoracic aortic calcification. Bones/joints: Diffuse osteopenia. XR/XR chest 1V portable [id number] IMPRESSION: 1. Moderate patchy bilateral airspace opacities due to multifocal pneumonia, favored over interstitial edema. 2. However, a component of CHF may be present given increased cardiac silhouette size and pulmonary vascular congestion compared to prior imaging.
--- NOTE | 2023-04-24 15:55 | ECG_ITS ---
[facility] Test Date: 2023-04-24 Pat Name: Amy Davies Department: Room: Gender: Female Department Clerk: : 1935 Requested By: Terrance Alonso Order Number: [id number] Chanelle MD: Cyndee Mancilla M.D. Measurements Intervals [place] Rate: 103 P: 0 AK: 0 QRS: 76 QRSD: 105 T: 91 QT: 329 QTc: 433 Interpretive Statements ATRIAL FIBRILLATION WITH RAPID VENTRICULAR RESPONSE NONSPECIFIC ST & T-WAVE ABNORMALITY ABNORMAL RHYTHM ECG Compared to ECG 12/24/2022 05:41:11 T-wave abnormality now present Sinus rhythm no longer present Left ventricular hypertrophy no longer present ST (T wave) deviation no longer present Electronically Signed On 04-25-2023 22:59:01 CDT by Cyndee Mancilla M.D. [id number]
--- NOTE | 2023-04-24 16:03 | ED_ITS ---
HPI - SOB/Dyspnea 2 General: Chief Complaint: Shortness of Breath/Dyspnea Stated Complaint: sob Time Seen by Provider: 04/24/23 15:54 Source: patient and EMS Mode of arrival: EMS History of Present Illness: HPI Narrative: 87-year-old female presents emergency ro om from home with complaints shortness of breath she has a temperature she is tachycardic and tachypneic on arrival she was seen a few days ago in primary care office and while she had a respiratory illness we do not know any details regarding that. She has a history of DVT and she is on Xarelto. She denies chest or abdominal pain has some early onset mild dementia and was mildly confused per the patient's family. MD elicited complaint: shortness of breath and cough Onset (ago): day(s) Exacerbating factors: nothing Relieving factors: nothing Known history of: COPD Associated symptoms: Reports chest congestion and cough; Deny abdominal pain, chest pain, diaphoresis, dizziness, extremity pain, fever(s), hemoptysis, lightheadedness, myalgias, nausea, orthopnea, palpitations, paresthesias, polydipsia, polyuria, rash, sense of impending doom, syncope or vomiting Treatment prior to arrival: oxygen and bronchodilator Review of Systems 2 Const: Denies: fever(s), chills or diaphoresis Card: Denies: chest pain, palpitations, lightheadedness, syncope or orthopnea Resp: Reports: dyspnea, non-productive cough, wheezing and chest congestion; Denies: hemoptysis GI: Denies: abdominal pain, nausea or vomiting : Denies: dysuria, urinary frequency or urinary urgency Musc: Denies: neck pain, back pain or extremity pain Skin/Breast: Denies: rash Neuro: Denies: dizziness Endo: Denies: polyuria or polydipsia PFSH ED 2 PFSH: Medical History DVT (deep venous thrombosis) Meningioma, cerebral Accelerated hypertension Syncope Bradycardia Rhabdomyolysis Cigarette smoker Adult onset hypothyroidism Mixed hyperlipidemia Essential (primary) hypertension Vitamin D insufficiency Basal cell carcinoma (BCC) Surgical History History of left hip hemiarthroplasty Surgery: Left hip hemiarthroplasty Surgeon: Dr. Fransico Puente DO Date of Surgery: 12/23/2022. History of hip surgery right 2018 History of cataract surgery Family History Other Cancer Congestive heart failure (CHF) Diabetes Social History Smoking and tobacco/nicotine status: never used tobacco/nicotine Second hand smoke exposure: No Alcohol intake: never Substance/Drug Use: never Adopted: No Caregiver/support person: No Lives independently: Yes Marital status: Single Number of children: 2 Current occupational status: retired Do you think of yourself as: Straight/Heterosexual Current gender identity: Female Physical Exam 2 Const: GENERAL APPEARANCE: cooperative ORIENTATION/CONSCIOUSNESS: Yes awake HENMT: COMMON NORMALS: normocephalic, atraumatic and hearing grossly normal bilaterally HEAD & SCALP: normocephalic and atraumatic Resp: EFFORT & INSPECTION: Yes tachypneic and Yes uses accessory muscles A USCULTATION: rhonchi and wheezes Cardio: COMMON NORMALS: regular rate, regular rhythm and No murmurs present (Cardio) RATE: regular rate RHYTHM: regular rhythm GI: COMMON NORMALS: Soft to palpation and No hepatosplenomegaly present A USCULTATION: Yes normoactive bowel sounds PALPATION: Yes Soft to palpation, No Tenderness to palpation present (GI), No Guarding due to palpation present (GI) and Yes No hepatosplenomegaly present Extremity: COMMON NORMALS: normal to inspection, capillary refill normal, no clubbing, cyanosis or edema, no calf tenderness and no pedal edema Skin: COMMON NORMALS: no rashes or lesions noted GENERAL SKIN EXAM: no rashes or lesions noted Course 2 Vital Signs: Vital signs: Vital Signs Temperature 100.0 F H 04/24/23 15:53 Pulse Rate 96 04/24/23 18:00 Respiratory Rate 30 H 04/24/23 16:46 Blood Pressure 165/92 04/24/23 18:00 Pulse Oximetry 90 04/24/23 18:00 Oxygen Delivery Me thod Nasal Cannula 04/24/23 18:00 Oxygen Flow Rate 5 04/24/23 16:46 Fraction of Inspir ed Oxygen 50 04/24/23 16:00 MDM - SOB/Dyspnea Medical Decision Making Acute pneumonia. Started on Vanco and Zosyn cultures done she is not septic at this point initial blood gas she was well oxygenated on room air did not require BiPAP. Discussed with hospitalist orders written Medical Records I reviewed the patient's medical records. Lab Data I reviewed the patient's lab results. 04/24/23 16:11 04/24/23 16:11 Labs/Radiology: Laboratory Results WBC 8.64 10^3/uL (3.29-11.43) 04/24/23 16:11 RBC 4.66 10^6/uL (3.85-5.65) 04/24/23 16:11 Hgb 14.30 g/dL (11.27-16.99) 04/24/23 16:11 Hct 42.6 % (36-47) 04/24/23 16:11 MCV 91.4 fl (85-98) 04/24/23 16:11 MCH 30.7 pg (27-33) 04/24/23 16:11 MCHC 33.6 g/dL (30-55) 04/24/23 16:11 RDW 16.5 % (12.1-15.1) H 04/24/23 16:11 Plt Count 323 10^3/cmm (157-399) 04/24/23 16:11 MPV 9.8 fL (7.4-10.4) 04/24/23 16:11 Neut % (Auto) 87.6 % 04/24/23 16:11 Lymph % (Auto) 5.6 % 04/24/23 16:11 Wise % (Auto) 5.8 % 04/24/23 16:11 Eos % (Auto) 0.0 % 04/24/23 16:11 Baso % (Auto) 0.2 % 04/24/23 16:11 Neut # (Auto) 7.57 10^3/uL (1.8-7.7) 04/24/23 16:11 Lymph # (Auto) 0.5 10^3/uL (0.8-4.8) L 04/24/23 16:11 Wise # (Auto) 0.5 10^3/uL (0.2-0.9) 04/24/23 16:11 Eos # (Auto) 0.0 10^3/uL (0.0-0.8) 04/24/23 16:11 Baso # (Auto) 0.0 10^3/uL (0.0-0.1) 04/24/23 16:11 Nucleated RBC % (auto) 0 % 04/24/23 16:11 Nucleated RBCs # 0.0 /100WBC 04/24/23 16:11 Specimen Type Arterial 04/24/23 16:00 Sample Site Brachial, left 04/24/23 16:00 ABG pH 7.42 (7.35-7.45) 04/24/23 16:00 ABG pCO2 37.0 mmHg (35-45) 04/24/23 16:00 ABG pO2 70.6 mmHg (80.0-100.0) L 04/24/23 16:00 ABG PO2/FiO2 Ratio 0 04/24/23 16:00 ABG HCO3 24.2 mmol/L (22-26) 04/24/23 16:00 ABG O2 Saturation 95.2 04/24/23 16:00 ABG Base Excess 0.1 mmol/L (-2.0-2.0) 04/24/23 16:00 Guilherme Test N/a 04/24/23 16:00 A-a O2 Gradient 31.3 mmHg (5-10) H 04/24/23 16:00 Hematocrit 41.8 % (37-47) 04/24/23 16:00 Hgb O2 Saturation 94.0 % (95-100) L 04/24/23 16:00 Carboxyhemoglobin 0.8 %THgb (0.4-20.1) 04/24/23 16:00 Methemoglobin 0.4 % (0.4-1.5) 04/24/23 16:00 Total Hemoglobin 13.6 g/dL (12-16) 04/24/23 16:00 Sodium 139.0 mmol/L (131-143) 04/24/23 16:00 Potassium 3.7 mmol/L (3.5-5.0) 04/24/23 16:00 Glucose 106.0 mg/dL (70-115) 04/24/23 16:00 Ionized Calcium 1.2 mmol/L (1.1-1.4) 04/24/23 16:00 O2 Delivery Device Bipap 04/24/23 16:00 FiO2 50.0 % 04/24/23 16:00 Rental Counter Clerk ID [id number] 04/24/23 16:00 Sodium 137 mmol/L (136-145) 04/24/23 16:11 Potassium 4.2 mmol/L (3.5-5.1) 04/24/23 16:11 Chloride 98 mmol/L (98-107) 04/24/23 16:11 Carbon Dioxide 24 mmol/L (22-29) 04/24/23 16:11 Anion Gap 19.2 (5-19) H 04/24/23 16:11 BUN 23 mg/dL (8-23) 04/24/23 16:11 Creatinine 1.5 mg/dL (0.5-0.9) H 04/24/23 16:11 GFR Calculation Not Reportable 04/24/23 16:11 Glucose 102 mg/dL (65-115) 04/24/23 16:11 Calculated Osmolality 288 mOsm/kg (285-295) 04/24/23 16:11 Lactic Acid 1.6 mmol/L (0.5-2.2) 04/24/23 16:11 Calcium 8.9 mg/dL (8.5-10.5) 04/24/23 16:11 Total Bilirubin 0.6 mg/dL (0.15-1.2) 04/24/23 16:11 AST 20 U/L (0-32) 04/24/23 16:11 ALT 12 U/L (0-33) 04/24/23 16:11 Alkaline Phosphatase 125 U/L (35-105) H 04/24/23 16:11 Troponin T Baseline 40 ng/L (0-10) H 04/24/23 16:11 NT-Pro-B Natriuret Pep 4714 pg/mL (0-450) H 04/24/23 16:11 Total Protein 6.8 g/dL (6.6-8.7) 04/24/23 16:11 Albumin 3.4 g/dL (3.5-5.2) L 04/24/23 16:11 Globulin 3.4 g/dL (1.3-4.6) 04/24/23 16:11 Procalcitonin 0.52 ng/mL (0-0.5) H 04/24/23 16:11 All radiology interpretation(s) finalized by discharge Discharge Plan Discharge Condition: Stable Prescriptions: No Action levothyroxine 100 mcg tablet 100 mcg PO DAILY Qty: 90 0RF Rx Instructions: decrease dose atorvastatin 10 mg tablet 10 mg PO DAILY Qty: 30 5RF lisinopril 40 mg tablet 40 mg PO DAILY Qty: 30 5RF Xarelto 20 mg tablet 20 mg PO DAILY Qty: 30 2RF Rx Instructions: must administer with evening meal multivitamin Tablet 1 tab PO DAILY sennosides-docusate sodium [Senna with Docusate Sodium] 8.6-50 mg tablet 1 tab-cap PO BID PRN (Reason: constipation) Qty: 10 0RF Referrals: Marilou Pastrana, ASSURANCE SENIOR MANAGER INSURANCE-C [Primary Care Provider] - Coding Level of Care Code ED [place] Mixer Operator for Srinivas Henriquez
[2023-04-24 16:11] LABS: ABG PH Result 7.42 (7.35-7.45); Alveolar-Arterial Oxygen Gradi 31.3 mmHg (5-10); Arterial Blood Gas Hematocrit 41.8 % (37-47); Base Excess ABG 0.1 mmol/L (-2.0-2.0); Blood Gas Operator Identificat AMH; Blood Gas Sample Site Brachial, left; Blood Gas Sample Type Arterial; Carboxyhemoglobin 0.8 %THgb (0.4-20.1); HCO3 ABG 24.2 mmol/L (22-26); Ionized Calcium Level - ABG 1.2 mmol/L (1.1-1.4); Methemoglobin 0.4 % (0.4-1.5); Oxygen Device BIPAP; Oxygen Saturation ABG 95.2; PO2 ABG 70.6 mmHg (80.0-100.0); PO2 FiO2 Ratio Arterial Blood 0; Potassium Level - ABG 3.7 mmol/L (3.5-5.0); Total Hemoglobin 13.6 g/dL (12-16)
[2023-04-24] MEDS: dexamethasone 10 mg/mL INJ IM (16:21)
[2023-04-24 16:40] LABS: Basophils % 0.2 %; Hematocrit 42.6 % (36-47); Lymphocytes # 0.5 10^3/uL (0.8-4.8); Lymphocytes % 5.6 %; Mean Corpuscular HGB Conc 33.6 g/dL (30-55); Mean Corpuscular Hemoglobin 30.7 pg (27-33); Mean Corpuscular Volume 91.4 fl (85-98); Mean Platelet Volume 9.8 fL (7.4-10.4); Monocytes # 0.5 10^3/uL (0.2-0.9); Monocytes % 5.8 %; Neutrophils # 7.57 10^3/uL (1.8-7.7); Neutrophils % 87.6 %; Nucleated Red Blood Cells % 0 %; Platelet Count 323 10^3/cmm (157-399); Red Blood Count 4.66 10^6/uL (3.85-5.65); Red Cell Distribution Width 16.5 % (12.1-15.1); White Blood Count 8.64 10^3/uL (3.29-11.43)
[2023-04-24] MEDS: ipratropium-albuterol 3 mL Neb INHALATION (16:46)
[2023-04-24 16:53] LABS: Troponin(5th) Baseline 40 ng/L (0-10)
[2023-04-24 17:03] LABS: NT Pro B Type Natriuretic Pept 4714 pg/mL (0-450); Procalcitonin 0.52 ng/mL (0-0.5)
[2023-04-24 17:14] LABS: Alanine Aminotransferase 12 U/L (0-33); Albumin Level 3.4 g/dL (3.5-5.2); Alkaline Phosphatase 125 U/L (35-105); Blood Urea Nitrogen 23 mg/dL (8-23); Calcium 8.9 mg/dL (8.5-10.5); Carbon Dioxide 24 mmol/L (22-29); Chloride 98 mmol/L (98-107); Globulin 3.4 g/dL (1.3-4.6); Glucose 102 mg/dL (65-115); Osmolality Calculated 288 mOsm/kg (285-295); Sodium 137 mmol/L (136-145); Total Bilirubin 0.6 mg/dL (0.15-1.2); Total Protein 6.8 g/dL (6.6-8.7)
[2023-04-24 17:15] LABS: Anion Gap 19.2 (5-19); Aspartate Amino Transferase 20 U/L (0-32); Potassium 4.2 mmol/L (3.5-5.1)
[2023-04-24 17:27] LABS: Slide Review Slide Review Perform
[2023-04-24 17:48] LABS: Lactic Sepsis W/Reflex 1.6 mmol/L (0.5-2.2)
[2023-04-24] MEDS: piperacillin-tazobactam 3.375 GM in sodium chloride 0.9% (plus) 50 ML IV (17:49)
--- NOTE | 2023-04-24 18:00 | ECG_ITS ---
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 Measurements Intervals [place] Rate: 88 P: -55 ND: 106 QRS: 69 QRSD: 89 T: 101 QT: 336 QTc: 408 Interpretive Statements Multifocal atrial rhythm NONSPECIFIC ST & T-WAVE ABNORMALITY Compared to ECG 04/24/2023 15:10:33 Short ND interval now present Atrial fibrillation no longer present T-wave abnormality still present Electronically Signed On 04-25-2023 23:10:00 CDT by Cyndee Mancilla M.D. [id number]
[2023-04-24] MEDS: vancomycin 1,000 MG in sodium chloride 0.9% 250 ML 250 MG IV (18:18)
[2023-04-24 19:08] LABS: Adenovirus Not Detected (NOT DETECT); Chlamydia Pneumoniae Not Detected (NOT DETECT); Coronavirus 229E,HKU1,NL63,OC4 Not Detected (NOT DETECT); Human Metapneumovirus Not Detected (NOT DETECT); Human Rhinovirus/Enterovirus Not Detected (NOT DETECT); Influenza A Not Detected (NOT DETECT); Influenza A H1 Not Detected (NOT DETECT); Influenza A H1-2009 Not Detected (NOT DETECT); Influenza A H3 Not Detected (NOT DETECT); Influenza B Not Detected (NOT DETECT); Mycoplasma Pneumoniae Not Detected (NOT DETECT); Parainfluenza Virus Type 1 Not Detected (NOT DETECT); Parainfluenza Virus Type 2 Not Detected (NOT DETECT); Parainfluenza Virus Type 3 Not Detected (NOT DETECT); Parainfluenza Virus Type 4 Not Detected (NOT DETECT); Respiratory Syncytial Virus A Not Detected (NOT DETECT); Respiratory Syncytial Virus B Not Detected (NOT DETECT); SARS-COV-2 Not Detected (NOT DETECT)
[2023-04-24 19:38] LABS: Troponin 5 2HR 38.92 ng/L (0-10)
[2023-04-24 19:40] LABS: Troponin 5 2HR Delta -1.08 ABS# (0-10)
--- NOTE | 2023-04-24 20:00 | PC.NURSE ---
Report was called to DYAN Mclaughlin on Med-surg. All questions and concerns were addressed at time of report.
[2023-04-24] MEDS: sodium chloride 0.9% 1,000 ML 75 ML IV (20:39)
[2023-04-24 20:42] LABS: Procalcitonin 0.47 ng/mL (0-0.5)
--- NOTE | 2023-04-24 21:40 | P.HP_ITS ---
Providers/Chief Complaint 2 Admitting Physician: Magda Wheeler MD Primary Care Provider: Marilou Pastrana, ARMANDO-C Chief Complaint: sob History of Present Illness Amy Davies is a 87 year old female who was discharged in December last year after hip fracture intervention to a fpc presented today with chief complaint of shortness of breath.In the ER she is febrile No lactic acidemia acidosis leukocytosis, she has been given septic bolus along antibiotics, workup shows CLOVIS mild hypoxia, X-ray showing multifocal pneumonia, self interpretation of x-ray: Bilateral congestion related to CHF exacerbation Patient is stating that she had a sinking spell at home which she describing as lack of energy with shortness of breath, she is stating that she walks independently, does not use a walking aid, does not use oxygen at baseline, no active chest pain fever diarrhea or urinary incontinence. She was brought in for worsening of her generalized weakness and fatigue. At the time of my evaluation she is requiring 5 L, she has been given Lasix Banks catheter placed for accurate urine output measurement Review of Systems 2 Const: Denies: fever(s) Eyes: Denies: change in vision ENMT: Denies: throat pain Card: Denies: chest pain Resp: Reports: dyspnea GI: Denies: abdominal pain : Denies: flank pain Musc: Denies: neck pain Medications/Allergies Home Medications Medication Instructions Recorded Confirmed Last Taken Type atorvastatin 10 mg tablet 10 mg PO DAILY #30 tabs 08/11/22 04/24/23 04/24/23 Rx lisinopril 40 mg tablet 40 mg PO DAILY #30 tabs 09/20/22 04/24/23 04/24/23 Rx levothyroxine 100 mcg tablet 100 mcg PO DAILY #90 tabs 11/30/22 04/24/23 04/24/23 Rx multivitamin 1 tab PO DAILY 12/23/22 04/24/23 04/24/23 History sennosides 8.6 mg-docusate sodium 1 tab-cap PO BID PRN constipation 12/26/22 04/24/23 Unknown Rx 50 mg tablet (Senna with Docusate #10 tabs Sodium) rivaroxaban 20 mg tablet (Xarelto) 20 mg PO DAILY #30 tabs 02/16/23 04/24/23 04/23/23 Rx Allergies Allergy/AdvReac Type Severity Reaction Status Date / Time No Known Allergies Allergy Verified 01/17/23 11:46 PFSH Acute 2 PFSH: Medical History DVT (deep venous thrombosis) Meningioma, cerebral Accelerated hypertension Syncope Bradycardia Rhabdomyolysis Cigarette smoker Adult onset hypothyroidism Mixed hyperlipidemia Essential (primary) hypertension Vitamin D insufficiency Basal cell carcinoma (BCC) Surgical History History of left hip hemiarthroplasty Surgery: Left hip hemiarthroplasty Surgeon: Dr. Fransico Puente DO Date of Surgery: 12/23/2022. History of hip surgery right 2018 History of cataract surgery Family History Other Cancer Congestive heart failure (CHF) Diabetes Social History Smoking and tobacco/nicotine status: never used tobacco/nicotine Second hand smoke exposure: No Alcohol intake: never Substance/Drug Use: never Adopted: No Caregiver/support person: No Lives independently: Yes Marital status: Single Number of children: 2 Current occupational status: retired Do you think of yourself as: Straight/Heterosexual Current gender identity: Female Vitals/I&O/Wt Last Vital Signs Temp 98.2 F 04/24/23 20:21 Pulse 78 04/24/23 20:21 Resp 16 04/24/23 20:21 BP 157/84 04/24/23 20:21 Pulse Ox 90 04/24/23 20:21 O2 Del Method Nasal Cannula 04/24/23 20:40 O2 Flow Rate 5 04/24/23 16:46 FiO2 50 04/24/23 16:00 04/24/23 04/24/23 04/24/23 06:59 14:59 22:59 Intake Total 300 / 300 Balance 300 / 300 Weight last 48 hrs Weight 63.957 kg Weight 61.235 kg Physical Exam 2 Narrative: Pleasant cooperative Clinically euvolemic GCS 15 Currently on 5 L Better breath sounds with mild crackles at bases No active wheezing Nonfocal neuroexam GCS 15 Pleasant and cooperative Data 04/24/23 16:11 04/24/23 16:11 Micro: Microbiology 04/24/23 16:19 Blood Culture - Preliminary Blood SPECIMEN COLLECTED 04/24/23 16:11 Blood Culture - Preliminary Blood SPECIMEN COLLECTED A&P Assessment and plan (1) Essential (primary) hypertension: (2) Prolonged QT interval: (3) Varicose veins of bilateral lower extremities with pain: (4) DVT (deep venous thrombosis): (5) Adult onset hypothyroidism: (6) Vitamin D insufficiency: (7) Hypoplastic kidney: (8) Meningioma, cerebral: (9) Poor short term memory: (10) Acute exacerbation of CHF (congestive heart failure): Plan Acute diastolic CHF exacerbation X-ray self interpretation, vascular congestion Underlying pneumonia not ruled out Low-grade fever with tachypnea tachycardia lactic acid normal No leukocytosis Secondary to seizure exacerbation she is not a candidate for septic bolus She had received antibiotics Blood cultures taken Lactic acid normal Repeat echo No active chest pain BNP is 4700 Etiology of diastolic evaluation is unknown at this point, troponin trending down, sleep apnea? Hypothyroidism? Valvular abnormality versus hypertension Acute on chronic kidney disease Creatinine 1.5 Baseline creatinine seems around 1.1-1.2 Cardiorenal anticipate improvement with diuresis Rule out community-acquired pneumonia For now I will give her vancomycin and Zosyn which can be discontinued if she remains afebrile in next 24 to 48 hours and oxygen, improving In case of febrile events CT scan will be warranted to rule in pneumonia Previous history of hip fracture status post intervention History of DVT Continue Xarelto Hypothyroidism continue with thousand 100 mcg Acute hypoxia related to CHF aspiration Anticipating improvement with diuresis DNR/DNI goals of care discussed with the patient in front of the nurse Attestations 2 Medical Necessity Statement*: Anticipating stay in the hospital course more than 2 midnights for acute hypoxia requiring 5 L which is new with diastolic CHF, Diagnoses Essential (primary) hypertension I10 Prolonged QT interval R94.31 Varicose veins of bilateral lower extremities with pain I83.813 DVT (deep venous thrombosis) I82.409 Adult onset hypothyroidism E03.8 Vitamin D insufficiency E55.9 Hypoplastic kidney Q60.5 Meningioma, cerebral D32.0 Poor short term memory R41.3 Acute exacerbation of CHF (congestive heart failure) I50.9
[2023-04-24] MEDS: FUROsemide 10 mg/mL SDV 4mL 40 MG IVP (22:03)
[2023-04-24 23:24] LABS: Add Urine Microscopic? YES; Bilirubin Urine Neg (Negative); Blood Urine 3+ (Negative); Glucose Urine UA Norm (Normal); Ketones Urine Negative (Negative); Leukocyte Esterase Urine Negative (Negative); Nitrate Urine Negative (Negative); Protein Urine 3+ (Negative); Specific Gravity, Urine 1.015 (1.005-1.030); Urine Appearance Hazy (CLEAR); Urine Color Yellow (Yellow); Urobilinogen Urine Neg (Negative); pH Urine 5 (5-7)
[2023-04-24 23:25] LABS: Bacteria Urine 1+ /hpf; Coarse Granular Casts Urine 0-4 /lpf; Mucus Urine 1+ /hpf
[2023-04-24 23:26] LABS: Add Urine Culture? No
[2023-04-25] VITALS (16 sets, daily range): BP systolic 122–152; BP diastolic 72–83; PULSE 52–95; RESP 16–18; TEMP 36.3–36.7; O2SAT 93–96
[2023-04-25] MEDS: piperacillin-tazobactam 3.375 GM in sodium chloride 0.9% (plus) 50 ML IV ×3 (01:25→17:15)
[2023-04-25 05:19] LABS: Hematocrit 40.7 % (36-47); Mean Corpuscular HGB Conc 32.4 g/dL (30-55); Mean Corpuscular Hemoglobin 29.4 pg (27-33); Mean Corpuscular Volume 90.6 fl (85-98); Mean Platelet Volume 9.9 fL (7.4-10.4); Platelet Count 332 10^3/cmm (157-399); Red Blood Count 4.49 10^6/uL (3.85-5.65); Red Cell Distribution Width 16.6 % (12.1-15.1); White Blood Count 8.71 10^3/uL (3.29-11.43)
[2023-04-25 05:42] LABS: INR 0.99 (0.8-1.2)
[2023-04-25 05:50] LABS: Blood Urea Nitrogen 28 mg/dL (8-23); Calcium 8.7 mg/dL (8.5-10.5); Carbon Dioxide 25 mmol/L (22-29); Chloride 101 mmol/L (98-107); Glucose 135 mg/dL (65-115); Magnesium 2.1 mg/dL (1.7-2.3); Osmolality Calculated 296 mOsm/kg (285-295); Sodium 139 mmol/L (136-145)
[2023-04-25 05:51] LABS: Anion Gap 17.2 (5-19); Potassium 4.2 mmol/L (3.5-5.1)
[2023-04-25 06:40] LABS: Slide Review Slide Review Perform
[2023-04-25 06:41] LABS: Absolute Segmented Neutrophil 6.3 10/cmm (1.6-7.1); Band Neutrophils Absolute 1.2 10^3/cmm (0.0-1.2); Segmented Neutrophils 72 %; Total Cells Counted 100 (0-100)
[2023-04-25 06:43] LABS: Eosinophils 0 %; Lymphocytes 10 %; Lymphocytes Absolute 0.9 10^3/cmm (1.2-3.4); Monocytes Absolute 0.2 10^3/cmm (0.1-0.6)
[2023-04-25 06:44] LABS: Absolute Neutrophil 7.5 10^3/cmm (1.4-6.5); Platelet Estimate Normal (Normal)
[2023-04-25 06:45] LABS: Anisocytosis Trace; Giant Platelets Trace
[2023-04-25] MEDS: ipratropium-albuterol 3 mL Neb INHALATION ×2 (08:27→11:16)
[2023-04-25] MEDS: rivaroxaban 10 mg Tablet 20 MG PO (08:37)
[2023-04-25] MEDS: levothyroxine 100 mcg Tablet PO (08:37)
[2023-04-25] MEDS: multivitamin therapeutic Tablet 1 TAB PO (08:37)
[2023-04-25] MEDS: atorvastatin 40 mg Tablet 10 MG PO (08:37)
--- NOTE | 2023-04-25 09:18 | PC.CHAP ---
Pastoral Care Encounter/Spiritual Assessment Type of Contact [] Declined citrix administrator visit [] Patient/Family/Request visit [] Outpatient visit [] Follow-up visit [] Physician referral [] Code/Alert [x] Routine visit [] Staff referral [] Actively dying [] Patient sleeping [] Family support [] [] Out of room [] Palliative care [] [] Receiving care in room [] Pre-surgical visit [] Trauma [] Long length of stay [] ICU visit [] Other: Relational/Emotional Strength [x] Patient feels connected with others/family/visitors/staff [] Distress [] Loneliness/isolation [] Abandonment Spirituality of Patient [x] Person of Darlene [] Attends Bahai of their Darlene [x] Believes in Prayer [] Reads Bible or Islam materials [] There are Spiritual issues to be addressed [place] Interventions [x] Prayer [x] Active listening [] Non-anxious presence [x] Spiritual/emotional support [] Crisis/trauma care [] Spiritual counseling [] Bereavement support [] Provided bereavement packet [] Provided Bible/devotional materials [] Provided toy/stuffed animal, coloring book to patient or family member [] Provided Communion [] Anointing/[place] [] Salvation [x] Completed spiritual assessment [] Other: Impact on Illness or Injury [] Angry [] Fearful [] Anxious [] Often cries [] Exhaustion [] Unable to work [] Unable to attend advent [] Unable to walk/stand [] Unable to read [] Unable to drive [] Unable to eat/drink [] Unable to sleep [] Unable to be with family [] Patient intubated [] Other: Summary Time spent with patient 5 min
--- NOTE | 2023-04-25 09:24 | CT_ITS ---
WS: [id number] CT CHEST, ABDOMEN AND PELVIS NONCONTRAST HISTORY: infection? bandemia TECHNIQUE: Contiguous 5 mm axial imaging performed through the chest, abdomen and pelvis without IV c ontrast, oral contrast has been been provided. Coronal and sagittal reformats chest. Coronal and sagi ttal reformats through the abdomen and pelvis. All CT scans at [facility] use at least one of these dose optimization techniques: automated exposure control; mA and/or kV adjustment per patient size (includes targeted exams where dose is matched to clinical indication); or iterative reconstruct ion. CONTRAST: None DLP: 517.76 mGy.cm COMPARISON: 10/27/2022 and 10/12/[address]: Extensive bilateral tree-in-bud airspace disease and interstitial thickening. More focal co nsolidations at the lung bases in part are atelectasis. No pleural effusion or pneumothorax. Mild car diac enlargement. Extensive coronary artery calcifications. No pericardial effusion. Moderate atheros clerosis aorta and great vessels. No mediastinal or hilar adenopathy on this unenhanced exam. Diffuse soft tissue anasarca. Abdomen CT: Continued diffuse soft tissue anasarca throughout the abdomen. Heavily calcified abdomina l aorta and mesenteric arteries. Patient is at risk for GI tract ischemia. No free air is identified. The visualized liver, spleen, gallbladder and pancreas are negative on this unenhanced study with mo tion. Poorly visualized adrenal glands. RIGHT kidney is normal size. Severe atrophy LEFT kidney. Increased throughout the GI tract. No colitis. No free air. Very limited evaluation of the GI tract w ithout IV contrast and due to motion. Pelvic CT: No free fluid in the pelvis. Extensive calcifications in the iliac and femoral arteries. S oft tissue anasarca. Osteoporotic compression fractures at the thoracolumbar junction. No new fracture. Bilateral hip pros theses. IMPRESSION: 1. Quality of this examination is significantly compromised by motion and noncontrast evaluation. 2. Diffuse soft tissue anasarca. 3. Diffuse bilateral tree-in-bud airspace disease throughout both lungs. Most consistent with viral type pneumonia/acute bronchiolitis. 4. Moderate atherosclerosis thoracic aorta and great vessels. 5. Severe atherosclerosis abdominal aorta with extension into the iliac arteries. Severely calcified mesenteric arteries. Patient at risk for ischemia. 6. No free air is identified but limited due to motion. 7. Severe atrophy LEFT kidney.
--- NOTE | 2023-04-25 12:34 | P.PN_ITS ---
Subjective 2 Subjective: Seen this morning. No acute events overnight. Patient has a 14% bandemia this morning. Afebrile overnight however. Says she do not know why she is in the hospital. She says she found herself in the hospital bed and she has been told she has pneumonia but she is not sure about it. Otherwise she is alert oriented x 3. It seems she might have been confused when she first got to the hospital. Saturating 94% on nasal cannula. Temp 98.1 Vital stable Sitting up in chair resting comfortably. Vitals/I&O/Wt Last Vital Signs Temp 98.1 F 04/25/23 11:47 Pulse 90 04/25/23 11:47 Resp 18 04/25/23 11:47 BP 122/81 04/25/23 11:47 Pulse Ox 94 04/25/23 11:47 O2 Del Method Nasal Cannula 04/25/23 11:47 O2 Flow Rate 4 04/25/23 11:16 FiO2 50 04/24/23 16:00 04/24/23 04/25/23 04/25/23 22:59 06:59 14:59 Intake Total 398.75 / 398.75 170 / 568.75 240 / 240 Output Total 900 / 900 Balance 398.75 / 398.75 -730 / -331.25 240 / 240 Weight last 48 hrs Weight 65.68 kg Weight 63.957 kg Weight 61.235 kg Physical Exam 2 Narrative: Pleasant cooperative Clinically euvolemic GCS 15 Currently on 5 L Normal S1-S2 Abdomen soft nontender No active wheezing Nonfocal neuroexam GCS 15 Pleasant and cooperative Lungs clear to auscultation with very mild crackles at bases, rhonchi and wheezes throughout lung alvarez. Urinary Catheter Management: Banks: Cath Placed During This Visit: yes Reason for Continuing Indwelling Catheter: Other Urinary Catheter Date of Insertion: 04/24/23 Urinary Catheter Time of Insertion: 22:29 Data 04/25/23 04:35 04/25/23 04:35 Micro: Microbiology 04/24/23 16:19 Blood Culture - Preliminary Blood SPECIMEN COLLECTED 04/24/23 16:11 Blood Culture - Preliminary Blood SPECIMEN COLLECTED A&P Assessment and plan (1) Essential (primary) hypertension: (2) Prolonged QT interval: (3) Varicose veins of bilateral lower extremities with pain: (4) DVT (deep venous thrombosis): (5) Adult onset hypothyroidism: (6) Vitamin D insufficiency: (7) Hypoplastic kidney: (8) Meningioma, cerebral: (9) Poor short term memory: (10) Acute exacerbation of CHF (congestive heart failure): Plan Acute diastolic CHF exacerbation Initial x-ray on admission did show some vascular congestion. Underlying pneumonia not ruled out Low-grade fever with tachypnea tachycardia lactic acid normal No leukocytosis Secondary to seizure exacerbation she is not a candidate for septic bolus She had received antibiotics Blood cultures taken Lactic acid normal Repeat echo No active chest pain BNP is 4700 Etiology of diastolic evaluation is unknown at this point, troponin trending down, sleep apnea? Hypothyroidism? Valvular abnormality versus hypertension. Echo is pending at this time Acute on chronic kidney disease Creatinine 1.6 today Baseline creatinine seems around 1.1-1.2 Cardiorenal anticipate improvement with diuresis #Leukocytosis, bandemia, left shift #Question of community-acquired pneumonia? #Bronchitis Continue vancomycin and Zosyn Check chest CT abdomen pelvis to rule other sources of infection. In case of febrile events CT scan will be warranted to rule in pneumonia Respiratory viral panel is negative UA sample not a clean-catch on admission. We will repeat. Blood cultures obtained, sputum culture Gram stain, urine culture pending I will order Solu-Medrol 40 every 12 hours for bronchitis. Patient does have rhonchi and wheezes bilateral lung alvarez Previous history of hip fracture status post intervention History of DVT Continue Xarelto Hypothyroidism?continue levothyroxine 100 daily Acute hypoxia related to CHF aspiration Anticipating improvement with diuresis DNR/DNI -discussion done by admitting physician Attestations 2 Medical Necessity Statement*: Continue to manage in hospital for CHF exacerbation, CLOVIS, bronchitis, further workup of leukocytosis left shift or bandemia. Diagnoses Essential (primary) hypertension I10 Prolonged QT interval R94.31 Varicose veins of bilateral lower extremities with pain I83.813 DVT (deep venous thrombosis) I82.409 Adult onset hypothyroidism E03.8 Vitamin D insufficiency E55.9 Hypoplastic kidney Q60.5 Meningioma, cerebral D32.0 Poor short term memory R41.3 Acute exacerbation of CHF (congestive heart failure) I50.9
[2023-04-25] MEDS: methylPREDNISolone sod succ 40 mg/mL INJ IVP (14:25)
[2023-04-25] MEDS: vancomycin 750 MG in sodium chloride 0.9% 250 ML 250 MG IV (16:02)
--- NOTE | 2023-04-25 18:18 | PC.NURSE ---
SHIFT SUMMARY Patient has done well today. Ambulated in the short with PT. She has sat up in a chair most of the day. Oxygen titrated from 5L to 2L NC. Appetite improving. Patient had productive cough this AM. Specimen cup at bedside, but patient has not coughed phlegm into the cup. Currently up in the chair visiting with daughter.
[2023-04-25] MEDS: FUROsemide 10 mg/mL SDV 4mL 40 MG IVP (21:17)
--- NOTE | 2023-04-25 21:44 | USCV_ITS ---
Amy Davies Age: 87 Gender: F : 1935 Exam Date: 04/25/2023 03:19 Ordering Phys: Kevin Glover MD Technologist: DOMINIQUE [place]am [place] [facility] [place]: chf sob BP: 157 / 84 HR: 58 Rhythm: Sinus Technical Quality: Adequate MEASUREMENTS (Male / Female) Normal Values 2D ECHO LV Diastolic Diameter PLAX 3.4 cm 4.2 - 5.9 / 3.9 - 5.3 cm LV Systolic Diameter PLAX 2.7 cm IVS Diastolic Thickness 1.8 cm 0.6 - 1.0 / 0.6 - 0.9 cm IVS Systolic Thickness 1.7 cm LVPW Diastolic Thickness 1.3 cm 0.6 - 1.0 / 0.6 - 0.9 cm LVPW Systolic Thickness 1.3 cm LVOT Diameter 1.8 cm LV Ejection Fraction 2D Teich 43.3 % LV Ejection Fraction MOD 2C 64.3 % LV Ejection Fraction 2C AL 67.6 % LA Diameter 3.6 cm Aorta at Sinotubular Diameter 2.8 cm IVC Diameter 1.3 cm M-MODE LA Ao Ratio MM 1.2 AV Cusp Separation MM 1.7 cm DOPPLER AV Peak Velocity 108.0 cm/s LVOT Peak Velocity 70.0 cm/s AV Area Cont Eq vti 1.7 cm squared AV Area Cont Eq pk 1.6 cm squared MV Peak Velocity 77.0 cm/s MV Area PHT 2.4 cm squared Mitral E to A Ratio 0.8 PV Peak Velocity 82.0 cm/s FINDINGS Left Ventricle Normal left ventricular size and systolic function, EF 64%.moderate left ventricular hypertrophy. No regional wall motion abnormalities.Grade I/IV diastolic dysfunction (abnormal relaxation filling pattern), normal to mildly elevated filling pressures. Right Ventricle The right ventricle is normal in size and function. Right Atrium The right atrium is normal in size. Left Atrium Mildly increased left atrial size. Mitral Valve No gross abnormality noted no gross abnormalities noted Aortic Valve Thickened aortic valve. Trace aortic valve regurgitation. Tricuspid Valve No gross abnormalities noted Pulmonic Valve No gross abnormalities noted Pericardium No pericardial effusion. Aorta Normal ascending aorta dimension. IVC The inferior vena cava appears normal. CONCLUSIONS Normal left ventricular size and systolic function, EF 64%.moderate left ventricular hypertrophy. No regional wall motion abnormalities.Grade I/IV diastolic dysfunction (abnormal relaxation filling pattern), normal to mildly elevated filling pressures. Mildly increased left atrial size. Thickened aortic valve. Trace aortic valve regurgitation. There is no pericardial effusion. There are no intracardiac masses. Compared to the study from 09/11/2022, there may not be significant change Dr Cyndee Mancilla MD FAC (Electronically Signed) Final Date: 25 April 2023 13:19 S
[2023-04-26] VITALS (8 sets, daily range): BP systolic 137–165; BP diastolic 68–90; PULSE 52–73; RESP 16–18; TEMP 36.6–36.9; O2SAT 92–96
[2023-04-26] MEDS: piperacillin-tazobactam 3.375 GM in sodium chloride 0.9% (plus) 50 ML IV ×3 (01:24→17:46)
[2023-04-26] MEDS: methylPREDNISolone sod succ 40 mg/mL INJ IVP ×2 (01:24→14:03)
[2023-04-26 05:13] LABS: Basophils # 0.1 10^3/uL (0.0-0.1); Basophils % 0.8 %; Hematocrit 35.4 % (36-47); Lymphocytes # 0.8 10^3/uL (0.8-4.8); Lymphocytes % 7.1 %; Mean Corpuscular HGB Conc 33.6 g/dL (30-55); Mean Corpuscular Hemoglobin 30.3 pg (27-33); Mean Corpuscular Volume 90.1 fl (85-98); Mean Platelet Volume 9.7 fL (7.4-10.4); Monocytes # 0.2 10^3/uL (0.2-0.9); Monocytes % 1.3 %; Neutrophils # 10.65 10^3/uL (1.8-7.7); Neutrophils % 89.4 %; Nucleated Red Blood Cells % 0 %; Platelet Count 311 10^3/cmm (157-399); Red Blood Count 3.93 10^6/uL (3.85-5.65); Red Cell Distribution Width 16.5 % (12.1-15.1)
[2023-04-26 05:46] LABS: Alanine Aminotransferase 20 U/L (0-33); Albumin Level 2.9 g/dL (3.5-5.2); Alkaline Phosphatase 97 U/L (35-105); Anion Gap 19.8 (5-19); Aspartate Amino Transferase 30 U/L (0-32); Blood Urea Nitrogen 56 mg/dL (8-23); Calcium 8.6 mg/dL (8.5-10.5); Carbon Dioxide 22 mmol/L (22-29); Chloride 97 mmol/L (98-107); Creatinine Clr Calc Pharmacy 18.5326; Globulin 3.7 g/dL (1.3-4.6); Glucose 150 mg/dL (65-115); Magnesium 2.1 mg/dL (1.7-2.3); Osmolality Calculated 298 mOsm/kg (285-295); Potassium 3.8 mmol/L (3.5-5.1); Sodium 135 mmol/L (136-145); Total Bilirubin 0.2 mg/dL (0.15-1.2); Total Protein 6.6 g/dL (6.6-8.7)
[2023-04-26] MEDS: atorvastatin 40 mg Tablet 10 MG PO (08:55)
[2023-04-26] MEDS: levothyroxine 100 mcg Tablet PO (08:55)
[2023-04-26] MEDS: multivitamin therapeutic Tablet 1 TAB PO (08:55)
[2023-04-26] MEDS: rivaroxaban 10 mg Tablet 20 MG PO (08:56)
--- NOTE | 2023-04-26 10:47 | PC.SOCIAL ---
Pg 2 IMM Explained to pt's brother Pg 2 IMM. no questions voiced. Provided pt a copy. Initialed, dated, & timed a copy & placed in chart.
--- NOTE | 2023-04-26 14:16 | P.PN_ITS ---
Subjective 2 Subjective: Seen this morning. Nursing staff reported that patient is confused however patient's daughter is at bedside and says that this is patient's normal self and her mental status is at her baseline at this time. Vitals are stable. Patient is now on room air. She was diuresed. Creatinine went up to 2.3. Lasix has been stopped. Vitals/I&O/Wt Last Vital Signs Temp 98.1 F 04/26/23 12:00 Pulse 67 04/26/23 12:00 Resp 16 04/26/23 12:00 BP 137/68 04/26/23 12:00 Pulse Ox 93 04/26/23 12:00 O2 Del Method Room Air 04/26/23 12:00 O2 Flow Rate 2 04/26/23 08:05 FiO2 50 04/24/23 16:00 04/25/23 04/26/23 04/26/23 22:59 06:59 14:59 Intake Total 540 / 830 290 / 1120 1010 / 1010 Output Total 200 / 200 1400 / 1600 400 / 400 Balance 340 / 630 -1110 / -480 610 / 610 Weight last 48 hrs Weight 67.857 kg Weight 65.68 kg Weight 63.957 kg Weight 61.235 kg Physical Exam 2 Narrative: Pleasant cooperative Clinically euvolemic GCS 15 On room air at this time. Normal S1-S2 Abdomen soft nontender No active wheezing Nonfocal neuroexam GCS 15 Pleasant and cooperative Lungs clear to auscultation mainly with very mild rhonchi throughout lung alvarez. No wheezes or crackles appreciated today.. Urinary Catheter Management: Banks: Cath Placed During This Visit: yes Reason for Continuing Indwelling Catheter: Acute Urinary Retention or Obstruction Urinary Catheter Date of Insertion: 04/24/23 Urinary Catheter Time of Insertion: 22:29 Data 04/26/23 05:05 04/26/23 05:05 Micro: Microbiology 04/24/23 16:19 Blood Culture - Preliminary Blood NEGATIVE TO DATE 04/24/23 16:11 Blood Culture - Preliminary Blood NEGATIVE TO DATE A&P Assessment and plan (1) Essential (primary) hypertension: (2) Prolonged QT interval: (3) Varicose veins of bilateral lower extremities with pain: (4) DVT (deep venous thrombosis): (5) Adult onset hypothyroidism: (6) Vitamin D insufficiency: (7) Hypoplastic kidney: (8) Meningioma, cerebral: (9) Poor short term memory: (10) Acute exacerbation of CHF (congestive heart failure): Plan Acute diastolic CHF exacerbation Initial x-ray on admission did show some vascular congestion. Underlying pneumonia not ruled out Low-grade fever with tachypnea tachycardia lactic acid normal No leukocytosis Secondary to seizure exacerbation she is not a candidate for septic bolus She had received antibiotics Blood cultures taken Lactic acid normal Repeat echo No active chest pain BNP is 4700 Etiology of diastolic evaluation is unknown at this point, troponin trending down, sleep apnea? Hypothyroidism? Valvular abnormality versus hypertension. EF 64%. Grade 1 x 4 diastolic dysfunction on echo. Stop Lasix at this time. Start gentle hydration normal saline 100 cc/h. Acute on chronic kidney disease Creatinine 1.6 today Baseline creatinine seems around 1.1-1.2 Cardiorenal anticipate improvement with diuresis, however I did not. Creatinine went up to 2.3. I will start gentle fluid hydration at normal saline 100 cc/h for 1 L total. #Leukocytosis, bandemia, left shift #Question of community-acquired pneumonia? #Bronchitis Continue vancomycin and Zosyn Check chest CT abdomen pelvis to rule other sources of infection. In case of febrile events CT scan will be warranted to rule in pneumonia Respiratory viral panel is negative UA sample not a clean-catch on admission. We will repeat. Blood cultures obtained, sputum culture Gram stain, urine culture pending Continue Solu-Medrol 40 every 12 hours. Previous history of hip fracture status post intervention History of DVT Continue Xarelto Hypothyroidism?continue levothyroxine 100 daily Acute hypoxia related to CHF aspiration Anticipating improvement with diuresis DNR/DNI -discussion done by admitting physician Attestations 2 Medical Necessity Statement*: Continue to manage in hospital for CHF exacerbation, CLOVIS, bronchitis, further workup of leukocytosis left shift or bandemia. Diagnoses Essential (primary) hypertension I10 Prolonged QT interval R94.31 Varicose veins of bilateral lower extremities with pain I83.813 DVT (deep venous thrombosis) I82.409 Adult onset hypothyroidism E03.8 Vitamin D insufficiency E55.9 Hypoplastic kidney Q60.5 Meningioma, cerebral D32.0 Poor short term memory R41.3 Acute exacerbation of CHF (congestive heart failure) I50.9
[2023-04-26] MEDS: sodium chloride 0.9% 1,000 ML 100 ML IV (15:07)
[2023-04-26] MEDS: ipratropium-albuterol 3 mL Neb INHALATION ×2 (15:34→20:05)
[2023-04-26] MEDS: vancomycin 750 MG in sodium chloride 0.9% 250 ML 250 MG IV (17:46)
[2023-04-27] VITALS: BP 136/65; PULSE 57; RESP 18; TEMP 36.4; O2SAT 96
[2023-04-27] MEDS: methylPREDNISolone sod succ 40 mg/mL INJ IVP (02:12)
[2023-04-27] MEDS: piperacillin-tazobactam 3.375 GM in sodium chloride 0.9% (plus) 50 ML IV ×2 (02:27→09:21)
[2023-04-27 04:00] VITALS: BP 189/78; PULSE 57; RESP 19; TEMP 36.5; O2SAT 94
[2023-04-27 05:05] LABS: Basophils % 0.3 %; Hematocrit 36.5 % (36-47); Lymphocytes # 0.7 10^3/uL (0.8-4.8); Lymphocytes % 6.9 %; Mean Corpuscular HGB Conc 32.9 g/dL (30-55); Mean Corpuscular Volume 91.3 fl (85-98); Mean Platelet Volume 9.9 fL (7.4-10.4); Monocytes # 0.3 10^3/uL (0.2-0.9); Monocytes % 2.5 %; Neutrophils # 9.18 10^3/uL (1.8-7.7); Neutrophils % 87.6 %; Nucleated Red Blood Cells % 0 %; Platelet Count 330 10^3/cmm (157-399); Red Cell Distribution Width 16.9 % (12.1-15.1); White Blood Count 10.47 10^3/uL (3.29-11.43)
[2023-04-27 05:30] LABS: Anion Gap 18.2 (5-19); Blood Urea Nitrogen 55 mg/dL (8-23); Calcium 8.6 mg/dL (8.5-10.5); Carbon Dioxide 25 mmol/L (22-29); Chloride 103 mmol/L (98-107); Creatinine Clr Calc Pharmacy 21.3125; Glucose 121 mg/dL (65-115); Osmolality Calculated 310 mOsm/kg (285-295); Potassium 4.2 mmol/L (3.5-5.1); Sodium 142 mmol/L (136-145)
[2023-04-27 08:00] VITALS: BP 171/90; PULSE 60; PULSE 67; RESP 17; RESP 20; TEMP 36.4; O2SAT 90; O2SAT 92
[2023-04-27] MEDS: rivaroxaban 10 mg Tablet 20 MG PO (09:20)
[2023-04-27] MEDS: atorvastatin 40 mg Tablet 10 MG PO (09:20)
[2023-04-27] MEDS: multivitamin therapeutic Tablet 1 TAB PO (09:20)
[2023-04-27] MEDS: levothyroxine 100 mcg Tablet PO (09:20)
[2023-04-27 12:00] VITALS: PULSE 51; RESP 20; O2SAT 93
--- NOTE | 2023-04-27 12:16 | PM.DCS ---
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 Baseline creatinine probably around 1.4-1.5. Patient was diuresed with Lasix 40 IV daily x 2 doses total and creatinine worsened further. She is now on room air. Lasix was stopped and patient was placed back on gentle hydration. Creatinine is improving and trending down now. At admission she also had leukocytosis bandemia with left shift and there was suspicion of community-acquired pneumonia. CT abdomen pelvis and chest done. Most likely bronchiolitis with component of acute viral pneumonia versus acute bronchitis. Patient was given IV steroids during hospitalization and antibiotics. She improved and is now on room air. At discharge I will hold off on prescribing oral Lasix secondary to CLOVIS and patient is pretty euvolemic at this time. I will defer that to primary care as an outpatient. Patient will need to be reassessed as an outpatient and if she continues to have fluid retention she may need to start oral Lasix. I have also given her prescription for repeat BMP. She is to see Dr. Mancilla after discharge. At this time we will discharge her on low-dose steroid, antibiotic course to complete for another 10 days. She is to follow-up with primary care doctor and cardiology after discharge. Family in agreement. Physical Exam Narrative: Pleasant cooperative Clinically euvolemic GCS 15 On room air at this time. Normal S1-S2 Abdomen soft nontender No active wheezing Nonfocal neuroexam GCS 15 Pleasant and cooperative Lungs clear to auscultation with no wheezes or rhonchi. No wheezes or crackles appreciated today.. Urinary Catheter Management: Banks: Cath Placed During This Visit: yes Reason for Continuing Indwelling Catheter: Other Urinary Catheter Date of Insertion: 04/24/23 Urinary Catheter Time of Insertion: 22:29 Discharge Data Studies Completed and Pending Completed Studies During Hospitalization Category Date Time Status CT chest abdomen pelvis [[place] [id number] Cat Scan 04/25/23 09:24 Completed ] Stat XR chest 1V portable [id number] Stat Exams 04/24/23 15:54 Completed CV. echo complete* [id number] Routine Ultrasound 04/25/23 21:44 Completed Pending at discharge Category Date Time Status Blood Culture Stat Lab 04/24/23 16:19 Results Sputum Culture and Gram Stain Stat Lab 04/24/23 19:42 Uncollected Vancomycin Trough Timed Lab 04/27/23 16:00 Ordered Radiology Impressions Chest X-Ray 04/24/23 15:54 IMPRESSION: 1. Moderate patchy bilateral airspace opacities due to multifocal pneumonia, favored over interstitial edema. 2. However, a component of CHF may be present given increased cardiac silhouette size and pulmonary vascular congestion compared to prior imaging. Laboratory Results WBC 10.47 10^3/uL (3.29-11.43) 04/27/23 04:28 RBC 4.00 10^6/uL (3.85-5.65) 04/27/23 04:28 Hgb 12.00 g/dL (11.27-16.99) 04/27/23 04:28 Hct 36.5 % (36-47) 04/27/23 04:28 MCV 91.3 fl (85-98) 04/27/23 04:28 MCH 30.0 pg (27-33) 04/27/23 04:28 MCHC 32.9 g/dL (30-55) 04/27/23 04:28 RDW 16.9 % (12.1-15.1) H 04/27/23 04:28 Plt Count 330 10^3/cmm (157-399) 04/27/23 04:28 MPV 9.9 fL (7.4-10.4) 04/27/23 04:28 Neut % (Auto) 87.6 % 04/27/23 04:28 Lymph % (Auto) 6.9 % 04/27/23 04:28 [place] % (Auto) 2.5 % 04/27/23 04:28 Eos % (Auto) 0.0 % 04/27/23 04:28 Baso % (Auto) 0.3 % 04/27/23 04:28 Neut # (Auto) 9.18 10^3/uL (1.8-7.7) H 04/27/23 04:28 Lymph # (Auto) 0.7 10^3/uL (0.8-4.8) L 04/27/23 04:28 [place] # (Auto) 0.3 10^3/uL (0.2-0.9) 04/27/23 04:28 Eos # (Auto) 0.0 10^3/uL (0.0-0.8) 04/27/23 04:28 Baso # (Auto) 0.0 10^3/uL (0.0-0.1) 04/27/23 04:28 Nucleated RBC % (auto) 0 % 04/27/23 04:28 Total Counted 100 (0-100) 04/25/23 04:35 Atypical Lymphs % 0.0 % (0-5) 04/25/23 04:35 Absolute Neutrophils 7.5 10^3/cmm (1.4-6.5) H 04/25/23 04:35 Segmented Neutrophils 72 % 04/25/23 04:35 Abs Segm Neuts (Man) 6.3 10/cmm (1.6-7.1) 04/25/23 04:35 Band Neutrophils 14.0 % 04/25/23 04:35 Abs Band Neuts (Man) 1.2 10^3/cmm (0.0-1.2) 04/25/23 04:35 Absolute Lymphocytes 0.9 10^3/cmm (1.2-3.4) L 04/25/23 04:35 Lymphocytes (Manual) 10 % 04/25/23 04:35 Monocytes (Manual) 2.0 % 04/25/23 04:35 Absolute Monocytes 0.2 10^3/cmm (0.1-0.6) 04/25/23 04:35 Eosinophils (Manual) 0 % 04/25/23 04:35 Absolute Eosinophils 0.0 10^3/cmm (0.0-0.7) 04/25/23 04:35 Basophils (Manual) 0.0 % 04/25/23 04:35 Absolute Basophils 0.0 10^3/cmm (0.0-0.2) 04/25/23 04:35 Myelocytes 2.0 % 04/25/23 04:35 Nucleated RBCs # 0.0 /100WBC 04/27/23 04:28 Platelet Estimate Normal (Normal) 04/25/23 04:35 Giant Platelets Trace 04/25/23 04:35 Anisocytosis Trace 04/25/23 04:35 PT 13.40 SECONDS (12.1-14.9) 04/25/23 04:35 INR 0.99 (0.8-1.2) 04/25/23 04:35 Specimen Type Arterial 04/24/23 16:00 Sample Site Brachial, left 04/24/23 16:00 ABG pH 7.42 (7.35-7.45) 04/24/23 16:00 ABG pCO2 37.0 mmHg (35-45) 04/24/23 16:00 ABG pO2 70.6 mmHg (80.0-100.0) L 04/24/23 16:00 ABG PO2/FiO2 Ratio 0 04/24/23 16:00 ABG HCO3 24.2 mmol/L (22-26) 04/24/23 16:00 ABG O2 Saturation 95.2 04/24/23 16:00 ABG Base Excess 0.1 mmol/L (-2.0-2.0) 04/24/23 16:00 Guilherme Test N/a 04/24/23 16:00 A-a O2 Gradient 31.3 mmHg (5-10) H 04/24/23 16:00 Hematocrit 41.8 % (37-47) 04/24/23 16:00 Hgb O2 Saturation 94.0 % (95-100) L 04/24/23 16:00 Carboxyhemoglobin 0.8 %THgb (0.4-20.1) 04/24/23 16:00 Methemoglobin 0.4 % (0.4-1.5) 04/24/23 16:00 Total Hemoglobin 13.6 g/dL (12-16) 04/24/23 16:00 Sodium 139.0 mmol/L (131-143) 04/24/23 16:00 Potassium 3.7 mmol/L (3.5-5.0) 04/24/23 16:00 Glucose 106.0 mg/dL (70-115) 04/24/23 16:00 Ionized Calcium 1.2 mmol/L (1.1-1.4) 04/24/23 16:00 O2 Delivery Device Bipap 04/24/23 16:00 FiO2 50.0 % 04/24/23 16:00 Media Operator ID Amh 04/24/23 16:00 Sodium 142 mmol/L (136-145) 04/27/23 04:28 Potassium 4.2 mmol/L (3.5-5.1) 04/27/23 04:28 Chloride 103 mmol/L (98-107) 04/27/23 04:28 Carbon Dioxide 25 mmol/L (22-29) 04/27/23 04:28 Anion Gap 18.2 (5-19) 04/27/23 04:28 BUN 55 mg/dL (8-23) H 04/27/23 04:28 Creatinine 2.0 mg/dL (0.5-0.9) H 04/27/23 04:28 GFR Calculation Not Reportable 04/27/23 04:28 Glucose 121 mg/dL (65-115) H 04/27/23 04:28 Calculated Osmolality 310 mOsm/kg (285-295) H 04/27/23 04:28 Lactic Acid 1.6 mmol/L (0.5-2.2) 04/24/23 16:11 Calcium 8.6 mg/dL (8.5-10.5) 04/27/23 04:28 Magnesium 2.0 mg/dL (1.7-2.3) 04/27/23 04:28 Total Bilirubin 0.2 mg/dL (0.15-1.2) 04/26/23 05:05 AST 30 U/L (0-32) 04/26/23 05:05 ALT 20 U/L (0-33) 04/26/23 05:05 Alkaline Phosphatase 97 U/L (35-105) 04/26/23 05:05 Troponin T Baseline 40 ng/L (0-10) H 04/24/23 16:11 Troponin T 120 Minute 38.92 ng/L (0-10) H 04/24/23 18:46 Delta Troponin T -1.08 ABS# (0-10) L 04/24/23 18:46 Troponin T Hi Sens 6Hr 33.50 ng/L (0-10) H 04/24/23 21:53 Troponin T Hi Sens 6Hr Delta -6.50 ng/L (0-12) L 04/24/23 21:53 NT-Pro-B Natriuret Pep 4714 pg/mL (0-450) H 04/24/23 16:11 Total Protein 6.6 g/dL (6.6-8.7) 04/26/23 05:05 Albumin 2.9 g/dL (3.5-5.2) L 04/26/23 05:05 Globulin 3.7 g/dL (1.3-4.6) 04/26/23 05:05 Procalcitonin 0.52 ng/mL (0-0.5) H 04/24/23 16:11 Urine Color Yellow (Yellow) 04/24/23 22:57 Urine Appearance Hazy (CLEAR) A 04/24/23 22:57 Urine pH 5 (5-7) 04/24/23 22:57 Ur Specific [place] 1.015 (1.005-1.030) 04/24/23 22:57 Urine Protein 3+ (Negative) H 04/24/23 22:57 Urine Glucose (UA) Norm (Normal) 04/24/23 22:57 Urine Ketones Negative (Negative) 04/24/23 22:57 Urine Blood 3+ (Negative) H 04/24/23 22:57 Urine Nitrate Negative (Negative) 04/24/23 22:57 Urine Bilirubin Neg (Negative) 04/24/23 22:57 Urine Urobilinogen Neg mg/dL (Negative) 04/24/23 22:57 Ur Leukocyte Esterase Negative (Negative) 04/24/23 22:57 Urine RBC 5-10 /hpf (0-2) H 04/24/23 22:57 Urine WBC None /hpf (0-5) 04/24/23 22:57 Ur Squamous Epith Cells 10-15 /hpf (0-5) H 04/24/23 22:57 Amorphous Sediment Not Reportable 04/24/23 22:57 Urine Bacteria 1+ /hpf (NONE) H 04/24/23 22:57 Coarse Granular Casts 0-4 /lpf H 04/24/23 22:57 Urine Mucus 1+ /hpf 04/24/23 22:57 Adenovirus (PCR) Not detected (NOT DETECT) 04/24/23 16:30 C. pneumoniae DNA (PCR) Not detected (NOT DETECT) 04/24/23 16:30 Coronavirus 229E (PCR) Not detected (NOT DETECT) 04/24/23 16:30 Human Metapneumovir PCR Not detected (NOT DETECT) 04/24/23 16:30 Influenza A (H1) PCR Not detected (NOT DETECT) 04/24/23 16:30 Influ A (H1/09) PCR Not detected (NOT DETECT) 04/24/23 16:30 Influenza A (H3) PCR Not detected (NOT DETECT) 04/24/23 16:30 Influenza Type A (PCR) Not detected (NOT DETECT) 04/24/23 16:30 Influenza Type B (PCR) Not detected (NOT DETECT) 04/24/23 16:30 M. pneumoniae (PCR) Not detected (NOT DETECT) 04/24/23 16:30 Parainfluenza 1 (PCR) Not detected (NOT DETECT) 04/24/23 16:30 Parainfluenza 2 (PCR) Not detected (NOT DETECT) 04/24/23 16:30 Parainfluenza 3 (PCR) Not detected (NOT DETECT) 04/24/23 16:30 Parainfluenza 4 (PCR) Not detected (NOT DETECT) 04/24/23 16:30 RSV Type A (PCR) Not detected (NOT DETECT) 04/24/23 16:30 RSV Type B (PCR) Not detected (NOT DETECT) 04/24/23 16:30 Entero/Rhino (PCR) Not detected (NOT DETECT) 04/24/23 16:30 SARS-CoV-2 (PCR) Not detected (NOT DETECT) 04/24/23 16:30 Vitals Last Vital Signs Temp 97.5 F L 04/27/23 08:00 Pulse 60 04/27/23 08:00 Resp 20 H 04/27/23 08:00 BP 171/90 04/27/23 08:00 Pulse Ox 92 04/27/23 08:00 O2 Del Method Room Air 04/27/23 08:00 O2 Flow Rate 2 04/26/23 08:05 FiO2 50 04/24/23 16:00 Discharge Plan Discharge Patient Disposition: Home Health Service Condition: Stable Prescriptions: New amlodipine 10 mg tablet 10 mg PO DAILY Qty: 30 0RF amoxicillin-pot clavulanate 875-125 mg tablet 1 tab PO BID 10 Days Qty: 20 0RF prednisone 20 mg tablet 20 mg PO DAILY 3 Days Qty: 3 0RF Rx Instructions: first dose 04/27 Continued levothyroxine 100 mcg tablet 100 mcg PO DAILY Qty: 90 0RF Rx Instructions: decrease dose atorvastatin 10 mg tablet 10 mg PO DAILY Qty: 30 5RF Xarelto 20 mg tablet 20 mg PO DAILY Qty: 30 2RF Rx Instructions: must administer with evening meal multivitamin Tablet 1 tab PO DAILY sennosides-docusate sodium [Senna with Docusate Sodium] 8.6-50 mg tablet 1 tab-cap PO BID PRN (Reason: constipation) Qty: 10 0RF Held lisinopril 40 mg tablet 40 mg PO DAILY Qty: 30 5RF Hold Instructions: till seen by pcp Discharge Orders: Discharge Order (Routine); Ordered 04/27/23 Ordered By: Magda Wheeler Other Ambulatory Orders: Basic Metabolic Panel (Routine) Timeframe: 3 Days Facility: [facility] - Location: Lab - Main Lab Ordered By: Magda Wheeler Referrals: [facility] [Other] Marilou Pastrana FNP-C [Primary Care Provider] - 05/08/23 10:00 am Niki Nevarez FNP [Nurse Practitioner] - 05/16/23 1:00 pm Discharge Diet: Cardiac Discharge Activity: Resume usual activity Patient Instructions: Opioid Safety Discharge Attestations Time Spent in Discharge Care*: greater than 30 min Quality Metrics Clinical Quality Measures [ No reported AMI, CVA or VTE this stay] Coding Level of Care Code Acute Code for Chg Fwd Diagnoses Essential (primary) hypertension I10 Prolonged QT interval R94.31 Varicose veins of bilateral lower extremities with pain I83.813 DVT (deep venous thrombosis) I82.409 Adult onset hypothyroidism E03.8 Vitamin D insufficiency E55.9 Hypoplastic kidney Q60.5 Meningioma, cerebral D32.0 Poor short term memory R41.3 Acute exacerbation of CHF (congestive heart failure) I50.9
== END 2023-04-27 14:40 | disposition home health service (06) | DRG 291 ==
LOC: ER 16:04 → MEDSURG 19:38
PROVIDERS: Admitting Provider Internal Medicine; Emergency Provider Family Medicine; PCP Nurse Practitioner; Visit Provider Internal Medicine
DX: I11.0 Hypertensive heart disease with heart failure (principal); I50.33 Acute on chronic diastolic (congestive) heart failure; Q60.3 Renal hypoplasia, unilateral; N17.9 Acute kidney failure, unspecified; J21.9 Acute bronchiolitis, unspecified; Z66 Do not resuscitate; E03.9 Hypothyroidism, unspecified; Z79.01 Long term (current) use of anticoagulants; Z86.718 Personal history of other venous thrombosis and embolism; F03.90 Unspecified dementia, unspecified severity, without behavioral disturbance, psychotic disturbance, mood disturbance, and anxiety; D72.825 Bandemia; D32.0 Benign neoplasm of cerebral meninges; I83.813 Varicose veins of bilateral lower extremities with pain; E78.2 Mixed hyperlipidemia
CPT/HCPCS: 36415; 36600; 51702; 71045; 71250; 74176; 80048; 80051; 80053; 81001; 82330; 82805; 83605; 83735; 83880; 84145; 84484; 85007; 85025; 85610; 87040; 87486; 87581; 87633; 93005; 93306; 94640; 94660; 96365; 96367; 96372; 97110; 97116; 97161; 99291; J1100; J1940; J2543; J2920; J3370; J7030; J7050

== ENCOUNTER → 2023-05-08 11:07 | Outpatient (BNVA) | payer MEDICARE, SELFPAY | PROVIDERS: PCP Nurse Practitioner; Visit Provider Nurse Practitioner | DX: I10 Essential (primary) hypertension (principal) | CPT/HCPCS: 80048 ==

== ENCOUNTER → 2023-05-16 12:58 | Outpatient (BNVA) | payer MEDICARE, SELFPAY | PROVIDERS: PCP Nurse Practitioner; Visit Provider Nurse Practitioner Family | DX: I10 Essential (primary) hypertension (principal) | CPT/HCPCS: 99213 ==

== ENCOUNTER → 2023-05-31 09:03 | Outpatient (BNVA) | payer MEDICARE, SELFPAY | PROVIDERS: PCP Nurse Practitioner; Visit Provider Nurse Practitioner | DX: N18.9 Chronic kidney disease, unspecified (principal); E55.9 Vitamin D deficiency, unspecified | CPT/HCPCS: 71046; 80069; 82306; 82310; 82570; 83970; 84156 ==

== ENCOUNTER 2023-06-10 09:22 | Emergency (ER) | payer MEDICARE, SELFPAY ==
[2023-06-10 09:23] VITALS: BP 158/82; PULSE 52; RESP 16; TEMP 36.4; O2SAT 97
--- NOTE | 2023-06-10 09:27 | XRR_ITS ---
PROCEDURE INFORMATION: Exam: XR Chest Exam date and time: 06/10/2023 9:43 AM Age: 87 years old Clinical indication: Shortness of breath; Patient HX: SOB, nausea, ex smoker TECHNIQUE: Imaging protocol: Radiologic exam of the chest. Views: 1 view. COMPARISON: CR XR chest 2V* [id number] 05/31/2023 9:03 AM FINDINGS: Lungs: Unremarkable. No consolidation. Pleural spaces: Unremarkable. No pleural effusion. No pneumothorax. Heart/Mediastinum: Unremarkable. No cardiomegaly. Vasculature: There are vascular calcifications. Bones/joints: Moderate degenerative disease of bilateral acromioclavicular joints and bilateral glenohumeral joints. Narrowing of bilateral subacromial distance consistent with chronic rotator cuff disease. There is a curvature of the thoracic spine convex to the right. XR/XR chest 1V [id number] IMPRESSION: No acute cardiopulmonary process.
--- NOTE | 2023-06-10 09:30 | ECG_ITS ---
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 Measurements Intervals [place] Rate: 53 P: 6 IL: 166 QRS: 44 QRSD: 94 T: 69 QT: 456 QTc: 431 Interpretive Statements SINUS BRADYCARDIA WITH OCCASIONAL SUPRAVENTRICULAR PREMATURE COMPLEXES Features of possible RVH/posterior wall PR NONSPECIFIC T-WAVE ABNORMALITY Compared to ECG 04/24/2023 18:00:55 The features of RVH/possible PR appears to be new Electronically Signed On 06-10-2023 19:34:33 CDT by Cyndee Mancilla M.D. [id number]
--- NOTE | 2023-06-10 09:30 | ED_ITS ---
HPI - Dizziness 2 General: Chief Complaint: Dizziness Stated Complaint: near syncope/Nausea Time Seen by Provider: 06/10/23 09:26 History of Present Illness: HPI Narrative: 87-year-old female with a history of hyp ertension, hyperlipidemia DVT on Xarelto who presents to the emergency room by ambulance this morning after having had an episode of dizziness/near syncope followed by some nausea. This is all resolved now. She has known bradycardia and is bradycardic on presentation. Blood pressure is 158/82. She says she feels better at this point. No fevers. She did not vomit. She is not short of breath currently. No chest pain. No abdominal pain. Review of Systems 2 Narrative: Constitutional symptoms: Negative except as documented in HPI. Skin symptoms: Negative except as documented in HPI. Eye symptoms: Negative except as documented in HPI. ENMT symptoms: Negative except as documented in HPI. Respiratory symptoms: Negative except as documented in HPI. Cardiovascular symptoms: Negative except as documented in HPI. Gastrointestinal symptoms: Negative except as documented in HPI. Genitourinary symptoms: Negative except as documented in HPI. Musculoskeletal symptoms: Negative except as documented in HPI. Neurologic symptoms: Negative except as documented in HPI. Psychiatric symptoms: Negative except as documented in HPI. Endocrine symptoms: Negative except as documented in HPI. PFSH ED 2 PFSH: Medical History DVT (deep venous thrombosis) Meningioma, cerebral Accelerated hypertension Syncope Bradycardia Rhabdomyolysis Cigarette smoker Adult onset hypothyroidism Mixed hyperlipidemia Essential (primary) hypertension Vitamin D insufficiency Basal cell carcinoma (BCC) Surgical History History of left hip hemiarthroplasty Surgery: Left hip hemiarthroplasty Surgeon: Dr. Fransico Puente DO Date of Surgery: 12/23/2022. History of hip surgery right 2018 History of cataract surgery Family History Other Cancer Congestive heart failure (CHF) Diabetes Social History Smoking and tobacco/nicotine status: never used tobacco/nicotine Second hand smoke exposure: No Alcohol intake: never Substance/Drug Use: never Adopted: No Caregiver/support person: No Lives independently: Yes Marital status: Single Number of children: 2 Current occupational status: retired Do you think of yourself as: Straight/Heterosexual Current gender identity: Female Physical Exam 2 Narrative: EXAM NARRATIVE: General: Alert, no acute distress. Skin: Warm, dry. Head: Normocephalic, atraumatic. Neck: Supple, trachea midline. Eye: Extraocular movements are intact. Ears, nose, mouth and throat: mucosa moist. Cardiovascular: Regular, bradycardic, normal peripheral perfusion. Respiratory: Lungs are clear to auscultation, respirations are non-labored, breath sounds are equal, Symmetrical chest wall expansion. Gastrointestinal: Soft, Nontender, Non distended, Normal bowel sounds. Musculoskeletal: Normal ROM, no deformity. Neurological: Alert and oriented, No focal neurological deficit observed. Psychiatric: Cooperative, appropriate mood & affect. Course 2 Vital Signs: Vital signs: Vital Signs Temperature 97.6 F 06/10/23 09:23 Pulse Rate 58 L 06/10/23 11:25 Respiratory Rate 17 06/10/23 11:25 Blood Pressure 155/76 06/10/23 11:25 Pulse Oximetry 97 06/10/23 11:25 Oxygen Delivery Me thod Room Air 06/10/23 09:23 MDM - Dizziness Medical Decision Making Medical decision making: Differential diagnosis including but not limited to and based on the above HPI, review of systems and physical exam: This sounds a lot like orthostasis. Would have concern for underlying infection such as pneumonia or urinary tract infection. Chest x-ray and urinalysis were ordered. Basic lab work to look for renal failure. Also would have concern for acute coronary syndrome so an EKG and cardiac markers were ordered. Orders placed to evaluate differential diagnosis based on the above differential, HPI and physical exam Chest x-ray: No acute process. Scoliosis. No infiltrate. No pneumothorax. No cardiomegaly. This was reviewed and interpreted by myself the ER physician. Lab Review: Laboratory results were reviewed and interpreted by myself the emergency room physician. Lab workup is unremarkable. White count is 6. Hemoglobin is 12. BUN and creatinine are 25 and 1.3 which is similar to previous. No UTI. No pneumonia. Cardiac markers are not elevated I reviewed the patient's medical record. Reexamination: Patient remained stable. No increased work of breathing. No altered mental status. No focal motor deficits. Her blood pressures remain normal here. Lab Data 04/27/24 10:52 06/10/23 10:52 Radiology Impressions Chest X-Ray 06/10/23 09:27 IMPRESSION: No acute cardiopulmonary process. Laboratory Results WBC 6.16 10^3/uL (3.29-11.43) 06/10/23 10:52 RBC 4.15 10^6/uL (3.85-5.65) 06/10/23 10:52 Hgb 12.60 g/dL (11.27-16.99) 06/10/23 10:52 Hct 39.3 % (36-47) 06/10/23 10:52 MCV 94.7 fl (85-98) 06/10/23 10:52 MCH 30.4 pg (27-33) 06/10/23 10:52 MCHC 32.1 g/dL (30-55) 06/10/23 10:52 RDW 16.5 % (12.1-15.1) H 06/10/23 10:52 Plt Count 253 10^3/cmm (157-399) 06/10/23 10:52 MPV 10.3 fL (7.4-10.4) 06/10/23 10:52 Neut % (Auto) 77.8 % 06/10/23 10:52 Lymph % (Auto) 14.6 % 06/10/23 10:52 Vance % (Auto) 3.9 % 06/10/23 10:52 Eos % (Auto) 2.6 % 06/10/23 10:52 Baso % (Auto) 0.8 % 06/10/23 10:52 Neut # (Auto) 4.79 10^3/uL (1.8-7.7) 06/10/23 10:52 Lymph # (Auto) 0.9 10^3/uL (0.8-4.8) 06/10/23 10:52 Vance # (Auto) 0.2 10^3/uL (0.2-0.9) 06/10/23 10:52 Eos # (Auto) 0.2 10^3/uL (0.0-0.8) 06/10/23 10:52 Baso # (Auto) 0.1 10^3/uL (0.0-0.1) 06/10/23 10:52 Nucleated RBC % (auto) 0 % 06/10/23 10:52 Nucleated RBCs # 0.0 /100WBC 06/10/23 10:52 Sodium 141 mmol/L (136-145) 06/10/23 10:52 Potassium 4.6 mmol/L (3.5-5.1) 06/10/23 10:52 Chloride 104 mmol/L (98-107) 06/10/23 10:52 Carbon Dioxide 28 mmol/L (22-29) 06/10/23 10:52 Anion Gap 13.6 (5-19) 06/10/23 10:52 BUN 25 mg/dL (8-23) H 06/10/23 10:52 Creatinine 1.3 mg/dL (0.5-0.9) H 06/10/23 10:52 GFR Calculation Not Reportable 06/10/23 10:52 Glucose 98 mg/dL (65-115) 06/10/23 10:52 Calculated Osmolality 296 mOsm/kg (285-295) H 06/10/23 10:52 Calcium 9.2 mg/dL (8.5-10.5) 06/10/23 10:52 Total Bilirubin 0.3 mg/dL (0.15-1.2) 06/10/23 10:52 AST 15 U/L (0-32) 06/10/23 10:52 ALT 8 U/L (0-33) 06/10/23 10:52 Alkaline Phosphatase 94 U/L (35-105) 06/10/23 10:52 Troponin T Baseline 29 ng/L (0-10) H 06/10/23 10:52 C-Reactive Protein 3.0 mg/L (0.0-4.9) 06/10/23 10:52 Total Protein 7.1 g/dL (6.6-8.7) 06/10/23 10:52 Albumin 3.9 g/dL (3.5-5.2) 06/10/23 10:52 Globulin 3.2 g/dL (1.3-4.6) 06/10/23 10:52 Urine Color Straw (Yellow) 06/10/23 10:30 Urine Appearance Clear (CLEAR) 06/10/23 10:30 Urine pH 6.5 (5-7) 06/10/23 10:30 Ur Specific [place] 1.010 (1.005-1.030) 06/10/23 10:30 Urine Protein Neg (Negative) 06/10/23 10:30 Urine Glucose (UA) Norm (Normal) 06/10/23 10:30 Urine Ketones Negative (Negative) 06/10/23 10:30 Urine Blood 2+ (Negative) H 06/10/23 10:30 Urine Nitrate Negative (Negative) 06/10/23 10:30 Urine Bilirubin Neg (Negative) 06/10/23 10:30 Urine Urobilinogen Norm mg/dL (Negative) 06/10/23 10:30 Ur Leukocyte Esterase Negative (Negative) 06/10/23 10:30 Urine RBC 0-4 /hpf (0-2) H 06/10/23 10:30 Urine WBC Rare /hpf (0-5) 06/10/23 10:30 Ur Squamous Epith Cells None /hpf (0-5) 06/10/23 10:30 Amorphous Sediment Not Reportable 06/10/23 10:30 Urine Bacteria 1+ /hpf (NONE) H 06/10/23 10:30 Influenza Type A Ag negative (Negative) 06/10/23 09:31 Influenza Type B Ag negative (Negative) 06/10/23 09:31 SARS-CoV-2 Ag (Rapid) negative (Negative) 06/10/23 09:31 All radiology interpretation(s) finalized by discharge Other Data Assessment and plan: Near syncope -I think patient likely had an orthostatic event this morning. Her blood pressure has been normal here and orthostatics were normal as well. Discussed being careful with standing and to make sure she is not going to drop her blood pressure when she does stand up and fall down. - Discharged home - Discussed findings and plan with patient. Answered any questions. - All laboratory values were reviewed and interpreted personally by myself, the ER physician - All imaging was reviewed and interpreted personally by myself, the ER physician. - Evaluation and treatment of this problem were appropriate in the emergency setting Discharge Plan Discharge Patient Disposition: Home Clinical Impression: Orthostasis, Near syncope Condition: Stable Prescriptions: No Action levothyroxine 100 mcg tablet 100 mcg PO DAILY Qty: 90 0RF atorvastatin 10 mg tablet 10 mg PO DAILY Qty: 30 5RF meclizine 25 mg tablet 25 mg PO .at bedtime Qty: 30 0RF fluticasone propionate [Flonase Allergy Relief] 50 mcg/actuation spray,suspension 2 spray intranasal DAILY Qty: 16 0RF Rx Instructions: administer into each nostril Xarelto 20 mg tablet 20 mg PO DAILY Qty: 30 2RF Rx Instructions: must administer with evening meal (DME) E0247 Transfer Bench See Rx Instructions .Route .MEDSUPPLY Qty: 1 0RF Rx Instructions: As directed (DME) E0635 Lift chair See Rx Instructions .Route .MEDSUPPLY Qty: 1 0RF Rx Instructions: As directed lisinopril 10 mg tablet 10 mg PO DAILY Qty: 90 3RF Hold Instructions: till seen by pcp amlodipine 10 mg tablet 10 mg PO DAILY Qty: 30 2RF multivitamin Tablet 1 tab PO DAILY Discharge Orders: Discharge ED (Routine); Ordered 06/10/23 Ordered By: Leigh Matthews Referrals: Marilou Pastrana, ENGINE BUILDUP MECHANIC-[employer] [Primary Care Provider] - (You have been screened and evaluated and felt safe for discharge. Health conditions do change or evolve sometimes and as such it is important that you follow up with your Primary Doctor to be re checked, 3-5 days is a general good time frame for follow up. You are always welcome to return to the ED for re assessment if your symptoms are worsening or you have new concerns) Discharge Diet: Usual diet Discharge Activity: Resume usual activity Patient Instructions: Near Syncope (ED) Coding Level of Care Code ED Aircraft Engine Technician for Srinivas Henriquez
[2023-06-10 09:34] VITALS: BP 158/82; BP 160/79; BP 166/72; BP 182/75; PULSE 54; PULSE 63; PULSE 71; PULSE 73; RESP 16; O2SAT 97
[2023-06-10 09:59] LABS: Influenza A by IFA negative (Negative); Influenza B by IFA negative (Negative); SARS Covid-2 Antigen negative (Negative)
--- NOTE | 2023-06-10 10:16 | PC.PHAR ---
PT STS SHE HAS ALL LISTED MEDICATIONS AT HOME AND TAKES ALL OF THEM PRN- ONLY WHEN SHE FEELS LIKE SHE NEEDS THEM
[2023-06-10 10:51] LABS: Add Urine Culture? No; Bacteria Urine 1+ /hpf; Bilirubin Urine Neg (Negative); Blood Urine 2+ (Negative); Glucose Urine UA Norm (Normal); Ketones Urine Negative (Negative); Leukocyte Esterase Urine Negative (Negative); Nitrate Urine Negative (Negative); Protein Urine Neg (Negative); RBC Urine 0-4 /hpf (0-2); Urine Appearance Clear (CLEAR); Urine Color Straw (Yellow); Urobilinogen Urine Norm (Negative); WBC Urine RARE /hpf (0-5); pH Urine 6.5 (5-7)
[2023-06-10 11:24] LABS: Basophils # 0.1 10^3/uL (0.0-0.1); Basophils % 0.8 %; Eosinophils # 0.2 10^3/uL (0.0-0.8); Eosinophils % 2.6 %; Hematocrit 39.3 % (36-47); Lymphocytes # 0.9 10^3/uL (0.8-4.8); Lymphocytes % 14.6 %; Mean Corpuscular HGB Conc 32.1 g/dL (30-55); Mean Corpuscular Hemoglobin 30.4 pg (27-33); Mean Corpuscular Volume 94.7 fl (85-98); Mean Platelet Volume 10.3 fL (7.4-10.4); Monocytes # 0.2 10^3/uL (0.2-0.9); Monocytes % 3.9 %; Neutrophils # 4.79 10^3/uL (1.8-7.7); Neutrophils % 77.8 %; Nucleated Red Blood Cells % 0 %; Platelet Count 253 10^3/cmm (157-399); Red Blood Count 4.15 10^6/uL (3.85-5.65); Red Cell Distribution Width 16.5 % (12.1-15.1); White Blood Count 6.16 10^3/uL (3.29-11.43)
[2023-06-10 11:25] VITALS: BP 155/76; PULSE 58; RESP 17; O2SAT 97
[2023-06-10 11:45] LABS: Troponin(5th) Baseline 29 ng/L (0-10)
[2023-06-10 11:48] LABS: Alanine Aminotransferase 8 U/L (0-33); Albumin Level 3.9 g/dL (3.5-5.2); Alkaline Phosphatase 94 U/L (35-105); Anion Gap 13.6 (5-19); Aspartate Amino Transferase 15 U/L (0-32); Blood Urea Nitrogen 25 mg/dL (8-23); Calcium 9.2 mg/dL (8.5-10.5); Carbon Dioxide 28 mmol/L (22-29); Chloride 104 mmol/L (98-107); Creatinine Clr Calc Pharmacy 32.3793; Globulin 3.2 g/dL (1.3-4.6); Glucose 98 mg/dL (65-115); Osmolality Calculated 296 mOsm/kg (285-295); Potassium 4.6 mmol/L (3.5-5.1); Sodium 141 mmol/L (136-145); Total Bilirubin 0.3 mg/dL (0.15-1.2); Total Protein 7.1 g/dL (6.6-8.7)
[2023-06-10 12:13] VITALS: BP 149/76; PULSE 55; RESP 13; O2SAT 100
[2023-06-10 12:15] VITALS: BP 149/76; PULSE 55; RESP 13; O2SAT 100
== END 2023-06-10 12:36 | disposition home or self-care (01) ==
PROVIDERS: Emergency Provider Emergency Medicine; PCP Nurse Practitioner
DX: I95.1 Orthostatic hypotension (principal); Z11.52 Encounter for screening for COVID-19; I10 Essential (primary) hypertension; E78.2 Mixed hyperlipidemia
CPT/HCPCS: 36415; 71045; 80053; 81001; 84484; 85025; 86140; 87040; 87426; 87804; 93005; 99285

== ENCOUNTER → 2023-06-15 15:13 | Outpatient (BNVA) | payer MEDICARE, SELFPAY | PROVIDERS: PCP Nurse Practitioner; Visit Provider Nurse Practitioner | DX: E03.8 Other specified hypothyroidism (principal) | CPT/HCPCS: 84443 ==

== ENCOUNTER → 2023-10-09 10:10 | Outpatient (BNVA) | payer MEDICARE, SELFPAY | PROVIDERS: PCP Nurse Practitioner; Visit Provider Nurse Practitioner Family | DX: I10 Essential (primary) hypertension (principal); Z87.891 Personal history of nicotine dependence | CPT/HCPCS: 99213 ==

== ENCOUNTER → 2023-11-15 10:19 | Outpatient (BNVA) | payer MEDICARE, SELFPAY | PROVIDERS: PCP Nurse Practitioner; Visit Provider Nurse Practitioner | DX: N18.9 Chronic kidney disease, unspecified (principal) | CPT/HCPCS: 80069; 82310; 82570; 83970; 84156; 84439; 84443; 84481; 85025 ==

== ENCOUNTER → 2024-01-23 13:58 | Outpatient (BNVA) | payer MEDICARE, SELFPAY | PROVIDERS: PCP Nurse Practitioner; Visit Provider Nurse Practitioner | DX: E03.8 Other specified hypothyroidism (principal) | CPT/HCPCS: 84439; 84443; 84481 ==

== ENCOUNTER → 2024-07-09 14:57 | Outpatient (BNVA) | payer MEDICARE, SELFPAY | PROVIDERS: PCP Nurse Practitioner; Visit Provider Nurse Practitioner | DX: I10 Essential (primary) hypertension (principal); E03.8 Other specified hypothyroidism | CPT/HCPCS: 80053; 80061; 84439; 84443; 84481; 85025 ==

== ENCOUNTER → 2024-12-30 15:03 | Outpatient (BNVA) | payer MEDICARE, SELFPAY | PROVIDERS: PCP Nurse Practitioner; Visit Provider Nurse Practitioner | DX: I10 Essential (primary) hypertension (principal); E55.9 Vitamin D deficiency, unspecified; E03.8 Other specified hypothyroidism | CPT/HCPCS: 80053; 80061; 82306; 82607; 84439; 84443; 84481; 85025 ==